=== PATIENT | male | born 1945 | race Caucasian/White ===

== ENCOUNTER → 2018-08-29 14:09 | Outpatient (CLI) | payer MEDICARE, OTHER, SELFPAY ==
[2018-08-29 16:32] LABS: PSA,Total - Annual Screen 3.88 ng/mL (0.00-4.00)
--- OUTSIDE RECORDS SUMMARY | 2018-10-11 11:49 | XMS RPT_ITS | Clinical Summary ---
:1945 Author Organization [place] [employer] [email or web address] Address [address] [place] [address] Phone Care Team Providers Name Role Phone Martina eMdina Unavailable Conditions or Problems Problem Problem Onset Status Entry Provider Comment Standard Annotate Name Code Date Date Description Extensor [id number] Active Radha Miranda Extensor tenosynovit (SNOMED 04/22 04/22 [place] tenosynovitis is of wrist CT) of wrist DeQuervains 36615717 Active Radha Miranda Radial styloid tenosynovit (SNOMED 04/22 04/[address] [place] [address] CT) Wrist pain, 02317468 Active Toya Pain in wrist right (SNOMED 04/22 04/[address]) ANAL 37648433 Active Desiree M Pruritus ani PRURITUS (SNOMED 10/[address]) ABDOMINAL 571689902 Resolved Desiree M Right upper PAIN, RIGHT (SNOMED 01/17 [place] quadrant pain UPPER CT) QUADRANT ABDOMINAL 360326427 Removed Desiree M Right upper PAIN, RIGHT (SNOMED 01/17 [place] quadrant pain UPPER CT) QUADRANT NONSPECIFIC R93.2 Correction Desiree M Abnormal ABN FINDNG (ICD-10-CM 01/13 01/17 [place] findings on RAD&OTH ) diagnostic EXAM BILARY imaging of TRCT liver and biliary tract OSTEOARTHRI 261775980 Active Radha Miranda Osteoarthritis TIS, KNEE, (SNOMED 10/17 [place] of knee LEFT CT) KNEE 71272948 Active Radha Miranda Sprain of SPRAIN, (SNOMED 10/17 10/17 [place] medial LEFT, CT) collateral MEDIAL ligament of COLLATERAL knee LIGAMENT KNEE PAIN 01121454 Active Toya Knee pain (SNOMED 10/17 10/[address]) MEDIAL 371316980 Active Toya Tear of medial MENISCUS (SNOMED 10/17 10/17 [place] meniscus of TEAR CT) knee Medications Medication Instructions Start Stop Generic Name NDC Provider Date Date LOVASTATIN 10 MG One tablet by / LOVASTATIN [id number] Toya TABS mouth daily 14 [place] BROMOCRIPTINE One tablet by / BROMOCRIPTINE [id number] Toya MESYLATE 2.5 MG mouth daily 14 MESYLATE [place] TABS ALEVE 220 MG One tablet by / NAPROXEN SODIUM 53303624776 Toya TABS mouth daily 14 [place] LEVOTHYROXINE / LEVOTHYROXINE 59455834726 Toya SODIUM 50 MCG 20 SODIUM [place] TABS NIACIN 500 MG / NIACIN 84636331271 Toya TABS 20 [place] FISH OIL 1000 MG / OMEGA-3 FATTY 94923072291 Toya CAPS 20 ACIDS [place] Medications Administered No information available. Allergies, Adverse Reactions, Alerts Allergy Name Reaction Description Start Date Severity Status Provider JOHN Critical Active Pia Coelho PRAVACHOL Critical Active Pia Coelho Results Date Name Value Unit Range Flag Description Office Visit SMOK STATUS former smoker Tobacco use [facility] MEDS REVIEW Done Documentation of current medications (procedure) Plan of Care Type Date Detail Referral Physical Therapy [facility], [address] [place] [address], [phone] Referral Physical Therapy [facility], [address] [place] [address], [phone] Pending order X-Ray, Wrist Procedures Code Procedure Name Date Entry Date CPT-63860 LAPAROSCOPY SURG CHOLECYSTECTOMY Vital Signs Date Name Value Unit Description BMI (Body Mass Index) 29.30 kg/m2 Body Mass Index [Ratio] Body Temperature 98.7 [degF] temperature E&M BP Diastolic 72 mm[Hg] blood pressure, diastolic - 8462-4 BP Systolic 127 mm[Hg] blood pressure, systolic - 8480-6 BSA (Body Surface Area) 1.96 body surface area Heart Rate 83 /min pulse rate E&M - 8867-4 Respiratory Rate 14 /min respiratory rate E&M - 9279-1 Weight Measured 186.4 [lb_av] weight E&M - 3141-9 Height 67 [in_us] height E&M - 8302-2
--- OUTSIDE RECORDS SUMMARY | 2018-10-11 11:49 | XMS RPT_ITS | Clinical Summary ---
:1945 Author Organization [place] [facility] Address [address] [place] [address] Phone Care Team Providers Name Role Phone Martina Medina Unavailable Conditions or Problems Problem Problem Onset Status Entry Provider Comment Standard Annotate Name Code Date Date Description Extensor [id number] Active Radha Miranda Extensor tenosynovit (SNOMED 04/22 04/22 [place] tenosynovitis is of wrist CT) of wrist DeQuervains 40885418 Active Radha Miranda Radial styloid tenosynovit (SNOMED 04/22 04/22 [place] [address] CT) Wrist pain, 63388899 Active Toya Pain in wrist right (SNOMED 04/22 04/[address]) ANAL 09547379 Active Desiree M Pruritus ani PRURITUS (SNOMED 10/[address]) ABDOMINAL 404860495 Resolved Desiree M Right upper PAIN, RIGHT (SNOMED 01/17 [place] quadrant pain UPPER CT) QUADRANT ABDOMINAL 087553677 Removed Desiree M Right upper PAIN, RIGHT (SNOMED 01/17 [place] quadrant pain UPPER CT) QUADRANT NONSPECIFIC R93.2 Correction Desiree M Abnormal ABN FINDNG (ICD-10-CM 01/13 01/17 [place] findings on RAD&OTH ) diagnostic EXAM BILARY imaging of TRCT liver and biliary tract OSTEOARTHRI 627300681 Active Radha Miranda Osteoarthritis TIS, KNEE, (SNOMED 10/17 [place] of knee LEFT CT) KNEE 17610148 Active Radha Miranda Sprain of SPRAIN, (SNOMED 10/17 10/17 [place] medial LEFT, CT) collateral MEDIAL ligament of COLLATERAL knee LIGAMENT KNEE PAIN 21533329 Active Radha Miranda Knee pain (SNOMED 10/17 10/[address]) MEDIAL 990903888 Active Toya Tear of medial MENISCUS (SNOMED 10/17 10/17 [place] meniscus of TEAR CT) knee Medications Medication Instructions Start Stop Generic Name NDC Provider Date Date LOVASTATIN 10 MG One tablet by / LOVASTATIN 92298828660 Toya TABS mouth daily 14 [place] BROMOCRIPTINE One tablet by / BROMOCRIPTINE 91007390528 Toya MESYLATE 2.5 MG mouth daily 14 MESYLATE [place] TABS ALEVE 220 MG One tablet by / NAPROXEN SODIUM 32014273696 Toya TABS mouth daily 14 [place] LEVOTHYROXINE / LEVOTHYROXINE 63268075154 Toya SODIUM 50 MCG 20 SODIUM [place] TABS NIACIN 500 MG / NIACIN 68904857666 Toya TABS 20 [place] FISH OIL 1000 MG / OMEGA-3 FATTY 14872969645 Tyoa CAPS 20 ACIDS [place] Medications Administered No information available. Allergies, Adverse Reactions, Alerts Allergy Name Reaction Description Start Date Severity Status Provider JOHN Critical Active Pia Coelho PRAVACHOL Critical Active Pia Coelho Results Date Name Value Unit Range Flag Description Office Visit MEDS REVIEW Done Documentation of current medications (procedure) SMOK STATUS Former smoker Tobacco use [facility] Plan of Care Type Date Detail Referral Physical Therapy [facility], [address] [place] [address], [phone] Referral Physical Therapy [facility], [address] [place] [address], [phone] Pending order X-Ray, Wrist Procedures Code Procedure Name Date Entry Date CPT-56405 LAPAROSCOPY SURG CHOLECYSTECTOMY Vital Signs Date Name [...]
--- OUTSIDE RECORDS SUMMARY | 2018-10-11 11:49 | XMS RPT_ITS | Clinical Summary ---
:1945 Author Organization [facility] Address [address] [place] [address] Phone Care Team Providers Name Role Phone Martina Medina Unavailable Conditions or Problems Problem Problem Onset Status Entry Provider Comment Standard Annotate Name Code Date Date Description ANAL 07672155 Active Desiree Chowdhury Pruritus ani PRURITUS (SNOMED 10/[address]) ABDOMINAL 471987754 Resolved Desiree M Right upper PAIN, RIGHT (SNOMED 01/17 [place] quadrant pain UPPER CT) QUADRANT ABDOMINAL 459441787 Removed Desiree M Right upper PAIN, RIGHT (SNOMED 01/17 [place] quadrant pain UPPER CT) QUADRANT NONSPECIFIC R93.2 Correction Desiree Chowdhury Abnormal ABN FINDNG (ICD-10-CM 01/13 01/17 [place] findings on RAD&OTH ) diagnostic EXAM BILARY imaging of TRCT liver and biliary tract OSTEOARTHRI 208571254 Active Radha Miranda Osteoarthritis TIS, KNEE, (SNOMED 10/17 [place] of knee LEFT CT) KNEE 13100628 Active Radha Miranda Sprain of SPRAIN, (SNOMED 10/17 10/17 [place] medial LEFT, CT) collateral MEDIAL ligament of COLLATERAL knee LIGAMENT KNEE PAIN 24378931 Active Radha Miranda Knee pain (SNOMED 10/17 10/[address]) MEDIAL 309827834 Active Radha Miranda Tear of medial MENISCUS (SNOMED 10/17 10/17 [place] meniscus of TEAR CT) knee Medications Medication Instructions Start Stop Generic Name NDC Provider Date Date LOVASTATIN 10 MG One tablet by / LOVASTATIN [id number] Radha Miranda TABS mouth daily 14 [place] BROMOCRIPTINE One tablet by / BROMOCRIPTINE 82077214470 Radha Miranda MESYLATE 2.5 MG mouth daily 14 MESYLATE [place] TABS ALEVE 220 MG One tablet by / NAPROXEN SODIUM 30158748899 Radha Miranda TABS mouth daily 14 [place] Medications Administered No information available. Allergies, Adverse Reactions, Alerts Allergy Name Reaction Description Start Date Severity Status Provider LORELCO Critical Active Pia Coelho PRAVACHOL Critical Active Pia Coelho Results Date Name Value Unit Range Flag Description Office Visit SMOK STATUS former smoker Tobacco use [facility] MEDS REVIEW Done Documentation of current medications (procedure) Plan of Care Type Date Detail Appointment 12:30 PM Radha Wilde, [address] [place] [address], [facility], [place], [address], Procedures Code Procedure Name Date Entry Date CPT-95105 LAPAROSCOPY SURG CHOLECYSTECTOMY Vital Signs Date Name [...]
--- OUTSIDE RECORDS SUMMARY | 2018-10-11 11:49 | XMS RPT_ITS | Clinical Summary ---
:1945 Author Organization [place] [employer] [facility] Address [address] [place] [address] Phone Care Team Providers Name Role Phone Martina Medina Unavailable Conditions or Problems Problem Problem Onset Status Entry Provider Comment Standard Annotate Name Code Date Date Description Extensor 639773600 Active Radha Miranda Extensor tenosynovit (SNOMED 04/22 04/22 [place] tenosynovitis is of wrist CT) of wrist DeQuervains 21736263 Active Radha Miranda Radial styloid tenosynovit (SNOMED 04/22 04/22 [place] tenosynovitis is CT) Wrist pain, 58488675 Active Toya Pain in wrist right (SNOMED 04/22 04/[address]) ANAL 10980047 Active Desiree M Pruritus ani PRURITUS (SNOMED 10/[address]) ABDOMINAL 142717325 Resolved Desiree M Right upper PAIN, RIGHT (SNOMED 01/17 [place] quadrant pain UPPER CT) QUADRANT ABDOMINAL 216254319 Removed Desiree M Right upper PAIN, RIGHT (SNOMED 01/17 [place] quadrant pain UPPER CT) QUADRANT NONSPECIFIC R93.2 Correction Desiree M Abnormal ABN FINDNG (ICD-10-CM 01/13 01/17 [place] findings on RAD&OTH ) diagnostic EXAM BILARY imaging of TRCT liver and biliary tract OSTEOARTHRI 662543787 Active Radha Miranda Osteoarthritis TIS, KNEE, (SNOMED 10/17 [place] of knee LEFT CT) KNEE 77471245 Active Radha Miranda Sprain of SPRAIN, (SNOMED 10/17 10/17 [place] medial LEFT, CT) collateral MEDIAL ligament of COLLATERAL knee LIGAMENT KNEE PAIN 41122814 Active Radha Miranda Knee pain (SNOMED 10/17 10/[address]) MEDIAL 933708335 Active Toya Tear of medial MENISCUS (SNOMED 10/17 10/17 [place] meniscus of TEAR CT) knee Medications Medication Instructions Start Stop Generic Name NDC Provider Date Date LOVASTATIN 10 MG One tablet by / LOVASTATIN [id number] Toya TABS mouth daily 14 [place] BROMOCRIPTINE One tablet by / BROMOCRIPTINE 30812072311 Toya MESYLATE 2.5 MG mouth daily 14 MESYLATE [place] TABS ALEVE 220 MG One tablet by / NAPROXEN SODIUM 45158250366 Toya TABS mouth daily 14 [place] LEVOTHYROXINE / LEVOTHYROXINE 79722311598 Toya SODIUM 50 MCG 20 SODIUM [place] TABS NIACIN 500 MG / NIACIN 68596876309 Toya TABS 20 [place] FISH OIL 1000 MG / OMEGA-3 FATTY 34627751058 Toya CAPS 20 ACIDS [place] Medications Administered No information available. Allergies, Adverse Reactions, Alerts Allergy Name Reaction Description Start Date Severity Status Provider JOHN Critical Active Pia Coelho PRAVACHOL Critical Active Pia Coelho Results Date Name Value Unit Range Flag Description Office Visit MEDS REVIEW Done Documentation of current medications (procedure) SMOK STATUS Former smoker Tobacco use [facility] Plan of Care Type Date Detail Referral Physical Therapy [facility], [address] [place] [address], [phone] Referral Physical Therapy [facility], [address] [place] [address], [phone] Pending order X-Ray, Wrist Procedures Code Procedure Name Date Entry Date CPT-80309 LAPAROSCOPY SURG CHOLECYSTECTOMY Vital Signs Date Name [...]
--- OUTSIDE RECORDS SUMMARY | 2018-10-11 11:50 | XMS RPT_ITS ---
:1945 Author Organization OHIP Care Team Providers Name Role Phone AMNA CAPELLAN ([facility]) Attending Unavailable AMNA CAPELLAN ([facility]) Referring Unavailable JODI OCAMPO Attending Unavailable IVANA MORATAYA Referring Unavailable JODI OCAMPO Referring Unavailable RYANN SCOTT ([facility]) Attending Unavailable RYANN SCOTT ([facility]) Referring Unavailable LOU RAMOS Attending Unavailable LOU RAMOS Referring Unavailable LOU RAMOS Referring Unavailable Jonathan Lobo Attending Unavailable Jonathan Lobo Referring Unavailable Lou Ramos Primary Care Unavailable Radha Wilde Attending Unavailable Opal Cooper Primary Care Unavailable PROBLEMS PROBLEMS DATE TYPE CONDITION / CODE ATTENDING STATUS SOURCE 09/15/2018 Active Dizziness and giddiness NA Active [place] / R42(ICD-10) Clinic Main [place] Repository 08/29/2018 Unknown Z12.5 - Encounter for Jonathan Lobo Active [facility] screening for malignant [facility] neoplasm of prostate / Hospital Z12.5(ICD-10) Repository 01/12/2017 Active Benign neoplasm of NA Active [facility] pituitary gland / Clinic Main D35.2(ICD-10) [place] Repository 10/27/2014 Active Mixed hyperlipidemia / NA Active [place] E78.2(ICD-10) Clinic Main [place] Repository 01/25/2018 Active Hyperprolactinemia / NA Active [place] E22.1(ICD-10) Clinic Main [place] Repository 01/26/2018 Active Hypothyroidism, NA Active [facility] unspecified / Clinic Main E03.9(ICD-10) [place] Repository 01/26/2018 Active Testicular hypofunction NA Active [place] / E29.1(ICD-10) [facility] Main [place] Repository 09/29/2017 Unknown S66.911D - Strain of Chicorelli, Active [facility] unspecified muscle, [facility] fascia and tendon at Hospital wrist and hand level, Repository right hand, subsequent encounter / S66.911D(ICD-10) PROCEDURES PROCEDURES No Procedure Records FoundRESULTS RESULTS CBC AND DIFFERENTIAL Collected: 09/15/2018 Status: F Source: [place] 12:55 PM [facility] REPOSITORY TYPE CODE TESTS RESULT OUT OF REFERENCE UNITS RANGE LAB WBC 3.70-11.00 k/uL WBC 6.96 LAB RBC 4.20-6.00 m/uL RBC 5.15 LAB HGB 13.0-17.0 g/dL Hemoglobin 15.6 LAB HCT 39.0-51.0 % Hematocrit 49.0 LAB MCV 80.0-100.0 fL MCV 95.1 LAB MCH 26.0-34.0 pG MCH 30.3 LAB MCHC 30.5-36.0 g/dL MCHC 31.8 LAB RDWCV 11.5-15.0 % RDW-CV 13.4 LAB PLTCT 150-400 k/uL Platelet Count 171 LAB MPV 9.0-12.7 fL MPV 11.3 LAB ANEUT % Neut% 60.4 LAB AANEUT 1.45-7.50 k/uL Abs Neut 4.20 LAB ALYMP % Lymph% 28.7 LAB AALYMP 1.00-4.00 k/uL Abs Lymph 2.00 LAB AMONO % Hamlin% 8.6 LAB AAMONO <0.87 k/uL Abs Hamlin 0.60 LAB AEOS % Eosin% 1.4 LAB AAEOS <0.46 k/uL Abs Eosin 0.10 LAB ABASO % Baso% 0.9 LAB AABASO <0.11 k/uL Abs Baso 0.06 LAB AUNRBC 0 /100 WBC NRBCs 0.0 LAB ABNRBC <0.01 k/uL Absolute nRBC <0.01 LAB DTYP DTYPE Auto Diff Performed By: #### CBCDIF, BMP, TSH #### [facility] [address] [place], [place] [address] BASIC METABOLIC PANL Collected: 09/15/2018 Status: F Source: [place] 12:55 PM [facility] REPOSITORY TYPE CODE TESTS RESULT OUT OF REFERENCE UNITS RANGE LAB GLU 74-99 mg/dL Glucose 78 Result Comment: The [place] Diabetes Association (ADA) provides guidance for cutoff values for fasting glucose and random glucose. The ADA defines fasting as no caloric intake for at least 8 hours. Fas ting plasma glucose results between 100 to 125 mg/dL indicate increased risk for diabetes (prediabetes). Fasting plasma glucose results greater than or equal to 126 mg/dL meet the criteria for diagnosis of diabetes. In the absence of unequivocal hyperglycemia, results should be confirmed by repeat testing. In a patient with classic symptoms of hyperglycemia or hyperglycemic crisis, random plasma glucose results greater than or equal to 200 mg/dL meet the criteria for diagnosis of diabetes. Reference: Standards of Medical Care in Diabetes 2016, [place] Diabetes Association. Diabetes Care. 2016.39(Suppl 1). LAB BUN 9-24 mg/dL BUN 18 LAB CRET 0.73-1.22 mg/dL Creatinine 1.11 LAB NA 136-144 mmol/L Sodium 140 LAB K 3.7-5.1 mmol/L Potassium 4.6 LAB CL 97-105 mmol/L Chloride 101 LAB CO2 22-30 mmol/L CO2 26 LAB AGAP 9-18 mmol/L Anion Gap 13 LAB CA 8.5-10.2 mg/dL Calcium, Total 9.6 LAB GFRAA eGFR- Amer. >60 LAB GFRNAA . eGFR-All Other Races >60 Result Comment: eGFR (Estimated GFR) Units of measure: mL/min/1.73 meters squared eGFR is derived from the reexpressed MDRD Study equation using the following parameters: serum creatinine, age, gender and race. The creatinine assay has been calibrated to be traceable to IDMS. An eGFR <60 mL/min/1.73m2 for >3 months is consistent with chronic kidney disease. Refer to KDOQI guidelines for clinical interpretation. In patients with unstable renal function, e.g. those with acute kidney injury, the eGFR may not accurately reflect actual GFR. Performed By: #### CBCDIF, BMP, TSH #### [facility] [address] [place], [place] [address] TSH Collected: 09/15/2018 Status: F Source: [place] 12:55 PM [facility] REPOSITORY TYPE CODE TESTS RESULT OUT OF RANGE REFERENCE UNITS LAB TSH 0.400-5.500 uU/mL TSH 4.260 Performed By: #### CBCDIF, BMP, TSH #### [facility] [address] [place], [place] [address] PROGRESS Observed: 09/15/2018 Status: COMPLETED Source: [place] 11:29 AM [facility] [place] REPOSITORY HNO ID: [id number] Author: Lou Ramos Service: (none) Author Type: Physician Type: Progress Notes Filed: 09/15/2018 1:12 PM Note Text: Patient presents with: Establish Care Imm/Inj: Flu Vaccine HPI: Patient presents today for office visit for follow up. HYPOTHYROID: overall doing well. Energy level is stable. HLD:no myalgias. ENDO:still following with endo. No issues with meds. Gets occasionally lightheaded if he does heavy exertion. No chest pain, shortness of breath. No syncope. Usually if he sits for a minute he feels better. Has happened over the last year. No edema. No headache No true vertigo. No speech or vision changes. No numbness or weakness. 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 Component Latest Ref Rng AND Units 04/07/2018 04/27/2018 Protein, Total 6.3 - 8.0 g/dL 6.4 Albumin 3.9 - 4.9 g/dL 4.5 Calcium 8.5 - 10.2 mg/dL 9.3 Bilirubin, Total 0.2 - 1.3 mg/dL 0.7 Alkaline Phosphatase 36 - 108 U/L 82 AST 14 - 40 U/L 27 Glucose 74 - 99 mg/dL 87 BUN 9 - 24 mg/dL 23 Creatinine 0.73 - 1.22 mg/dL 1.23 (H) Sodium 136 - 144 mmol/L 142 Potassium 3.7 - 5.1 mmol/L 4.1 Chloride 97 - 105 mmol/L 104 CO2 22 - 30 mmol/L 26 Anion Gap 9 - 18 mmol/L 12 ALT 10 - 54 U/L 16 eGFR- >60 eGFR-All Other Races . 58 Cholesterol, Total <200 mg/dL 161 Triglyceride <150 mg/dL 209 (H) HDL Cholesterol >39 mg/dL 39 (L) LDL Cholesterol <100 mg/dL 80 Non HDL Cholesterol <130 mg/dL 122 Fasting Time hrs 9 VLDL Cholesterol <30 mg/dL 42 (H) TC:HDL Ratio <5.10 4.13 LDL:HDL Ratio <2.54 2.05 Prolactin 4.0 - 15.2 ng/mL 4.0 MEDICATIONS: Current Outpatient Prescriptions: bromocriptine (PARLODEL) 2.5 mg tablet Take 0.5 tablets by mouth every other day. Cholecalciferol, Vitamin D3, (VITAMIN D) 1,000 unit cap Take 1,000 Units by mouth once daily. levothyroxine (SYNTHROID) 50 mcg tablet Take 1 tablet by mouth once daily. lovastatin (MEVACOR) 10 mg tablet Take 1 tablet by mouth daily at bedtime. naproxen sodium (ALEVE) 220 mg tablet Take 1 tablet by mouth as needed. niacin (NIACIN) 500 mg tablet Take 500 mg by mouth daily with breakfast. Breeding [id number] 500 mg-500 mcg -1 mg-12.5 mg cap Take 500 mg by mouth. No current facility-administered medications for this visit. ALLERGIES: ALLERGIES Allergen Reactions - Lorelco Other] [Oth* Unknown - Pravachol [Pravasta* PAST MEDICAL HISTORY Diagnosis Date - Diverticulosis of colon (without mention of hemorrhage) - Erectile dysfunction 10/12/2013 - Family history of colon cancer 12/26/2015 - Hyperplasia of prostate - Hyperprolactinemia (HCC) - HYPERTROPHY PROSTATE WITH OBST 09/03/2005 - Hypothyroid - INGUINAL HERNIA, BILAT, RECURRENT W/O GANGRENE/OBSTRUCTION 09/01/2005 - Personal history of colonic polyps Colon polyps - Pituitary adenoma (HCC) - Pure hypercholesterolemia PAST SURGICAL HISTORY Procedure Laterality Date - CHOLECYSTECTOMY - COLONOSCOP W/ OR W/O BRS SPEC 2004 Colonoscopy - COLONOSCOP W/ OR W/O BRSH SPEC 12/26/09 Repeat in 5 years (-2014) - KNEE ARTHROSCOPY/SURGERY - REPAIR ING HERNIA,5+Y/O,REDUCIBL Hernia repair, inguinal, recent laparoscopic, had 2 prior hernia repairs on LT - REPAIR OF NASAL SEPTUM Septoplasty - TRANSURETHRAL ELEC-SURG PROSTATECTOM 2010 TURP FAMILY HISTORY Problem Relation Age of Onset - Coronary Artery Disease Father - Colon Cancer Mother Social History Marital status: Spouse name: opal Years of education: Number of children: 5 Occupational History Occupation Employer Comment [employer] retired Social History Main Topics Smoking status: Former Smoker Packs/day: 0.00 Years: 0.00 Quit date: 09/03/1975 Smokeless tobacco: Never Used Comment: vary rare usage Alcohol use: Yes Comment: TWICE YEARLY Drug use: No Sexual activity: Yes Partners with: Female control/protection: Surgical Other Topics Concern Service No Blood Transfusions No Caffeine Concern No Occupational Exposure No Hobby Hazards No Sleep Concern No Stress Concern No Weight Concern No Special Diet No Back Care No Exercise Yes Comment:moderate Bike Helmet No Seat Belt Yes Self-Exams No Reviewed current medications, allergies, past medical history, surgical history, family history and social history today. REVIEW OF SYSTEMS GI: Negative for abdominal discomfort, blood in stools or black stools, change in bowel habit : seeing Dr. Lobo. All other reviewed and negative other than HPI. HEALTH MAINTENANCE: Reviewed health maintenance issues today and recommended the following in detail. ANNUAL PCP TEAM CHRONIC DISEASE VISIT due on 1962 ADULT PREVNAR-13 -recommended. INFLUENZA(1) due on 06/04/2018 VITALS: BP 134/62 Pulse 60 Resp 16 Wt 84.8 kg (187 lb) BMI 28.57 kg/m? BP w/Orthostatic Vitals Date and Time Orthostatic BP Orthostatic Pulse BP Pulse BP Position BP Site BP Cuff Size 09/15/18 1214 129/81 60 -- -- Standing Right Arm -- 09/15/18 1209 135/81 58 -- -- Sitting Right Arm -- 09/15/18 1208 142/84 58 -- -- Supine Right Arm -- 09/15/18 1119 -- -- 134/62 60 -- -- -- Last 4 Encounter Wt Readings: Date: Wt: 09/15/2018 84.8 kg (187 lb) 03/28/2018 84.8 kg (187 lb) 01/25/2018 84.7 kg (186 lb 12.8 oz) 10/18/2017 84.4 kg (186 lb) PHYSICAL EXAMINATION: General appearance: Well appearing, alert, in no acute distress, well-hydrated, well nourished. Skin: Skin color, texture, turgor normal, no suspicious rashes or lesions Head: Normocephalic, no masses, lesions, tenderness or abnormalities Eyes: Anicteric sclera. Pupils are equally round and reactive to light. Extraocular movements are intact. Ears: External ears normal, canals clear Nose/Sinuses: Nares normal, septum midline, mucosa normal, no drainage or sinus tenderness Oropharynx: Lips, mucosa, and tongue normal, teeth and gums normal, oropharynx normal Neck: Supple, no adenopathy; thyroid symmetric, normal size, no bruits Lungs: lungs clear to auscultation. No wheezing, rhonchi, rales Heart: RRR without murmur, gallop, or rubs. No ectopy Abdomen: Normal abdominal exam, Abdomen soft, non-tender. Bowel sounds normal. No masses, organomegaly Extremities: No deformities, edema, skin discoloration, clubbing or cyanosis. Good capillary refill. Musculoskeletal: No joint swelling, deformity, or tenderness Peripheral pulses: Normal Neuro: Gait normal. Reflexes normal and symmetric. Sensation grossly intact., Negative findings: cranial nerves 2-12 intact, muscle strength normal, reflexes normal and symmetric ASSESSMENT/PLAN: 1. Lightheaded - ICD9: 780.4, ICD10: R42 (primary diagnosis) - encourage fluids. Call if worsens. Work up as below. rto in four weeks. - ECG COMPLETE W INTERPRETATION - CBC + DIFF - BASIC METABOLIC PNL - ECHO - PERFLUTREN LIPID MICROSPHERES 1.1 MG/ML INTRAVENOUS SUSPENSION - HOLTER MONITOR 24 HOUR 2. Need for vaccination - ICD9: V05.9, ICD10: Z23 - INFLUENZA SEASONAL HIGH DOSE AGE 65+ 3. Mixed hyperlipidemia - ICD9: 272.2, ICD10: E78.2 - good control - Continue current medication. 4. Acquired hypothyroidism - ICD9: 244.9, ICD10: E03.9 - Instructed patient on importance of taking on an empty stomach either first thing in the morning or at bedtime. - TSH BLD 5. Hyperprolactinemia (HCC) - ICD9: 253.1, ICD10: E22.1 - per endo 6. Benign prostatic hyperplasia without lower urinary tract symptoms - ICD9: 600.00, ICD10: N40.0 - per urology 7. Bradycardia - ICD9: 427.89, ICD10: R00.1 - as above. - ECHO - PERFLUTREN LIPID MICROSPHERES 1.1 MG/ML INTRAVENOUS SUSPENSION - HOLTER MONITOR 24 HOUR 8. Near syncope - ICD9: 780.2, ICD10: R55 As above. - ECHO - PERFLUTREN LIPID MICROSPHERES 1.1 MG/ML INTRAVENOUS SUSPENSION Lou Ramos MD RTO in four weeks and prn. PROGRESS Observed: 09/15/2018 Status: COMPLETED Source: [place] 11:23 AM [facility] [place] REPOSITORY HNO ID: [id number] Author: Wanda Palm Ma Service: (none) Author Type: (none) Type: Progress Notes Filed: 09/15/2018 1:12 PM Note Text: 72 year old male here for INACTIVATED INFLUENZA VACCINE. Season Patient is identified by name and date of : Yes [] CONTRAINDICATIONS color enhanced section Age less than 6 months? No Allergy to eggs, chicken, chicken feathers, or chicken dander? No Allergy to thimerosal (a preservative) or formaldehyde, gelatin? No History of severe reaction to any vaccine component or a previous dose of influenza vaccination? No History of Guillain-Edgemont Syndrome within 6 weeks after a previous influenza vaccine? No Patient is not moderately or severely ill? No Current temperature greater or equal to 100.4F? No History of Bone Marrow Transplant prior 6 months or solid organ transplant in the past 3 months ? No History of fainting after a prior injection or medical procedure? No- ? If patient has fainted in the past, the CDC recommends sitting or lying down for 15 minutes after the vaccination. [] VERIFICATION color enhanced section Was the answer Yes for any of the above contraindications? No contraindications present. Acceptable to proceed with vaccine. Patient/guardian agrees the above answers are true to the best of their knowledge? Yes Flu vaccine information sheet given? Yes See immunization activity in [facility] for details of immunizations adminstered today. Patient age: [age] year old For The 1813-9208 Flu Season 6-35 months old: Fluzone 0.25 ml - IM (Preservative Free) 3 years of age: Fluzone 0.5 ml - IM (Preservative Free) 3 years and older: Fluzone 0.5 ml- IM-(with Preservatives) 65+ years old: 2-49 years old Fluzone High-Dose 0.5 ml - IM (Preservative Free) FLUMIST- intranasal REMEMBER: If patient is less than 9 years of age and this is the first vaccine of Influenza to be received in any flu season, they should receive a second dose in one months time. CNOV Observed: 09/15/2018 Status: COMPLETED Source: [place] 11:20 AM [facility] REPOSITORY Office Visit ([facility]) GALEN BYERS ([id number]) 1945 M Date Time Provider Department 09/15/18 11:20 AM [facility] During your visit today, we recorded the following information about you: Pulse Respiration Blood pressure Weight 60/minute 16/minute 134/62 84.8 kg Wanda Néstor Alcala 09/15/2018 1:12 PM Signed 72 year old male here for INACTIVATED INFLUENZA VACCINE. Season Patient is identified by name and date of : Yes [] CONTRAINDICATIONS color enhanced section Age less than 6 months? No Allergy to eggs, chicken, chicken feathers, or chicken dander? No Allergy to thimerosal (a preservative) or formaldehyde, gelatin? No History of severe reaction to any vaccine component or a previous dose of influenza vaccination? No History of Guillain-Edgemont Syndrome within 6 weeks after a previous influenza vaccine? No Patient is not moderately or severely ill? No Current temperature greater or equal to 100.4F? No History of Bone Marrow Transplant prior 6 months or solid organ transplant in the past 3 months ? No History of fainting after a prior injection or medical procedure? No- ? If patient has fainted in the past, the CDC recommends sitting or lying down for 15 minutes after the vaccination. [] VERIFICATION color enhanced section Was the answer Yes for any of the above contraindications? No contraindications present. Acceptable to proceed with vaccine. Patient/guardian agrees the above answers are true to the best of their knowledge? Yes Flu vaccine information sheet given? Yes See immunization activity in [facility] for details of immunizations adminstered today. Patient age: [age] year old For The 3386-4067 Flu Season 6-35 months old: Fluzone 0.25 ml - IM (Preservative Free) 3 years of age: Fluzone 0.5 ml - IM (Preservative Free) 3 years and older: Fluzone 0.5 ml- IM-(with Preservatives) 65+ years old: 2-49 years old Fluzone High-Dose 0.5 ml - IM (Preservative Free) FLUMIST- intranasal REMEMBER: If patient is less than 9 years of age and this is the first vaccine of Influenza to be received in any flu season, they should receive a second dose in one months time. Lou Ramos MD 09/15/2018 1:12 PM Signed Patient presents with: Establish Care Imm/Inj: Flu Vaccine HPI: Patient presents today for office visit for follow up. HYPOTHYROID: overall doing well. Energy level is stable. HLD:no myalgias. ENDO:still following with endo. No issues with meds. Gets occasionally lightheaded if he does heavy exertion. No chest pain, shortness of breath. No syncope. Usually if he sits for a minute he feels better. Has happened over the last year. No edema. No headache No true vertigo. No speech or vision changes. No numbness or weakness. 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 Component Latest Ref Rng AND Units 04/07/2018 04/27/2018 Protein, Total 6.3 - 8.0 g/dL 6.4 Albumin 3.9 - 4.9 g/dL 4.5 Calcium 8.5 - 10.2 mg/dL 9.3 Bilirubin, Total 0.2 - 1.3 mg/dL 0.7 Alkaline Phosphatase 36 - 108 U/L 82 AST 14 - 40 U/L 27 Glucose 74 - 99 mg/dL 87 BUN 9 - 24 mg/dL 23 Creatinine 0.73 - 1.22 mg/dL 1.23 (H) Sodium 136 - 144 mmol/L 142 Potassium 3.7 - 5.1 mmol/L 4.1 Chloride 97 - 105 mmol/L 104 CO2 22 - 30 mmol/L 26 Anion Gap 9 - 18 mmol/L 12 ALT 10 - 54 U/L 16 eGFR- >60 eGFR-All Other Races . 58 Cholesterol, Total <200 mg/dL 161 Triglyceride <150 mg/dL 209 (H) HDL Cholesterol >39 mg/dL 39 (L) LDL Cholesterol <100 mg/dL 80 Non HDL Cholesterol <130 mg/dL 122 Fasting Time hrs 9 VLDL Cholesterol <30 mg/dL 42 (H) TC:HDL Ratio <5.10 4.13 LDL:HDL Ratio <2.54 2.05 Prolactin 4.0 - 15.2 ng/mL 4.0 MEDICATIONS: Current Outpatient Prescriptions: bromocriptine (PARLODEL) 2.5 mg tablet Take 0.5 tablets by mouth every other day. Cholecalciferol, Vitamin D3, (VITAMIN D) 1,000 unit cap Take 1,000 Units by mouth once daily. levothyroxine (SYNTHROID) 50 mcg tablet Take 1 tablet by mouth once daily. lovastatin (MEVACOR) 10 mg tablet Take 1 tablet by mouth daily at bedtime. naproxen sodium (ALEVE) 220 mg tablet Take 1 tablet by mouth as needed. niacin (NIACIN) 500 mg tablet Take 500 mg by mouth daily with breakfast. Breeding 1-[id number] 500 mg-500 mcg -1 mg-12.5 mg cap Take 500 mg by mouth. No current facility-administered medications for this visit. ALLERGIES: ALLERGIES Allergen Reactions - Lorelco Other] [Oth* Unknown - Pravachol [Pravasta* PAST MEDICAL HISTORY Diagnosis Date - Diverticulosis of colon (without mention of hemorrhage) - Erectile dysfunction 10/12/2013 - Family history of colon cancer 12/26/2015 - Hyperplasia of prostate - Hyperprolactinemia (HCC) - HYPERTROPHY PROSTATE WITH OBST 09/03/2005 - Hypothyroid - INGUINAL HERNIA, BILAT, RECURRENT W/O GANGRENE/OBSTRUCTION 09/01/2005 - Personal history of colonic polyps Colon polyps - Pituitary adenoma (HCC) - Pure hypercholesterolemia PAST SURGICAL HISTORY Procedure Laterality Date - CHOLECYSTECTOMY - COLONOSCOP W/ OR W/O BRSH SPEC 2004 Colonoscopy - COLONOSCOP W/ OR W/O BRSH SPEC 12/26/09 Repeat in 5 years (-2014) - KNEE ARTHROSCOPY/SURGERY - REPAIR ING HERNIA,5+Y/O,REDUCIBL Hernia repair, inguinal, recent laparoscopic, had 2 prior hernia repairs on LT - REPAIR OF NASAL SEPTUM Septoplasty - TRANSURETHRAL ELEC-SURG PROSTATECTOM 2009 TURP FAMILY HISTORY Problem Relation Age of Onset - Coronary Artery Disease Father - Colon Cancer Mother Social History Marital status: Spouse name: opal Years of education: Number of children: 5 Occupational History Occupation Employer Comment [employer] retired Social History Main Topics Smoking status: Former Smoker Packs/day: 0.00 Years: 0.00 Quit date: 09/03/1975 Smokeless tobacco: Never Used Comment: vary rare usage Alcohol use: Yes Comment: TWICE YEARLY Drug use: No Sexual activity: Yes Partners with: Female control/protection: Surgical Other Topics Concern Service No Blood Transfusions No Caffeine Concern No Occupational Exposure No Hobby Hazards No Sleep Concern No Stress Concern No Weight Concern No Special Diet No Back Care No Exercise Yes Comment:moderate Bike Helmet No Seat Belt Yes Self-Exams No Reviewed current medications, allergies, past medical history, surgical history, family history and social history today. REVIEW OF SYSTEMS GI: Negative for abdominal discomfort, blood in stools or black stools, change in bowel habit : seeing Dr. Lobo. All other reviewed and negative other than HPI. HEALTH MAINTENANCE: Reviewed health maintenance issues today and recommended the following in detail. ANNUAL PCP TEAM CHRONIC DISEASE VISIT due on 1962 ADULT PREVNAR-13 -recommended. INFLUENZA(1) due on 06/04/2018 VITALS: BP 134/62 Pulse 60 Resp 16 Wt 84.8 kg (187 lb) BMI 28.57 kg/m? BP w/Orthostatic Vitals Date and Time Orthostatic BP Orthostatic Pulse BP Pulse BP Position BP Site BP Cuff Size 09/15/18 1214 129/81 60 -- -- Standing Right Arm -- 09/15/18 1209 135/81 58 -- -- Sitting Right Arm -- 09/15/18 1208 142/84 58 -- -- Supine Right Arm -- 09/15/18 1119 -- -- 134/62 60 -- -- -- Last 4 Encounter Wt Readings: Date: Wt: 09/15/2018 84.8 kg (187 lb) 03/28/2018 84.8 kg (187 lb) 01/25/2018 84.7 kg (186 lb 12.8 oz) 10/18/2017 84.4 kg (186 lb) PHYSICAL EXAMINATION: General appearance: Well appearing, alert, in no acute distress, well-hydrated, well nourished. Skin: Skin color, texture, turgor normal, no suspicious rashes or lesions Head: Normocephalic, no masses, lesions, tenderness or abnormalities Eyes: Anicteric sclera. Pupils are equally round and reactive to light. Extraocular movements are intact. Ears: External ears normal, canals clear Nose/Sinuses: Nares normal, septum midline, mucosa normal, no drainage or sinus tenderness Oropharynx: Lips, mucosa, and tongue normal, teeth and gums normal, oropharynx normal Neck: Supple, no adenopathy; thyroid symmetric, normal size, no bruits Lungs: lungs clear to auscultation. No wheezing, rhonchi, rales Heart: RRR without murmur, gallop, or rubs. No ectopy Abdomen: Normal abdominal exam, Abdomen soft, non-tender. Bowel sounds normal. No masses, organomegaly Extremities: No deformities, edema, skin discoloration, clubbing or cyanosis. Good capillary refill. Musculoskeletal: No joint swelling, deformity, or tenderness Peripheral pulses: Normal Neuro: Gait normal. Reflexes normal and symmetric. Sensation grossly intact., Negative findings: cranial nerves 2-12 intact, muscle strength normal, reflexes normal and symmetric ASSESSMENT/PLAN: 1. Lightheaded - ICD9: 780.4, ICD10: R42 (primary diagnosis) - encourage fluids. Call if worsens. Work up as below. rto in four weeks. - ECG COMPLETE W INTERPRETATION - CBC + DIFF - BASIC METABOLIC PNL - ECHO - PERFLUTREN LIPID MICROSPHERES 1.1 MG/ML INTRAVENOUS SUSPENSION - HOLTER MONITOR 24 HOUR 2. Need for vaccination - ICD9: V05.9, ICD10: Z23 - INFLUENZA SEASONAL HIGH DOSE AGE 65+ 3. Mixed hyperlipidemia - ICD9: 272.2, ICD10: E78.2 - good control - Continue current medication. 4. Acquired hypothyroidism - ICD9: 244.9, ICD10: E03.9 - Instructed patient on importance of taking on an empty stomach either first thing in the morning or at bedtime. - TSH BLD 5. Hyperprolactinemia (HCC) - ICD9: 253.1, ICD10: E22.1 - per endo 6. Benign prostatic hyperplasia without lower urinary tract symptoms - ICD9: 600.00, ICD10: N40.0 - per urology 7. Bradycardia - ICD9: 427.89, ICD10: R00.1 - as above. - ECHO - PERFLUTREN LIPID MICROSPHERES 1.1 MG/ML INTRAVENOUS SUSPENSION - HOLTER MONITOR 24 HOUR 8. Near syncope - ICD9: 780.2, ICD10: R55 As above. - ECHO - PERFLUTREN LIPID MICROSPHERES 1.1 MG/ML INTRAVENOUS SUSPENSION Lou Ramos MD RTO in four weeks and prn. Referring Provider: SELF [200] Allergies As of Date: 09/15/2018 Noted Allergy Reaction [place]orelco Other] [Other] 04/13/2005 16 - Unknown PRAVACHOL (PRAVASTATIN SODIUM) 04/13/2005 Date Reviewed: 09/15/2018 Reviewed by: Wanda Palm Ma - Fully Assessed Reason for Visit: Establish Care [42] Imm/Inj [58] Cmt: Flu Vaccine Reason For Visit History Recorded Primary Visit Diagnosis:Lightheaded [R42] Other Visit Diagnoses:Need for vaccination [Z23] Mixed hyperlipidemia [E78.2] Acquired hypothyroidism [E03.9] Hyperprolactinemia (HCC) [E22.1] Benign prostatic hyperplasia without lower urinary tract symptoms [N40.0] Bradycardia [R00.1] Near syncope [R55] Order(s):INFLUENZA SEASONAL HIGH DOSE AGE 65+ [[id number]] Order #: [id number] ECG COMPLETE W INTERPRETATION [ECG01] Order #: [id number] FUTURE CBC + DIFF [SQCBCDIF] Order #: [id number] FUTURE BASIC METABOLIC PNL [SQBMP] Order #: [id number] FUTURE ECHO [[id number]] Order #: [id number]: 1 FUTURE perflutren lipid microspheres (DEFINITY) 1.1 mg/mL injection (to be provided with echo procedure)Inject 1.3 mL intravenously as directed.Disp: 1.3 mLRfl: 0 HOLTER MONITOR 24 HOUR [[id number]] Order #: [id number] TSH BLD [SQTSH] Order #: [id number] FUTURE Prescriptions as of 09/15/2018 Sig: BROMOCRIPTINE 2.5 MG TABLET Take 0.5 tablets by mouth andrez* CHOLECALCIFEROL (VITAMIN D3) * Take 1,000 Units by mouth onc* LEVOTHYROXINE 50 MCG TABLET Take 1 tablet by mouth once d* LOVASTATIN 10 MG TABLET Take 1 tablet by mouth daily * NAPROXEN SODIUM 220 MG TABLET Take 1 tablet by mouth as nee* NIACIN 500 MG TABLET Take 500 mg by mouth daily wi* OMEGA 3 500 [id number] 50* Take 500 mg by mouth. PERFLUTREN LIPID MICROSPHERES* Inject 1.3 mL intravenously a* More... Problem List As Of Date 09/15/2018 Noted Resolved Mixed hyperlipidemia [E78.2] INVALID FOR* More... 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 Erectile dysfunction [N52.9] INVALID FOR*12/21/2016 Hypothyroidism [E03.9] INVALID FOR* Family history of colon cancer [Z80.0] INVALID FOR*12/21/2016 Rectal bleeding [K62.5] INVALID FOR*12/21/2016 Hyperprolactinemia (HCC) [E22.1] INVALID FOR* Benign prostatic hyperplasia without lower urin*INVALID FOR* Prescriptions ordered this encounter Disp Refills Start End PERFLUTREN LIPID MICROSPHERES 1.1 MG* 1.3 * 0 09/15/2018 09/15/2019 Class: In Office Route: INTRAVENOUS Sig: Inject 1.3 mL intravenously as directed. Medications Discontinued During This Encounter ketorolac (ACULAR) 0.5 % ophthalmic * 09/15/2018 Class: Historical Med Si Drop four times daily. Disc: Course of therapy completed moxifloxacin (MOXEZA) 0.5 % viscous * 09/15/2018 Class: Historical Med Route: OPHTHALMIC Sig: Use in eyes. Disc: Course of therapy completed Disposition: Return in about 4 weeks (around 10/13/2018). Follow-up and Disposition History Recorded Encounter Status:Closed by LOU RAMOS MD on 09/15/18 PSA,TOTAL - ANNUAL Collected: 08/29/2018 Status: F Source: [place] SCREEN 2:15 PM [facility] [place] TYPE CODE TESTS RESULT OUT OF RANGE REFERENCE UNITS LAB [id number] 0.00-4.00 ng/mL Normal PSA,TOT 3.88 SCREEN Result Comment: This test was performed using the TPSA assay method for the [employer] chemistry system. Values obtained with different assay methods cannot be used interchangably. When changing PSA assays in the course of monitoring a patient, additional sequential testing should be carried out to confirm baseline values. Performed By: #### [id number] #### [facility] [address] [place], [address] PROLACTIN Collected: 04/27/2018 Status: F Source: [place] 8:53 AM [facility] REPOSITORY TYPE CODE TESTS RESULT OUT OF REFERENCE UNITS RANGE LAB PROL 4.0-15.2 ng/mL Prolactin 4.0 Performed By: #### PROL #### [facility] [address] [place], [place] [address] COMP METABOLIC PANEL Collected: 04/07/2018 Status: F Source: [place] 9:05 AM [facility] REPOSITORY TYPE CODE TESTS RESULT OUT OF REFERENCE UNITS RANGE LAB TP 6.3-8.0 g/dL Protein, Total 6.4 LAB ALB 3.9-4.9 g/dL Albumin 4.5 LAB CA 8.5-10.2 mg/dL Calcium, Total 9.3 LAB TBIL 0.2-1.3 mg/dL Bilirubin, Total 0.7 LAB ALKP 36-108 U/L Alkaline Phosphatase 82 LAB AST 14-40 U/L AST 27 LAB GLU 74-99 mg/dL Glucose 87 Result Comment: The [place] Diabetes Association (ADA) provides guidance for cutoff values for fasting glucose and random glucose. The ADA defines fasting as no caloric intake for at least 8 hours. Fas ting plasma glucose results between 100 to 125 mg/dL indicate increased risk for diabetes (prediabetes). Fasting plasma glucose results greater than or equal to 126 mg/dL meet the criteria for diagnosis of diabetes. In the absence of unequivocal hyperglycemia, results should be confirmed by repeat testing. In a patient with classic symptoms of hyperglycemia or hyperglycemic crisis, random plasma glucose results greater than or equal to 200 mg/dL meet the criteria for diagnosis of diabetes. Reference: Standards of Medical Care in Diabetes 2016, [place] Diabetes Association. Diabetes Care. 2016.39(Suppl 1). LAB BUN 9-24 mg/dL BUN 23 LAB CRET 0.73-1.22 mg/dL Creatinine High 1.23 LAB NA 136-144 mmol/L Sodium 142 LAB K 3.7-5.1 mmol/L Potassium 4.1 LAB CL 97-105 mmol/L Chloride 104 LAB CO2 22-30 mmol/L CO2 26 LAB AGAP 9-18 mmol/L Anion Gap 12 LAB ALT 10-54 U/L ALT 16 LAB GFRAA eGFR- Amer. >60 LAB GFRNAA . eGFR-All Other Races 58 Result Comment: eGFR (Estimated GFR) Units of measure: mL/min/1.73 meters squared eGFR is derived from the reexpressed MDRD Study equation using the following parameters: serum creatinine, age, gender and race. The creatinine assay has been calibrated to be traceable to IDMS. An eGFR <60 mL/min/1.73m2 for >3 months is consistent with chronic kidney disease. Refer to KDOQI guidelines for clinical interpretation. In patients with unstable renal function, e.g. those with acute kidney injury, the eGFR may not accurately reflect actual GFR. Performed By: #### CMP, LIPB #### [facility] [address] [place], [place] [address] LIPID PANEL, BASIC Collected: 04/07/2018 Status: F Source: [place] 9:05 AM [facility] REPOSITORY TYPE CODE TESTS RESULT OUT OF REFERENCE UNITS RANGE LAB CHOL <200 mg/dL Cholesterol 161 Result Comment: <200 mg/dL, Desirable 200-239 mg/dL, Borderline high >239 mg/dL, High LAB TRIGLY <150 mg/dL Triglyceride High 209 Result Comment: <150 mg/dL, Normal 150-199 mg/dL, Borderline high 200-499 mg/dL, High >499 mg/dL, Very high LAB HDL >39 mg/dL HDL-Cholesterol Low 39 Result Comment: 40-59 mg/dL, Acceptable >59 mg/dL, High: Negative risk factor for coronary heart disease <40 mg/dL, Low: Positive risk factor for coronary heart disease LAB LDL <100 mg/dL LDL-Cholesterol 80 Result Comment: <100 mg/dL, Optimal 100-129 mg/dL, Near optimal/above optimal 130-159 mg/dL, Borderline high 160-189 mg/dL, High >189 mg/dL, Very high Secondary prevention optimal LDL Cholesterol levels are recommended to be < 70 mg/dL LAB NONHDL <130 mg/dL Non HDL Cholesterol 122 Result Comment: <130 mg/dL, Optimal 130-159 mg/dL, Near optimal/above optimal 160-189 mg/dL, Borderline high 190-219 mg/dL, High >219 mg/dL, Very high Secondary prevention optimal non HDL Cholesterol levels are recommended to be < 100 mg/dL LAB FT hrs Fasting Time 9 LAB VLDL <30 mg/dL High VLDL Cholesterol 42 LAB TCHDL <5.10 TC:HDL Ratio 4.13 LAB LDLHDL <2.54 LDL:HDL Ratio 2.05 Result Comment: Reference: 1. National Cholesterol Education Program ATP III Guideline At-A-Glance Quick Desk Reference: National Heart, Lung, and Blood [employer]. National Institutes of Health. 2001: NIH Publication No. 01-3305. 2. An International Atherosclerosis Society position paper: global recommendations for the management of dyslipidemia: executive summary, Atherosclerosis. 2014: 232(2):410-413. Performed By: #### CMP, LIPB #### [facility] [address] [place], [place] [address] PROGRESS Observed: 03/28/2018 Status: COMPLETED Source: [place] 10:04 AM [facility] REPOSITORY HNO ID: [id number] Author: Ryann Scott Service: (none) Author Type: Nurse Practitioner Type: Progress Notes Filed: 03/28/2018 12:43 PM Note Text: This is a 72 year old male who presents today with: Patient presents with: Medication Follow-up HISTORY OF PRESENT ILLNESS: Galen Byers is a 72 year old male. Patient presents with: Medication Follow-up Pt presents today as a new patient needing medication refills until establishment appt. Denies problems/concerns. He ran out of cholesterol medication recently. Reports he usually has hypertriglyceridemia. Refers that he had cataract surgery on the right eye last week. Having the left eye done tomorrow. Follows with endocrinology for hyperprolactinemia and hypothyroidism. He has an annual skin check by dermatology. He has a hx of a TURP and follows with urology. REVIEW OF SYSTEMS GENERAL: No weight loss, malaise or fevers/chills HEENT: Negative for frequent or significant headaches. Had right eye surgery last week, having left cataract removed tomorrow. NECK: Negative for lumps, goiter, pain and significant neck swelling RESPIRATORY: Negative for cough, hemoptysis, wheezing, dyspnea or shortness of breath CARDIOVASCULAR: Negative for chest pain, leg swelling, orthopnea, or palpitations GI: No nausea, vomiting, or diarrhea/constipation. No hematochezia/melena. No heartburn or reflux symptoms. Colonoscopy 2015 -- repeat 10- years. : No history of dysuria, frequency or incontinence MUSCULOSKELETAL: Negative for joint pain or swelling. SKIN: Negative for lesions, rash, and itching ENDOCRINE: Negative for cold or heat intolerance, polyuria, polydipsia and goiter NEURO: No history of headaches, syncope, paralysis, seizures or tremors PAST MEDICAL HISTORY: PAST MEDICAL HISTORY Diagnosis Date - Diverticulosis of colon (without mention of hemorrhage) - Erectile dysfunction 10/12/2013 - Family history of colon cancer 12/26/2015 - Hyperplasia of prostate - Hyperprolactinemia (HCC) - HYPERTROPHY PROSTATE WITH OBST 09/03/2005 - Hypothyroid - INGUINAL HERNIA, BILAT, RECURRENT W/O GANGRENE/OBSTRUCTION 09/01/2005 - Personal history of colonic polyps Colon polyps - Pituitary adenoma (HCC) - Pure hypercholesterolemia PAST SURGICAL HISTORY Procedure Laterality Date - CHOLECYSTECTOMY - COLONOSCOP W/ OR W/O BRSH SPEC 2004 Colonoscopy - COLONOSCOP W/ OR W/O BRSH SPEC 12/26/09 Repeat in 5 years (-2014) - KNEE ARTHROSCOPY/SURGERY - REPAIR ING HERNIA,5+Y/O,REDUCIBL Hernia repair, inguinal, recent laparoscopic, had 2 prior hernia repairs on LT - REPAIR OF NASAL SEPTUM Septoplasty - TRANSURETHRAL ELEC-SURG PROSTATECTOM 2010 TURP ALLERGIES [place] Other] [Other]; Pravachol [Pravastatin Sodium] MEDICATIONS Current Outpatient Prescriptions: Breeding [id number] 500 mg-500 mcg -1 mg-12.5 mg cap Take 500 mg by mouth. Cholecalciferol, Vitamin D3, (VITAMIN D) 1,000 unit cap Take 1,000 Units by mouth once daily. moxifloxacin (MOXEZA) 0.5 % viscous eye drops Use in eyes. ketorolac (ACULAR) 0.5 % ophthalmic solution 1 Drop four times daily. niacin (NIACIN) 500 mg tablet Take 500 mg by mouth daily with breakfast. lovastatin (MEVACOR) 10 mg tablet Take 1 tablet by mouth daily at bedtime. bromocriptine (PARLODEL) 2.5 mg tablet Take 0.5 tablets by mouth once daily. levothyroxine (SYNTHROID) 50 mcg tablet Take 1 tablet by mouth once daily. naproxen sodium (ALEVE) 220 mg tablet Take 1 tablet by mouth as needed. No current facility-administered medications for this visit. FAMILY HISTORY Problem Relation Age of Onset - Coronary Artery Disease Father - Colon Cancer Mother Social History Marital status: Spouse name: opal Years of education: Number of children: 5 Occupational History Occupation Employer Comment [employer] retired Social History Main Topics Smoking status: Former Smoker Packs/day: 0.00 Years: 0.00 Quit date: 09/03/1975 Smokeless tobacco: Never Used Comment: vary rare usage Alcohol use: Yes Comment: TWICE YEARLY Drug use: No Sexual activity: Yes Partners with: Female control/protection: Surgical Other Topics Concern Service No Blood Transfusions No Caffeine Concern No Occupational Exposure No Hobby Hazards No Sleep Concern No Stress Concern No Weight Concern No Special Diet No Back Care No Exercise Yes Comment:moderate Bike Helmet No Seat Belt Yes Self-Exams No EXAM: BP 126/68 (BP Site: Right Arm, BP Position: Sitting, BP Cuff Size: Regular Adult) Pulse (!) 58 Resp 12 Wt 84.8 kg (187 lb) BMI 28.57 kg/m? PHYSICAL EXAM: General Appearance: Well appearing, alert, in no acute distress, well-hydrated, well nourished.. Skin: Skin color, texture, turgor normal, no suspicious rashes or lesions. Head: Normocephalic, no masses, lesions, tenderness or abnormalities. Eyes: Anicteric sclera. Left eye currently dilated -- d/t eye drops. Extraocular movements are intact. . Ears: External ears normal, canals clear, Normal TMs bilaterally. Oropharynx: Lips, mucosa, and tongue normal, teeth and gums normal, oropharynx normal. Neck: Supple, no adenopathy; thyroid symmetric, normal size, no bruits. Lungs: Lungs clear to auscultation. No wheezing, rhonchi, rales. Heart: RRR without murmur, gallop, or rubs. No ectopy. Abdomen: Abdomen soft, non-tender. Bowel sounds normal. No masses, organomegaly. Extremities: No deformities, edema, skin discoloration, clubbing or cyanosis. Good capillary refill. . Neurologic: Gait normal. ASSESSMENT/PLAN: 1. Mixed hyperlipidemia - ICD9: 272.2, ICD10: E78.2 (primary diagnosis) - to be determined upon return of lab results - Check fasting lipid panel - COMP METABOLIC PANEL - LIPID PANEL BASIC Medication refilled. 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 3. Acquired hypothyroidism - ICD9: 244.9, ICD10: E03.9 - Follow per Endocrinology 4. Benign prostatic hyperplasia without lower urinary tract symptoms - ICD9: 600.00, ICD10: N40.0 Continue per urology. Discussed treatment plan and patient voices understanding. Patient's questions answered appropriately. Medications and potential side effects were discussed and patient voices understanding. Return to the office as scheduled or as needed for worsening/no improvement. Ryann Scott APRN.NETO CNOV Observed: 03/28/2018 Status: COMPLETED Source: [place] 9:40 AM [facility] REPOSITORY Office Visit (FAMPWS) GALEN BYERS ([id number]) 1945 M Date Time Provider Department 03/28/18 9:40 AM RYANN SCOTT (NETO) FAMPWS During your visit today, we recorded the following information about you: Pulse Respiration Blood pressure Weight 58/minute 12/minute 126/68 84.8 kg Ryann Scott APRN.CNP 03/28/2018 12:43 PM Signed This is a 72 year old male who presents today with: Patient presents with: Medication Follow-up HISTORY OF PRESENT ILLNESS: Galen Byers is a 72 year old male. Patient presents with: Medication Follow-up Pt presents today as a new patient needing medication refills until establishment appt. Denies problems/concerns. He ran out of cholesterol medication recently. Reports he usually has hypertriglyceridemia. Refers that he had cataract surgery on the right eye last week. Having the left eye done tomorrow. Follows with endocrinology for hyperprolactinemia and hypothyroidism. He has an annual skin check by dermatology. He has a hx of a TURP and follows with urology. REVIEW OF SYSTEMS GENERAL: No weight loss, malaise or fevers/chills HEENT: Negative for frequent or significant headaches. Had right eye surgery last week, having left cataract removed tomorrow. NECK: Negative for lumps, goiter, pain and significant neck swelling RESPIRATORY: Negative for cough, hemoptysis, wheezing, dyspnea or shortness of breath CARDIOVASCULAR: Negative for chest pain, leg swelling, orthopnea, or palpitations GI: No nausea, vomiting, or diarrhea/constipation. No hematochezia/melena. No heartburn or reflux symptoms. Colonoscopy 2015 -- repeat 10- years. : No history of dysuria, frequency or incontinence MUSCULOSKELETAL: Negative for joint pain or swelling. SKIN: Negative for lesions, rash, and itching ENDOCRINE: Negative for cold or heat intolerance, polyuria, polydipsia and goiter NEURO: No history of headaches, syncope, paralysis, seizures or tremors PAST MEDICAL HISTORY: PAST MEDICAL HISTORY Diagnosis Date - Diverticulosis of colon (without mention of hemorrhage) - Erectile dysfunction 10/12/2013 - Family history of colon cancer 12/26/2015 - Hyperplasia of prostate - Hyperprolactinemia (HCC) - HYPERTROPHY PROSTATE WITH OBST 09/03/2005 - Hypothyroid - INGUINAL HERNIA, BILAT, RECURRENT W/O GANGRENE/OBSTRUCTION 09/01/2005 - Personal history of colonic polyps Colon polyps - Pituitary adenoma (HCC) - Pure hypercholesterolemia PAST SURGICAL HISTORY Procedure Laterality Date - CHOLECYSTECTOMY - COLONOSCOP W/ OR W/O BRSH SPEC 2004 Colonoscopy - COLONOSCOP W/ OR W/O [facility] SPEC 12/26/09 Repeat in 5 years (-2014) - KNEE ARTHROSCOPY/SURGERY - REPAIR ING HERNIA,5+Y/O,REDUCIBL Hernia repair, inguinal, recent laparoscopic, had 2 prior hernia repairs on LT - REPAIR OF NASAL SEPTUM Septoplasty - TRANSURETHRAL ELEC-SURG PROSTATECTOM 2010 TURP ALLERGIES [place] Other] [Other]; Pravachol [Pravastatin Sodium] MEDICATIONS Current Outpatient Prescriptions: Breeding [id number] 500 mg-500 mcg -1 mg-12.5 mg cap Take 500 mg by mouth. Cholecalciferol, Vitamin D3, (VITAMIN D) 1,000 unit cap Take 1,000 Units by mouth once daily. moxifloxacin (MOXEZA) 0.5 % viscous eye drops Use in eyes. ketorolac (ACULAR) 0.5 % ophthalmic solution 1 Drop four times daily. niacin (NIACIN) 500 mg tablet Take 500 mg by mouth daily with breakfast. lovastatin (MEVACOR) 10 mg tablet Take 1 tablet by mouth daily at bedtime. bromocriptine (PARLODEL) 2.5 mg tablet Take 0.5 tablets by mouth once daily. levothyroxine (SYNTHROID) 50 mcg tablet Take 1 tablet by mouth once daily. naproxen sodium (ALEVE) 220 mg tablet Take 1 tablet by mouth as needed. No current facility-administered medications for this visit. FAMILY HISTORY Problem Relation Age of Onset - Coronary Artery Disease Father - Colon Cancer Mother Social History Marital status: Spouse name: opal Years of education: Number of children: 5 Occupational History Occupation Employer Comment [employer] retired Social History Main Topics Smoking status: Former Smoker Packs/day: 0.00 Years: 0.00 Quit date: 09/03/1975 Smokeless tobacco: Never Used Comment: vary rare usage Alcohol use: Yes Comment: TWICE YEARLY Drug use: No Sexual activity: Yes Partners with: Female control/protection: Surgical Other Topics Concern Service No Blood Transfusions No Caffeine Concern No Occupational Exposure No Hobby Hazards No Sleep Concern No Stress Concern No Weight Concern No Special Diet No Back Care No Exercise Yes Comment:moderate Bike Helmet No Seat Belt Yes Self-Exams No EXAM: BP 126/68 (BP Site: Right Arm, BP Position: Sitting, BP Cuff Size: Regular Adult) Pulse (!) 58 Resp 12 Wt 84.8 kg (187 lb) BMI 28.57 kg/m? PHYSICAL EXAM: General Appearance: Well appearing, alert, in no acute distress, well-hydrated, well nourished.. Skin: Skin color, texture, turgor normal, no suspicious rashes or lesions. Head: Normocephalic, no masses, lesions, tenderness or abnormalities. Eyes: Anicteric sclera. Left eye currently dilated -- d/t eye drops. Extraocular movements are intact. . Ears: External ears normal, canals clear, Normal TMs bilaterally. Oropharynx: Lips, mucosa, and tongue normal, teeth and gums normal, oropharynx normal. Neck: Supple, no adenopathy; thyroid symmetric, normal size, no bruits. Lungs: Lungs clear to auscultation. No wheezing, rhonchi, rales. Heart: RRR without murmur, gallop, or rubs. No ectopy. Abdomen: Abdomen soft, non-tender. Bowel sounds normal. No masses, organomegaly. Extremities: No deformities, edema, skin discoloration, clubbing or cyanosis. Good capillary refill. . Neurologic: Gait normal. ASSESSMENT/PLAN: 1. Mixed hyperlipidemia - ICD9: 272.2, ICD10: E78.2 (primary diagnosis) - to be determined upon return of lab results - Check fasting lipid panel - COMP METABOLIC PANEL - LIPID PANEL BASIC Medication refilled. 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 3. Acquired hypothyroidism - ICD9: 244.9, ICD10: E03.9 - Follow per Endocrinology 4. Benign prostatic hyperplasia without lower urinary tract symptoms - ICD9: 600.00, ICD10: N40.0 Continue per urology. Discussed treatment plan and patient voices understanding. Patient's questions answered appropriately. Medications and potential side effects were discussed and patient voices understanding. Return to the office as scheduled or as needed for worsening/no improvement. Ryann Scott APRN.NETO Scott APRN.CNP 03/28/2018 10:32 AM Signed 1. Come back for fasting labs. 2. Establish with Dr. Ramos as planned. 3. If you have problems between now and then, please give us a call. Referring Provider: SELF [200] Allergies As of Date: 03/28/2018 Noted Allergy Reaction [place]orelco Other] [Other] 04/13/2005 16 - Unknown PRAVACHOL (PRAVASTATIN SODIUM) 04/13/2005 Date Reviewed: 01/25/2018 Reviewed by: Suzi Eid Ma - Fully Assessed Reason for Visit: Medication Follow-up [270] Primary Visit Diagnosis:Mixed hyperlipidemia [E78.2] Other Visit Diagnoses:Prolactinoma [D35.2] Acquired hypothyroidism [E03.9] Benign prostatic hyperplasia without lower urinary tract symptoms [N40.0] Order(s):COMP METABOLIC PANEL [SQCMP] Order #: [id number] FUTURE LIPID PANEL BASIC [SQLIPB] Order #: [id number] FUTURE lovastatin (MEVACOR) 10 mg tabletTake 1 tablet by mouth daily at bedtime.Disp: 90 tabletRfl: 4 Prescriptions as of 03/28/2018 Sig: OMEGA 3 500 [id number]-[id number]-B12 50* Take 500 mg by mouth. CHOLECALCIFEROL (VITAMIN D3) * Take 1,000 Units by mouth onc* MOXIFLOXACIN 0.5 % VISCOUS EY* Use in eyes. KETOROLAC 0.5 % EYE DROPS 1 Drop four times daily. NIACIN 500 MG TABLET Take 500 mg by mouth daily wi* LOVASTATIN 10 MG TABLET Take 1 tablet by mouth daily * BROMOCRIPTINE 2.5 MG TABLET Take 0.5 tablets by mouth onc* LEVOTHYROXINE 50 MCG TABLET Take 1 tablet by mouth once d* NAPROXEN SODIUM 220 MG TABLET Take 1 tablet by mouth as nee* More... Problem List As Of Date 03/28/2018 Noted Resolved Mixed hyperlipidemia [E78.2] INVALID FOR* More... 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 Erectile dysfunction [N52.9] INVALID FOR*12/21/2016 Hypothyroidism [E03.9] INVALID FOR* Family history of colon cancer [Z80.0] INVALID FOR*12/21/2016 Rectal bleeding [K62.5] INVALID FOR*12/21/2016 Hyperprolactinemia (HCC) [E22.1] INVALID FOR* Benign prostatic hyperplasia without lower urin*INVALID FOR* Other instructions from your clinician: 1. Come back for fasting labs. 2. Establish with Dr. Horace as planned. 3. If you have problems between now and then, please give us a call. Prescriptions ordered this encounter Disp Refills Start End LOVASTATIN 10 MG TABLET 90 t* 4 03/28/2018 Route: ORAL Sig: Take 1 tablet by mouth daily at bedtime. Medications Discontinued During This Encounter benzonatate (TESSALON PERLE) 100 mg * 30 c* 0 10/18/2017 03/28/2018 Route: ORAL Sig: Take 1 capsule by mouth three times daily as needed. Patient not taking: Reported on 01/25/2018 Disc: Course of therapy completed lovastatin 10 mg tablet 90 t* 4 03/29/2014 03/28/2018 Route: ORAL Sig: Take 1 tablet by mouth daily at bedtime. Disc: Reason for discontinue is not on file. Encounter Status:Closed by RYANN SCOTT CNP on 03/28/18 FREE T4 Collected: 01/26/2018 Status: F Source: [place] 9:11 AM [facility] REPOSITORY TYPE CODE TESTS RESULT OUT OF RANGE REFERENCE UNITS LAB FT4 0.9-1.7 ng/dL Free T4 1.1 Performed By: #### FT4, PROL, FSH, LH, TSH, FTESTO #### [facility] [address] [address] PROLACTIN Collected: 01/26/2018 Status: F Source: [place] 9:11 AM [facility] REPOSITORY TYPE CODE TESTS RESULT OUT OF REFERENCE UNITS RANGE LAB PROL 4.0-15.2 ng/mL Low Prolactin 2.3 Performed By: #### FT4, PROL, FSH, LH, TSH, FTESTO #### [facility] [address] [address] FSH Collected: 01/26/2018 Status: F Source: [place] 9:11 AM [facility] REPOSITORY TYPE CODE TESTS RESULT OUT OF RANGE REFERENCE UNITS LAB FSH 1.5-12.4 mU/mL FSH 4.0 Performed By: #### FT4, PROL, FSH, LH, TSH, FTESTO #### [facility] [address] [place], [place] [address] LH Collected: 01/26/2018 Status: F Source: [facility] 9:11 AM [facility] REPOSITORY TYPE CODE TESTS RESULT OUT OF RANGE REFERENCE UNITS LAB LH 1.8-10.8 mU/mL LH 5.1 Performed By: #### FT4, PROL, FSH, LH, TSH, FTESTO #### [facility] [address] [id number] TSH Collected: 01/26/2018 Status: F Source: [place] 9:11 AM [facility] REPOSITORY TYPE CODE TESTS RESULT OUT OF RANGE REFERENCE UNITS LAB TSH 0.400-5.500 uU/mL TSH 2.910 Performed By: #### FT4, PROL, FSH, LH, TSH, FTESTO #### [facility] [address] [address] FREE TESTOSTERONE Collected: 01/26/2018 Status: F Source: [place] 9:11 AM [facility] REPOSITORY TYPE CODE TESTS RESULT OUT OF REFERENCE UNITS RANGE LAB TESTO 193-824 ng/dL Testosterone 398 Result Comment: A testosterone level in the 193-320 ng/dL range with associated clinical symptoms is considered low and may indicate hypogonadism (from NEJM 2010 363:123-135). Results >320 ng/dL are considered normal. LAB FREE 1.4-3.2 % Free Testosterone % 2.1 LAB FRTSTO 41.7-180.2 pg/mL Free Testosterone 83.3 Result Comment: This test was developed and its performance characteristics determined by [facility]'s Mitch Leanne [facility] [place] [facility] It has not been cleared or approved by the FDA. -[facility] is regulated under CLIA as qualified to perform high-complexity testing. This test is used for clinical purposes. It should not be regarded as investigational or for research. Performed By: #### FT4, PROL, FSH, LH, TSH, FTESTO #### [facility] [address], [place] [address] PROGRESS Observed: 01/25/2018 Status: COMPLETED Source: [place] 3:06 PM [facility] REPOSITORY HNO ID: [id number] Author: Jodi Ocampo Service: (none) Author Type: Physician Type: Progress Notes Filed: 02/24/2018 9:11 PM Note Text: Last visit: 12/21/2016 Initial Pituitary Patient Assessment Form Galen Byers is a 72 year old male here today for follow up pituitary assessment Current Outpatient Prescriptions: levothyroxine (SYNTHROID) 50 mcg tablet Take 1 tablet by mouth once daily. bromocriptine (PARLODEL) 2.5 mg tablet Take 0.5 tablets by mouth once daily. lovastatin 10 mg tablet Take 1 tablet by mouth daily at bedtime. naproxen sodium (ALEVE) 220 mg tablet Take 1 tablet by mouth as needed. benzonatate (TESSALON PERLE) 100 mg capsule Take 1 capsule by mouth three times daily as needed. (Patient not taking: Reported on 01/25/2018 ) No current facility-administered medications for this visit. PAST MEDICAL HISTORY Diagnosis Date - Diverticulosis of colon (without mention of hemorrhage) - Erectile dysfunction 10/12/2013 - Family history of colon cancer 12/26/2015 - Hyperplasia of prostate - HYPERTROPHY PROSTATE WITH OBST 09/03/2005 - INGUINAL HERNIA, BILAT, RECURRENT W/O GANGRENE/OBSTRUCTION 09/01/2005 - Personal history of colonic polyps Colon polyps - Pure hypercholesterolemia PAST SURGICAL HISTORY Procedure Laterality Date - CHOLECYSTECTOMY - COLONOSCOP W/ OR W/O BRS SPEC 2004 Colonoscopy - COLONOSCOP W/ OR W/O BRSH SPEC 12/26/09 Repeat in 5 years (-2014) - KNEE ARTHROSCOPY/SURGERY - REPAIR ING HERNIA,5+Y/O,REDUCIBL Hernia repair, inguinal, recent laparoscopic, had 2 prior hernia repairs on LT - REPAIR OF NASAL SEPTUM Septoplasty - TRANSURETHRAL ELEC-SURG PROSTATECTOM 2009 TURP FAMILY HISTORY Problem Relation Age of Onset - Coronary Artery Disease Father - Colon Cancer Mother History of Present Illness: Follow-up 72 year-old male, patient of Dr. Mehdi Avila, with history of pituitary adenoma and hypothyroidism. He initially had two adenomata; one has resolved, one persists. He tried to stop bromocriptine in 2011, but prolactin level violette to > 100. Notes no side effects from the bromocriptine. No new headaches. Notes no visual changes. Had visual mccrary test done last week, says was unremarkable. January 25, 2018: He had an MRI in [place] 2017 after his last visit, and didn't show any pituitary adenoma, so he was told to stop taking Parlodel, and after 10 days his prolactin level went up to 73.9 from 4, and suggested to restart the parlodel. He also taking LT4 for low thyroid. Review of Systems: GENERAL: Fatigue yes, may be related to age Malaise no Weight stable / unchanged HEAD AND NECK: Headaches No, Visual Complaints Yes, some blurriness from cataract and Dizziness No CVS: Negative PULMONARY: Negative, had flue this winter but now OK GI: Negative system: Polydispsia Yes, Nocturia NO, Polyuria NO and Ice cravings NO Sex / Menstruation / OB Hx: Libido normal, Impotence: yes, had trup, Hot Flashes: no, Puberty:normal and Hx of infertility no (have 5 kids) MUSCULOSKEL: Normal OTHER: Galactorrhea: no Mood changes: no Diaphoresis: No Easy Bruising No PAST MEDICAL HISTORY Diagnosis Date - Diverticulosis of colon (without mention of hemorrhage) - Erectile dysfunction 10/12/2013 - Family history of colon cancer 12/26/2015 - Hyperplasia of prostate - HYPERTROPHY PROSTATE WITH OBST 09/03/2005 - INGUINAL HERNIA, BILAT, RECURRENT W/O GANGRENE/OBSTRUCTION 09/01/2005 - Personal history of colonic polyps Colon polyps - Pure hypercholesterolemia PAST SURGICAL HISTORY Procedure Laterality Date - CHOLECYSTECTOMY - COLONOSCOP W/ OR W/O [facility] SPEC 2004 Colonoscopy - COLONOSCOP W/ OR W/O [facility] SPEC 12/26/09 Repeat in 5 years (-2014) - KNEE ARTHROSCOPY/SURGERY - REPAIR ING HERNIA,5+Y/O,REDUCIBL Hernia repair, inguinal, recent laparoscopic, had 2 prior hernia repairs on LT - REPAIR OF NASAL SEPTUM Septoplasty - TRANSURETHRAL ELEC-SURG PROSTATECTOM 2010 TURP FAMILY HISTORY Problem Relation Age of Onset - Coronary Artery Disease Father - Colon Cancer Mother Social History: Social History Marital status: Spouse name: opal Years of education: Number of children: 5 Occupational History Occupation Employer Comment [employer] retired Social History Main Topics Smoking status: Former Smoker Packs/day: 0.00 Years: 0.00 Quit date: 09/03/1975 Smokeless status: Never Used Comment: vary rare usage Alcohol use: Yes Comment: TWICE YEARLY Drug use: No Sexual activity: Yes Partners with: Female control/protection: Surgical Other Topics Concern Service No Blood Transfusions No Caffeine Concern No Occupational Exposure No Hobby Hazards No Sleep Concern No Stress Concern No Weight Concern No Special Diet No Back Care No Exercise Yes Comment:moderate Bike Helmet No Seat Belt Yes Self-Exams No Previous Pituitary Surgery: No Previous Radiotherapy: No Lab Value Units Date High Low TSH 2.970 uU/mL 12/23/2016 5.500 0.400 T4 No results within date range. FTI No results within date range. T3 No results within date range. FREET3 No results within date range. FREET4 1.1 ng/dL 12/23/2016 1.7 0.9 FSH No results within date range. LH No results within date range. TESTFREE No results within date range. TESTOST No results within date range. PROL 73.9 ng/mL 02/01/2017 15.2 4.0 PROL 4.0 ng/mL 12/23/2016 15.2 4.0 ALPSUB No results within date range. ILGF1 No results within date range. GH No results within date range. DHEAS No results within date range. ACTH No results within date range. COR0 No results within date range. COR30 No results within date range. COR60 No results within date range. Lab Value Units Date High Low ALT No results within date range. PHYSICAL EXAM BP 131/80 Pulse 58 Wt 186 lb 12.8 oz (84.7kg) SpO2 98% Body mass index is 28.54 kg/m?. HEADANDNECK Visual Field Defect no, Diplopia no, Cranial Nerve Palsy no, Pupils Symmetric Yes, Light Reflex Normal, Coarse Facial Features No, Acne No, Leon Face No and Thryoid Normal size, SKIN Normal, NEURO Normal, no focal neurological deficit, MUSCULOSKELETAL Normal, CVS Normal, PULMONARY Normal, ABDOMEN Normal, GYNECOMASTIA no, BREAST DISCHARGE no and OBESITY Yes, Central Previous MRI/CT Scan: Yes, Date and Description: 01/11/2017 ?5:52 PM - Interface, Results In Impression IMPRESSION: Previously identified questionable focus of hypoenhancement involving the left aspect of the pituitary gland is not clearly identified on the current exam. Yeast Distiller: JESSY ? Transcribe Date/Time: Jan 11 2017 ?5:41P Dictated by : LYNN PAL MD RELEVENT LABS: Component Latest Ref Rng AND Units 12/23/2016 02/01/2017 Prolactin 4.0 - 15.2 ng/mL 4.0 73.9 (H) TSH 0.400 - 5.500 uU/mL 2.970 Free T4 0.9 - 1.7 ng/dL 1.1 ASSESSMENT/PLAN: (E22.1) Hyperprolactinemia (HCC) (primary encounter diagnosis) Comment: pathophysiology AND treatment options discussed. Monitor prolactin level. Treat as needed. Currently stable on perlodel. Plan: PROLACTIN BLD (D35.2) Pituitary microadenoma (HCC) Comment: pathophysiology AND treatment options discussed. Check anti-pituitary hormone levels. Plan: TSH BLD, T4 FREE/FREE THYROX, PROLACTIN BLD, TESTOSTERONE, FREE AND TOTAL, LUTEINIZING HORMONE, FSH BLD (E03.9) Acquired hypothyroidism Comment: pathophysiology AND treatment options discussed. On LT4. Stable. continue current Rx. check level AND Rx as needed. TSH may not be reliable. Plan: TSH BLD, T4 FREE/FREE THYROX (E78.2) Mixed hyperlipidemia Comment: on statin. clinically stable on current Rx. Plan: continue current Rx. (E66.3) Over weight Comment: pathophysiology AND treatment options discussed Plan: Diet, exercise and food supplement discussed. (E29.1) Hypogonadism in male Comment: pathophysiology AND treatment options discussed. Check pituitary-gonadal axis. Plan: PROLACTIN BLD, TESTOSTERONE, FREE AND TOTAL, LUTEINIZING HORMONE, FSH BLD Jodi Ocampo MD January 25, 2018 CNOV Observed: 01/25/2018 Status: COMPLETED Source: [place] 2:25 PM [facility] REPOSITORY Office Visit (FIORELLA) GALEN BYERS ([id number]) 1945 M Date Time Provider Department 01/25/18 2:25 PM JODI OCAMPO During your visit today, we recorded the following information about you: Pulse Blood pressure Weight 58/minute 131/80 84.7 kg Jodi Ocampo MD 02/24/2018 9:11 PM Signed Last visit: 12/21/2016 Initial Pituitary Patient Assessment Form Galen Byers is a 72 year old male here today for follow up pituitary assessment Current Outpatient Prescriptions: levothyroxine (SYNTHROID) 50 mcg tablet Take 1 tablet by mouth once daily. bromocriptine (PARLODEL) 2.5 mg tablet Take 0.5 tablets by mouth once daily. lovastatin 10 mg tablet Take 1 tablet by mouth daily at bedtime. naproxen sodium (ALEVE) 220 mg tablet Take 1 tablet by mouth as needed. benzonatate (TESSALON PERLE) 100 mg capsule Take 1 capsule by mouth three times daily as needed. (Patient not taking: Reported on 01/25/2018 ) No current facility-administered medications for this visit. PAST MEDICAL HISTORY Diagnosis Date - Diverticulosis of colon (without mention of hemorrhage) - Erectile dysfunction 10/12/2013 - Family history of colon cancer 12/26/2015 - Hyperplasia of prostate - HYPERTROPHY PROSTATE WITH OBST 09/03/2005 - INGUINAL HERNIA, BILAT, RECURRENT W/O GANGRENE/OBSTRUCTION 09/01/2005 - Personal history of colonic polyps Colon polyps - Pure hypercholesterolemia PAST SURGICAL HISTORY Procedure Laterality Date - CHOLECYSTECTOMY - COLONOSCOP W/ OR W/O [facility] SPEC 2004 Colonoscopy - COLONOSCOP W/ OR W/O [facility] SPEC 12/26/09 Repeat in 5 years (-2014) - KNEE ARTHROSCOPY/SURGERY - REPAIR ING HERNIA,5+Y/O,REDUCIBL Hernia repair, inguinal, recent laparoscopic, had 2 prior hernia repairs on LT - REPAIR OF NASAL SEPTUM Septoplasty - TRANSURETHRAL ELEC-SURG PROSTATECTOM 2009 TURP FAMILY HISTORY Problem Relation Age of Onset - Coronary Artery Disease Father - Colon Cancer Mother History of Present Illness: Follow-up 72 year-old male, patient of Dr. Mehdi Avila, with history of pituitary adenoma and hypothyroidism. He initially had two adenomata; one has resolved, one persists. He tried to stop bromocriptine in 2011, but prolactin level violette to > 100. Notes no side effects from the bromocriptine. No new headaches. Notes no visual changes. Had visual mccrary test done last week, says was unremarkable. January 25, 2018: He had an MRI in [place] 2017 after his last visit, and didn't show any pituitary adenoma, so he was told to stop taking Parlodel, and after 10 days his prolactin level went up to 73.9 from 4, and suggested to restart the parlodel. He also taking LT4 for low thyroid. Review of Systems: GENERAL: Fatigue yes, may be related to age Malaise no Weight stable / unchanged HEAD AND NECK: Headaches No, Visual Complaints Yes, some blurriness from cataract and Dizziness No CVS: Negative PULMONARY: Negative, had flue this winter but now OK GI: Negative system: Polydispsia Yes, Nocturia NO, Polyuria NO and Ice cravings NO Sex / Menstruation / OB Hx: Libido normal, Impotence: yes, had trup, Hot Flashes: no, Puberty:normal and Hx of infertility no (have 5 kids) MUSCULOSKEL: Normal OTHER: Galactorrhea: no Mood changes: no Diaphoresis: No Easy Bruising No PAST MEDICAL HISTORY Diagnosis Date - Diverticulosis of colon (without mention of hemorrhage) - Erectile dysfunction 10/12/2013 - Family history of colon cancer 12/26/2015 - Hyperplasia of prostate - HYPERTROPHY PROSTATE WITH OBST 09/03/2005 - INGUINAL HERNIA, BILAT, RECURRENT W/O GANGRENE/OBSTRUCTION 09/01/2005 - Personal history of colonic polyps Colon polyps - Pure hypercholesterolemia PAST SURGICAL HISTORY Procedure Laterality Date - CHOLECYSTECTOMY - COLONOSCOP W/ OR W/O BRSH SPEC 2004 Colonoscopy - COLONOSCOP W/ OR W/O BRSH SPEC 12/26/09 Repeat in 5 years (-2014) - KNEE ARTHROSCOPY/SURGERY - REPAIR ING HERNIA,5+Y/O,REDUCIBL Hernia repair, inguinal, recent laparoscopic, had 2 prior hernia repairs on LT - REPAIR OF NASAL SEPTUM Septoplasty - TRANSURETHRAL ELEC-SURG PROSTATECTOM 2010 TURP FAMILY HISTORY Problem Relation Age of Onset - Coronary Artery Disease Father - Colon Cancer Mother Social History: Social History Marital status: Spouse name: opal Years of education: Number of children: 5 Occupational History Occupation Employer Comment [employer] retired Social History Main Topics Smoking status: Former Smoker Packs/day: 0.00 Years: 0.00 Quit date: 09/03/1975 Smokeless status: Never Used Comment: vary rare usage Alcohol use: Yes Comment: TWICE YEARLY Drug use: No Sexual activity: Yes Partners with: Female control/protection: Surgical Other Topics Concern Service No Blood Transfusions No Caffeine Concern No Occupational Exposure No Hobby Hazards No Sleep Concern No Stress Concern No Weight Concern No Special Diet No Back Care No Exercise Yes Comment:moderate Bike Helmet No Seat Belt Yes Self-Exams No Previous Pituitary Surgery: No Previous Radiotherapy: No Lab Value Units Date High Low TSH 2.970 uU/mL 12/23/2016 5.500 0.400 T4 No results within date range. FTI No results within date range. T3 No results within date range. FREET3 No results within date range. FREET4 1.1 ng/dL 12/23/2016 1.7 0.9 FSH No results within date range. LH No results within date range. TESTFREE No results within date range. TESTOST No results within date range. PROL 73.9 ng/mL 02/01/2017 15.2 4.0 PROL 4.0 ng/mL 12/23/2016 15.2 4.0 ALPSUB No results within date range. ILGF1 No results within date range. GH No results within date range. DHEAS No results within date range. ACTH No results within date range. COR0 No results within date range. COR30 No results within date range. COR60 No results within date range. Lab Value Units Date High Low ALT No results within date range. PHYSICAL EXAM BP 131/80 Pulse 58 Wt 186 lb 12.8 oz (84.7kg) SpO2 98% Body mass index is 28.54 kg/m?. HEADANDNECK Visual Field Defect no, Diplopia no, Cranial Nerve Palsy no, Pupils Symmetric Yes, Light Reflex Normal, Coarse Facial Features No, Acne No, Leon Face No and Thryoid Normal size, SKIN Normal, NEURO Normal, no focal neurological deficit, MUSCULOSKELETAL Normal, CVS Normal, PULMONARY Normal, ABDOMEN Normal, GYNECOMASTIA no, BREAST DISCHARGE no and OBESITY Yes, Central Previous MRI/CT Scan: Yes, Date and Description: 01/11/2017 ?5:52 PM - Interface, Results In Impression IMPRESSION: Previously identified questionable focus of hypoenhancement involving the left aspect of the pituitary gland is not clearly identified on the current exam. Yeast Distiller: JESSY ? Transcribe Date/Time: Jan 11 2017 ?5:41P Dictated by : LYNN PAL MD RELEVENT LABS: Component Latest Ref Rng AND Units 12/23/2016 02/01/2017 Prolactin 4.0 - 15.2 ng/mL 4.0 73.9 (H) TSH 0.400 - 5.500 uU/mL 2.970 Free T4 0.9 - 1.7 ng/dL 1.1 ASSESSMENT/PLAN: (E22.1) Hyperprolactinemia (HCC) (primary encounter diagnosis) Comment: pathophysiology AND treatment options discussed. Monitor prolactin level. Treat as needed. Currently stable on perlodel. Plan: PROLACTIN BLD (D35.2) Pituitary microadenoma (HCC) Comment: pathophysiology AND treatment options discussed. Check anti-pituitary hormone levels. Plan: TSH BLD, T4 FREE/FREE THYROX, PROLACTIN BLD, TESTOSTERONE, FREE AND TOTAL, LUTEINIZING HORMONE, FSH BLD (E03.9) Acquired hypothyroidism Comment: pathophysiology AND treatment options discussed. On LT4. Stable. continue current Rx. check level AND Rx as needed. TSH may not be reliable. Plan: TSH BLD, T4 FREE/FREE THYROX (E78.2) Mixed hyperlipidemia Comment: on statin. clinically stable on current Rx. Plan: continue current Rx. (E66.3) Over weight Comment: pathophysiology AND treatment options discussed Plan: Diet, exercise and food supplement discussed. (E29.1) Hypogonadism in male Comment: pathophysiology AND treatment options discussed. Check pituitary-gonadal axis. Plan: PROLACTIN BLD, TESTOSTERONE, FREE AND TOTAL, LUTEINIZING HORMONE, FSH BLD Jodi Ocampo MD January 25, 2018 Referring Provider: IVANA MORATAYA [[id number]] Allergies As of Date: 01/25/2018 Noted Allergy Reaction Lorelco Other] [Other] 04/13/2005 16 - Unknown PRAVACHOL (PRAVASTATIN SODIUM) 04/13/2005 Date Reviewed: 01/25/2018 Reviewed by: Suzi Eid Ma - Fully Assessed Reason for Visit: prolactinoma [Other] Thyroid Problem [110] Reason For Visit History Recorded Primary Visit Diagnosis:Hyperprolactinemia (HCC) [E22.1] Other Visit Diagnoses:Pituitary microadenoma (HCC) [D35.2] Acquired hypothyroidism [E03.9] Mixed hyperlipidemia [E78.2] Over weight [E66.3] Hypogonadism in male [E29.1] Order(s):TSH BLD [SQTSH] Order #: [id number] FUTURE T4 FREE/FREE THYROX [SQFT4] Order #: [id number] FUTURE PROLACTIN BLD [SQPROL] Order #: [id number] FUTURE TESTOSTERONE, FREE AND TOTAL [SQFTESTO] Order #: [id number] FUTURE LUTEINIZING HORMONE [SQLH] Order #: [id number] FUTURE FSH BLD [SQFS] Order #: [id number] FUTURE Prescriptions as of 01/25/2018 Sig: LEVOTHYROXINE 50 MCG TABLET Take 1 tablet by mouth once d* BROMOCRIPTINE 2.5 MG TABLET Take 0.5 tablets by mouth onc* LOVASTATIN 10 MG TABLET Take 1 tablet by mouth daily * NAPROXEN SODIUM 220 MG TABLET Take 1 tablet by mouth as nee* BENZONATATE 100 MG CAPSULE Take 1 capsule by mouth three* Patient not taking: Reported on 01/25/2018 More... Problem List As Of Date 01/25/2018 Noted Resolved Mixed hyperlipidemia [E78.2] INVALID FOR* More... 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 Erectile dysfunction [N52.9] INVALID FOR*12/21/2016 Hypothyroidism [E03.9] INVALID FOR* Family history of colon cancer [Z80.0] INVALID FOR*12/21/2016 Rectal bleeding [K62.5] INVALID FOR*12/21/2016 Hyperprolactinemia (HCC) [E22.1] INVALID FOR* Disposition: Return in about 1 year (around 01/25/2019). Follow-up and Disposition History Recorded Encounter Status:Closed by JODI OCAMPO MD on 02/24/18 XR CHEST 2V FRONTAL/LAT Observed: 10/18/2017 Status: F Source: [place] 3:12 PM [facility] REPOSITORY * * *Final Report* * * DATE OF EXAM: Oct 18 2017 3:12PM WOX [id number] - XR CHEST 2V FRONTAL/LAT / PROCEDURE REASON: Cough * * * * Physician Interpretation * * * * EXAMINATION: CHEST RADIOGRAPH (2 VIEW FRONTAL and LATERAL) Clinical History: Cough M: XC2_3 Comparison: None RESULT: Lines, tubes, and devices: None. Lungs and pleura: No consolidation. No lung mass. No pleural effusion. Cardiomediastinal silhouette: Normal cardiomediastinal silhouette. Other: The spine shows degenerative changes. Compression deformity/wedge shaped deformity in one of the thoracolumbar spine vertebral bodies. IMPRESSION: No acute radiographic abnormality. Yeast Distiller: PSCB Transcribe Date/Time: Oct 18 2017 3:32P Dictated by : BRAULIO VITALE MD This examination was interpreted and the report reviewed and electronically signed by: BRAULIO VITALE MD on Oct 18 2017 3:33PM EST [id number] PROGRESS Observed: 10/18/2017 Status: COMPLETED Source: [place] 3:08 PM [facility] REPOSITORY HNO ID: [id number] Author: Lucila Garcia (Tech) Service: (none) Author Type: Upstairs Maid Type: Progress Notes Filed: 10/18/2017 3:12 PM Note Text: Radiology Service Progress Note PATIENT NAME: Galen Byers DATE OF SERVICE: October 18, 2017 TIME: 3:08 PM PATIENT IDENTITY VERIFICATION COMPLETED USING TWO (2) METHODS: Patient confirmed name verbally and Date of . PATIENT GENDER DATA: Male PATIENT RELEVANT IMPLANT DATA REVIEWED: Not Applicable RADIOLOGY DEPARTMENT: General X-ray: Exam(s) Completed: Chest X-Ray PERIPHERAL IV DATA: Not applicable SIGNED BY: Lucila Wheatley October 18, 2017 3:08 PM PROGRESS Observed: 10/18/2017 Status: COMPLETED Source: [place] 2:51 PM [facility] REPOSITORY HNO ID: [id number] Author: Amna Capellan Service: (none) Author Type: Nurse Practitioner Type: Progress Notes Filed: 10/18/2017 3:54 PM Note Text: Patient is a 71 year old male presenting with cough. The history is provided by the patient. No supervisor modern languages was used. Cough Pertinent negatives include no chest pain, no chills, no ear pain, no headaches, no sore throat, no myalgias, no shortness of breath and no wheezing. HPI Galen Byers is a 71 year old male who presents today for CC of cough and congestion after he had the flu This started 4-5 weeks ago. He is also having a productive cough, white to yellow Symptoms are worse first thing in the morning. He has tried no treatment or medications Risk factors flu in Decemeber PMH not significant BP 136/72 Pulse 70 Temp 36.1 ?C (96.9 ?F) (Tympanic) Resp 16 Wt 84.4 kg (186 lb) SpO2 97% BMI 28.42 kg/m2 ALLERGIES Allergen Reactions - Lorelco Other] [Oth* Unknown - Pravachol [Pravasta* ACTIVE PROBLEM LIST Mixed Hyperlipidemia Prolactinoma Hypothyroidism Family History Problem Relation Age of Onset - Coronary Artery Disease Father - Colon Cancer Mother Social History Marital status: Spouse name: opal Years of education: Number of children: 5 Occupational History Occupation Employer Comment [employer] retired Social History Main Topics Smoking status: Former Smoker Packs/day: 0.00 Years: 0.00 Quit date: 09/03/1975 Smokeless status: Never Used Comment: vary rare usage Alcohol use: Yes Comment: TWICE YEARLY Drug use: No Sexual activity: Yes Partners with: Female control/protection: Surgical Other Topics Concern Service No Blood Transfusions No Caffeine Concern No Occupational Exposure No Hobby Hazards No Sleep Concern No Stress Concern No Weight Concern No Special Diet No Back Care No Exercise Yes Comment:moderate Bike Helmet No Seat Belt Yes Self-Exams No Review of Systems Constitutional: Negative. Negative for chills, fever and malaise/fatigue. HENT: Negative for congestion, ear pain, sinus pain and sore throat. Respiratory: Positive for cough and sputum production. Negative for shortness of breath and wheezing. Cardiovascular: Negative for chest pain. Musculoskeletal: Negative for myalgias. Skin: Negative for rash. Neurological: Negative for headaches. Physical Exam Constitutional: He is well-developed, well-nourished, and in no distress. HENT: Head: Normocephalic and atraumatic. Right Ear: Tympanic membrane, external ear and ear canal normal. Tympanic membrane is not injected, not erythematous, not retracted and not bulging. No middle ear effusion. Left Ear: Tympanic membrane, external ear and ear canal normal. Tympanic membrane is not injected, not erythematous, not retracted and not bulging. No middle ear effusion. Nose: Mucosal edema and rhinorrhea present. Right sinus exhibits no maxillary sinus tenderness and no frontal sinus tenderness. Left sinus exhibits no maxillary sinus tenderness and no frontal sinus tenderness. Mouth/Throat: Uvula is midline and mucous membranes are normal. No oropharyngeal exudate, posterior oropharyngeal edema, posterior oropharyngeal erythema or tonsillar abscesses. Clear PND Eyes: Conjunctivae and EOM are normal. Pupils are equal, round, and reactive to light. Neck: Normal range of motion. Cardiovascular: Normal rate, regular rhythm and normal heart sounds. Pulmonary/Chest: Effort normal and breath sounds normal. No respiratory distress. He has no decreased breath sounds. He has no wheezes. He has no rhonchi. He has no rales. A dry hacking cough was noted during this encounter. Talking in full sentences. Handling secretions without drooling. Lips and nailbeds are pink without cyanosis. Lymphadenopathy: Head (right side): No submental, no submandibular, no tonsillar, no preauricular and no posterior auricular adenopathy present. Head (left side): No submental, no submandibular, no tonsillar, no preauricular and no posterior auricular adenopathy present. He has no cervical adenopathy. Right cervical: No posterior cervical adenopathy present. Left cervical: No posterior cervical adenopathy present. Right: No supraclavicular adenopathy present. Left: No supraclavicular adenopathy present. Skin: Skin is warm and dry. Psychiatric: Affect normal. Nursing note and vitals reviewed. ASSESSMENT/PLAN: 1. Cough - ICD9: 786.2, ICD10: R05 XR is negative Tessalon Perles as prescribed for coughing, do not combine this with other cough and cold medications - XR CHEST 2V FRONTAL/LAT - interpreted by BRAULIO VITALE MD IMPRESSION: No acute radiographic abnormality Diagnosis and treatment plan were discussed and questions were answered to the patient's satisfaction. Pt acknowledged understanding of concepts and follow up plan. Specific signs and symptoms that would indicate the need for higher level of care were discussed in detail warranting prompt ER evaluation. Amna Capellan CNP CNOV Observed: 10/18/2017 Status: COMPLETED Source: [place] 2:45 PM [facility] REPOSITORY Office Visit ([facility]) GALEN BYERS ([id number]) 1945 M Date Time Provider Department 10/18/17 2:45 PM AMNA CAPELLAN) [facility] During your visit today, we recorded the following information about you: Temperature Pulse Respiration Blood pressure 96.9 degrees 70/minute 16/minute 136/72 Weight 84.4 kg Amna Capellan CNP 10/18/2017 3:54 PM Signed Patient is a 71 year old male presenting with cough. The history is provided by the patient. No supervisor modern languages was used. Cough Pertinent negatives include no chest pain, no chills, no ear pain, no headaches, no sore throat, no myalgias, no shortness of breath and no wheezing. HPI Galen Byers is a 71 year old male who presents today for CC of cough and congestion after he had the flu This started 4-5 weeks ago. He is also having a productive cough, white to yellow Symptoms are worse first thing in the morning. He has tried no treatment or medications Risk factors flu in Decemeber PMH not significant BP 136/72 Pulse 70 Temp 36.1 ?C (96.9 ?F) (Tympanic) Resp 16 Wt 84.4 kg (186 lb) SpO2 97% BMI 28.42 kg/m2 ALLERGIES Allergen Reactions - Lorelco Other] [Oth* Unknown - Pravachol [Pravasta* ACTIVE PROBLEM LIST Mixed Hyperlipidemia Prolactinoma Hypothyroidism Family History Problem Relation Age of Onset - Coronary Artery Disease Father - Colon Cancer Mother Social History Marital status: Spouse name: opal Years of education: Number of children: 5 Occupational History Occupation Employer Comment [employer] retired Social History Main Topics Smoking status: Former Smoker Packs/day: 0.00 Years: 0.00 Quit date: 09/03/1975 Smokeless status: Never Used Comment: vary rare usage Alcohol use: Yes Comment: TWICE YEARLY Drug use: No Sexual activity: Yes Partners with: Female control/protection: Surgical Other Topics Concern Service No Blood Transfusions No Caffeine Concern No Occupational Exposure No Hobby Hazards No Sleep Concern No Stress Concern No Weight Concern No Special Diet No Back Care No Exercise Yes Comment:moderate Bike Helmet No Seat Belt Yes Self-Exams No Review of Systems Constitutional: Negative. Negative for chills, fever and malaise/fatigue. HENT: Negative for congestion, ear pain, sinus pain and sore throat. Respiratory: Positive for cough and sputum production. Negative for shortness of breath and wheezing. Cardiovascular: Negative for chest pain. Musculoskeletal: Negative for myalgias. Skin: Negative for rash. Neurological: Negative for headaches. Physical Exam Constitutional: He is well-developed, well-nourished, and in no distress. HENT: Head: Normocephalic and atraumatic. Right Ear: Tympanic membrane, external ear and ear canal normal. Tympanic membrane is not injected, not erythematous, not retracted and not bulging. No middle ear effusion. Left Ear: Tympanic membrane, external ear and ear canal normal. Tympanic membrane is not injected, not erythematous, not retracted and not bulging. No middle ear effusion. Nose: Mucosal edema and rhinorrhea present. Right sinus exhibits no maxillary sinus tenderness and no frontal sinus tenderness. Left sinus exhibits no maxillary sinus tenderness and no frontal sinus tenderness. Mouth/Throat: Uvula is midline and mucous membranes are normal. No oropharyngeal exudate, posterior oropharyngeal edema, posterior oropharyngeal erythema or tonsillar abscesses. Clear PND Eyes: Conjunctivae and EOM are normal. Pupils are equal, round, and reactive to light. Neck: Normal range of motion. Cardiovascular: Normal rate, regular rhythm and normal heart sounds. Pulmonary/Chest: Effort normal and breath sounds normal. No respiratory distress. He has no decreased breath sounds. He has no wheezes. He has no rhonchi. He has no rales. A dry hacking cough was noted during this encounter. Talking in full sentences. Handling secretions without drooling. Lips and nailbeds are pink without cyanosis. Lymphadenopathy: Head (right side): No submental, no submandibular, no tonsillar, no preauricular and no posterior auricular adenopathy present. Head (left side): No submental, no submandibular, no tonsillar, no preauricular and no posterior auricular adenopathy present. He has no cervical adenopathy. Right cervical: No posterior cervical adenopathy present. Left cervical: No posterior cervical adenopathy present. Right: No supraclavicular adenopathy present. Left: No supraclavicular adenopathy present. Skin: Skin is warm and dry. Psychiatric: Affect normal. Nursing note and vitals reviewed. ASSESSMENT/PLAN: 1. Cough - ICD9: 786.2, ICD10: R05 XR is negative Tessalon Perles as prescribed for coughing, do not combine this with other cough and cold medications - XR CHEST 2V FRONTAL/LAT - interpreted by BRAULIO VITALE MD IMPRESSION: No acute radiographic abnormality Diagnosis and treatment plan were discussed and questions were answered to the patient's satisfaction. Pt acknowledged understanding of concepts and follow up plan. Specific signs and symptoms that would indicate the need for higher level of care were discussed in detail warranting prompt ER evaluation. NETO Recinos CNP 10/18/2017 3:48 PM Signed ASSESSMENT/PLAN: 1. Cough - ICD9: 786.2, ICD10: R05 XR is negative Tessalon Perles as prescribed for coughing, do not combine this with other cough and cold medications - XR CHEST 2V FRONTAL/LAT Referring Provider: SELF [[id number]] Allergies As of Date: 10/18/2017 Noted Allergy Reaction Lorelco Other] [Other] 04/13/2005 16 - Unknown PRAVACHOL (PRAVASTATIN SODIUM) 04/13/2005 Date Reviewed: 10/18/2017 Reviewed by: Amna (Neto) Timi - Fully Assessed Reason for Visit: Cough [28] Cmt: had flu this month still has cough x 1 month Primary Visit Diagnosis:Cough [R05] Order(s):XR CHEST 2V FRONTAL/LAT [[id number]] Order #: [id number]. #:[id number] benzonatate (TESSALON PERLE) 100 mg capsuleTake 1 capsule by mouth three times daily as needed.Disp: 30 capsuleRfl: 0 Prescriptions as of 10/18/2017 Sig: BROMOCRIPTINE 2.5 MG TABLET Take 0.5 tablets by mouth onc* LEVOTHYROXINE 50 MCG TABLET Take 1 tablet by mouth once d* LOVASTATIN 10 MG TABLET Take 1 tablet by mouth daily * NAPROXEN SODIUM 220 MG TABLET Take 1 tablet by mouth as nee* BENZONATATE 100 MG CAPSULE Take 1 capsule by mouth three* More... Problem List As Of Date 10/18/2017 Noted Resolved Mixed hyperlipidemia [E78.2] INVALID FOR* More... 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 Erectile dysfunction [N52.9] INVALID FOR*12/21/2016 Hypothyroidism [E03.9] INVALID FOR* Family history of colon cancer [Z80.0] INVALID FOR*12/21/2016 Rectal bleeding [K62.5] INVALID FOR*12/21/2016 Other instructions from your clinician: ASSESSMENT/PLAN: 1. Cough - ICD9: 786.2, ICD10: R05 XR is negative Tessalon Perles as prescribed for coughing, do not combine this with other cough and cold medications - XR CHEST 2V FRONTAL/LAT Prescriptions ordered this encounter Disp Refills Start End BENZONATATE 100 MG CAPSULE 30 c* 0 10/18/2017 Route: ORAL Sig: Take 1 capsule by mouth three times daily as needed. Encounter Status:Closed by AMNA CAPELLAN CNP on 10/18/17 OT D/C OF NON Observed: 09/29/2017 Status: F Source: [facility] PT 10:08 AM [facility] [address] [place] [address]. [address] [place] [address] Fax REHABILITATION SERVICES DISCHARGE SUMMARY MR#: [id number] Acct: [id number] Name: GALEN BYERS Rep #: [id number] : 1945 71 From: Gregoria Araujo Referring Dr.: Radha Wilde DO Status: REG RCR Eval Date: Discharge Date: HP - Discharge Summary - Patient Information GALEN BYERS was seen in my office for initial evaluation on 04/28/17. The following Plan of Care was established for this patient: Initial Frequency: 1x/Week Initial Duration: every other week for 4 w - Anticipated Interventions Anticipated Interventions: A/AAROM/PROM, Strengthening, Modalities, Orthoses, Joint Protection/Energy Conservation, Fine Motor Coord/Roberto, Caregiver Training, Home Program This patient was last seen in our office 04/28/17. Pertinent comments regarding their Occupational therapy will appear below: Pt. seen one time for initial evaluation. He was to return for further follow up. He will be d/c'd at this time. At this point I will be discontinuing this patient from occupational therapy. I would be happy to see this patient again in the future if found appropriate by the physician. Thank you! Gregoria Araujo <Electronically signed by Gregoria Araujo > 09/29/17 1008 CC: Radha Wilde DO; Opal Cooper DO KMB Signed ALLERGIES ALLERGIES DATE TYPE / CODE NAME / CODE REACTION SEVERITY SOURCE 04/13/2005 Miscellaneous OTHER UNKNOWN [place] Allergy/299965052( Clinic Main SNOMED CT) [place] Repository 04/13/2005 DRUG PRAVASTATIN [place] INGREDI/[id number]( SODIUM Clinic Main SNOMED CT) [place] Repository ENCOUNTERS ENCOUNTERS ADMIT/DISCHARGE ACCOUNT ADMITTING ENCOUNTER LOCATION SOURCE NUMBER CLASS 09/15/2018/09/15/20 [id number] Ambulatory [address] Main [place] Repository 09/15/2018/09/15/20 [id number] Ambulatory [address] Repository 09/15/2018/09/17/20 [id number] Ambulatory [address] Repository 08/29/2018 [id number] General acute hospital ing:LAB Repository 04/07/2018/04/07/20 [id number] Ambulatory [address] [place] Repository 03/28/2018/03/29/20 [id number] Ambulatory [address] [place] Repository 01/26/2018/01/27/20 [id number] Ambulatory [address] Main [place] Repository 01/25/2018/01/26/20 [id number] Ambulatory [address] [place] Repository 10/18/2017/10/20/19 [id number] Ambulatory [address] [place] Repository 10/18/2017/10/18/19 [id number] Ambulatory [address] [place] Repository 04/28/2017/04/28/[id number] ing:OT Repository PAYERS PAYERS ENCOUNTER GUARANTOR PAYER SUBSCRIBER SOURCE 08/29/2018 GALEN Lei Primary GALEN B [place] [id number] S Insurance:MEDICARE ALCORNDOB: [facility] [id number] Repository [id number]: [phone] [id number] [phone] () Date:2018-08-29 08/29/2018 Secondary GALEN Tran Insurance:MEDICAL ALCORNDOB: [facility] [id number] Hospital Number: Repository [id number] Date:1447-26-43LH [address] [place] [phone]: 08/29/2018 Tertiary NOT GIVENUNK [place] Insurance:SELF PAY [facility] Number: Effective Repository Date:2018-08-29 04/28/2017 GALEN Lei Primary GALEN B Marc [id number] S Insurance:MEDICARE ALCORNDOB: [facility] [id number] Number: Repository [id number]: [phone] [id number] [phone] () Date:2009-11-04 04/28/2017 Secondary GALEN Tran Insurance:MEDICAL ALCORNDOB: [facility] [id number] Hospital Number: Repository [id number] Date:7047-85-27SO [address] [place] [phone]:
== END ==
PROVIDERS: Family Provider Family Medicine; PCP Family Medicine; Referring Provider Urology; Visit Provider Urology
DX: Z12.5 Encounter for screening for malignant neoplasm of prostate (principal)
CPT/HCPCS: 36415; 84153; G0103

== ENCOUNTER → 2019-10-16 15:31 | Outpatient (CLI) | payer MEDICARE, OTHER, SELFPAY ==
[2019-10-16 17:58] LABS: PSA,Total - Annual Screen 2.93 ng/mL (0.00-4.00)
== END ==
PROVIDERS: Family Provider Family Medicine; PCP Family Medicine; Referring Provider Urology; Visit Provider Urology
DX: Z12.5 Encounter for screening for malignant neoplasm of prostate (principal)
CPT/HCPCS: 36415; 84153; G0103

== ENCOUNTER → 2020-04-03 12:41 | Outpatient (CLI) | payer MEDICARE, OTHER, SELFPAY ==
--- NOTE | 2020-04-03 12:50 | CT_ITS ---
STUDY: CT ABDOMEN AND PELVIS WITHOUT CONTRAST REASON FOR EXAM: Male, 74 years old. HEMATURIA X 1 MONTH RADIATION DOSAGE (If Supplied By Facility): CTDIvol = ( 13.57 ) mGy, DLP = ( 871.30 ) mGycm TECHNIQUE: Transaxial images were obtained from the dome of the diaphragm to the symphysis pubis without oral contrast, and without intravenous contrast. Sagittal and coronal images were reconstructed. Individualized dose optimization techniques were used for this CT. COMPARISON: CT of abdomen and pelvis dated January 13, 2013 FINDINGS: The visualized lung bases are unremarkable. Normal liver. A tiny calcification is present in the anterior medial aspect of the right lobe of the liver. No intrahepatic biliary duct dilatation or liver mass. The gallbladder has been surgically resected. Normal spleen. Normal pancreas. Normal bilateral adrenal glands. Normal right kidney. A 4 mm calyceal stone is present in the upper pole of the left kidney. A 3 mm calyceal stone is present in the upper to mid pole region of the left kidney. Mild cortical lobularity of the left kidney noted. Normal visualized stomach. Normal small intestine. There are multiple sigmoid colonic diverticula consistent with diverticulosis. The remaining colonic loops are unremarkable. Lower intra-abdominal hernia mesh is present across the abdominal wall. No bowel dilatation or obstruction. No free air or free fluid. The appendix is visualized and appears normal. There is diffuse atherosclerotic calcification of the abdominal aorta, without a demonstrated aneurysm. Normal inferior vena cava. Normal retroperitoneum. Normal urinary bladder. There is enlargement of the prostate gland. Normal abdominal wall. There are diffuse degenerative changes of the visualized lumbar spine. CT/Abdomen/Pelvis W IV Cont ONLY IMPRESSION: 1. Sigmoid diverticulosis 2. 3 mm and 4 mm calyceal stones of the upper pole of the left kidney. No hydronephrosis. Electronically Signed: Viktor Smion MD at 14:11 EDT , Service support ,
[2020-04-03 13:01] LABS: CREATININE FINGERSTICK 1.2 mg/dL (0.70-1.30)
== END ==
PROVIDERS: PCP Family Medicine; Referring Provider Nurse Practitioner Adult Health; Visit Provider Nurse Practitioner Adult Health
DX: R31.0 Gross hematuria (principal)
CPT/HCPCS: 74177; Q9967

== ENCOUNTER → 2021-03-27 10:53 | Outpatient (CLI) | payer MEDICARE, OTHER, SELFPAY | PROVIDERS: PCP Family Medicine; Referring Provider Urology; Visit Provider Urology | DX: R97.20 Elevated prostate specific antigen [PSA] (principal) | CPT/HCPCS: 36415; 84153 ==

== ENCOUNTER → 2022-04-23 | Outpatient (CLI) | payer MEDICARE, OTHER, SELFPAY ==
[2022-04-23 18:24] LABS: PSA,Total - Annual Screen 3.34 ng/mL (0.00-4.00)
== END | disposition home or self-care (01) ==
LOC: LAB 15:15
PROVIDERS: PCP Family Medicine; Visit Provider Registered Nurse
DX: Z12.5 Encounter for screening for malignant neoplasm of prostate (principal)
CPT/HCPCS: 36415; 84153; G0103

== ENCOUNTER → 2023-10-28 | Outpatient (CLI) | payer MEDICARE, OTHER, SELFPAY ==
--- OUTSIDE RECORDS SUMMARY | 2023-10-28 14:43 | XMS RPT_ITS | CCD ---
Author Name Unknown Address [address] [place] [address] Organization [facility] Care Team Providers Care Fructose Loader Name Role Phone Martina Medina Unavailable Martina Medina N Unavailable Martina Medina N Unavailable Martina Medina N Unavailable Lou Ramos MD Primary Care Provider Lou Ramos MD Primary Care Provider [phone] Lou Ramos MD Primary Care Provider [phone] JEY GRIFFITH Attending Unavailable JEY GRIFFITH Referring Unavailable LOU RAMOS Primary Care Unavailable JEY MORATAYA Attending Unavailabl e LOU RAMOS Referring Unavailable ALYSSA, LOU Akers Primary Care Unavailable LOU RAMOS Referring Unavailable LOU RAMOS Primary Care Unavailable LOU RAMOS Referring Unavailable LOU RAMOS Primary Care Unavailable LOU RAMOS Attending Unavailable LOU RAMOS Primary Care Unavailable LOU RAMOS Referring Unavailable LOU RAMOS Primary Care Unavailable JEY GRIFFITH Attending Unavailable LOU RAMOS Referring Unavailable LOU RAMOS Primary Care Unavailable JEY GRIFFITH Attending Unavailable JEY GRIFFITH Referring Unavailable LOU RAMOS Primary Care Unavailable JEY MORATAYA Referring Unavailabl e LOU RAMOS Primary Care Unavailable Allergies Allergy Classification Reported Allergen(s) Allergy Type Date of Onset Reaction(s) Facility (4 sources) pravastatin drug allergy 3 [facility] Work Phone: (4 sources) probucol drug allergy 3 [facility] Work Phone: (13 sources) Pravastatin; Translations: [PRAVASTATIN SODIUM] Drug Allergy 5 [facility] Work Phone: (12 sources) [place] Other] [Other] Propensity to adverse reactions 5 Unknown [facility] Work Phone: (1 source) OTHER; Translations: [OTHER] Propensity to adverse reactions (disorder) 5 [facility] Repository Medications Current Medications Medication Drug Class(es) Dates Sig (Normalized) Sig (Original) omeprazole 40 mg delayed release oral capsule (3 sources) Proton Pump Inhibitor Start: 08-03-2023 End: 09-02-2023 take 1 capsule by mouth once daily omeprazole (PRILOSEC) 40 mg capsule Take 1 capsule by mouth once daily. 30 capsule 0 08/03/2023 09/02/2023 Active Completed/Discontinued Medications Medication Drug Class(es) Dates Sig (Normalized) Sig (Original) bromocriptine 2.5 mg oral tablet (18 sources) Ergot Derivative Start: 12-19-2021 End: 08-11-2023 take 1 tablet by mouth two times weekly bromocriptine (PARLODEL) 2.5 mg tablet Indications: Prolactinoma (HCC) Take 1 tablet by mouth two times a week. 24 tablet 3 08/11/2023 Active Problems Active Problems Problem Classification Problem Date Documented Da te Episodic/Chronic Abdominal pain (11 sources) Right upper quadrant pain; Translations: [Left inguinal pain] Onset: 05-20-2023 Resolved: 01-20-2013 01-26-2013 Episodic Disorders of lipid metabolism (16 sources) Mixed hyperlipidemia; Translations: [Mixed hyperlipidemia] Onset: 08-06-2008 09-29-2021 Chronic Gastrointestinal hemorrhage (3 sources) Rectal hemorrhage; Translations: [Hemorrhage of anus and rectum] Onset: 05-20-2023 05-20-2023 Episodic Hyperplasia of prostate (13 sources) Benign prostatic hyperplasia; Translations: [Benign prostatic hyperplasia without lower urinary tract symptoms] Onset: 03-28-2018 03-28-2018 Chronic Open wounds of extremities (1 source) Injury of lower extremity; Translations: [Unspecified open wound, right lower leg, subsequent encounter] Episodic Osteoarthritis (4 sources) Osteoarthritis of knee; Translations: [Osteoarthritis of knee, unspecified] 10-17-2012 Chronic Other circulatory disease (3 sources) Elevated blood-pressure reading without diagnosis of hypertension; Translations: [Elevated blood-pressure reading, without diagnosis of hypertension] Onset: 08-11-2023 08-11-2023 Episodic Other diseases of kidney and ureters (1 source) Renal impairment; Translations: [Disorder of kidney and ureter, unspecified] 05-11-2023 Episodic Other diseases of kidney and ureters (1 source) Disorder of kidney and ureter, unspecified; Translations: [Renal insufficiency] Onset: 05-19-2023 Episodic Other ear and sense organ disorders (1 source) Wax in ear canal; Translations: [Impacted cerumen, unspecified ear] Episodic Other endocrine disorders (15 sources) Hyperprolactinemia; Translations: [Hyperprolactinemia] Onset: 01-16-2021 01-16-2021 Chronic Other endocrine disorders (1 source) Hyperprolactinemia; Translations: [Hyperprolactinemia (HCC)] Onset: 01-16-2021 Chronic Other gastrointestinal disorders (1 source) Chronic constipation; Translations: [Other constipation] Episodic Other gastrointestinal disorders (4 sources) Altered bowel function; Translations: [Other specified symptoms and signs involving the digestive system and abdomen] 05-10-2023 Episodic Other gastrointestinal disorders (1 source) Other specified symptoms and signs involving the digestive system and abdomen; Translations: [Change in bowel function] Onset: 05-20-2023 Episodic Other gastrointestinal disorders (1 source) Personal history of other diseases of the digestive system; Translations: [History of hernia repair] Onset: 05-20-2023 Episodic Other male genital disorders (12 sources) Male erectile dysfunction, unspecified; Translations: [Impotence of organic origin] Onset: 10-12-2013 12-15-2021 Chronic Other non-traumatic joint disorders (1 source) Pain in right knee; Translations: [Pain in joint, lower leg] Episodic Other screening for suspected conditions (not mental disorders or infectious disease) (2 sources) Patient encounter status; Translations: [Encounter for screening for malignant neoplasm of colon] Onset: 08-03-2023 08-03-2023 Episodic Other upper respiratory disease (1 source) Hoarse; Translations: [Dysphonia] 05-10-2023 Episodic Residual codes; unclassified (1 source) Past history of procedure; Translations: [Personal history of other medical treatment] 05-10-2023 Episodic Residual codes; unclassified (2 sources) History of hernia repair; Translations: [Other specified postprocedural states] 05-10-2023 Episodic Residual codes; unclassified (1 source) Other specified postprocedural states; Translations: [History of hernia repair] Onset: 05-20-2023 Episodic Thyroid disorders (20 sources) Acquired hypothyroidism; Translations: [Hypothyroidism, unspecified] Onset: 10-20-2013 Chronic Past or Other Problems Problem Classification Problem Date Documented Date Episodic/Chronic Biliary tract disease (4 sources) Abnormal findings on diagnostic imaging of liver and biliary tract; Translations: [Abnormal findings on diagnostic imaging of liver and biliary tract] Onset: 01-13-2013 01-17-2013 Episodic Genitourinary symptoms and ill-defined conditions (2 sources) Jonathan hematuria; Translations: [Gross hematuria] Onset: 05-10-2023 05-10-2023 Episodic Immunizations and screening for infectious disease (2 sources) Viral screening status; Translations: [Encounter for screening for other viral diseases] Onset: 05-10-2023 05-10-2023 Episodic Joint disorders and dislocations; trauma-related (4 sources) Tear of medial meniscus of knee; Translations: [Other tear of medial meniscus, current injury, unspecified knee] Onset: 10-17-2012 10-17-2012 Episodic Malaise and fatigue (10 sources) Asthenia; Translations: [Weakness] Onset: 05-26-2022 Episodic Other and unspecified benign neoplasm (14 sources) Prolactinoma; 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] Onset: 07-28-2010 01-12-2017 Episodic Other connective tissue disease (5 sources) Extensor tenosynovitis of wrist; Translations: [Radial styloid tenosynovitis] Onset: 04-22-2017 04-22-2017 Episodic Other connective tissue disease (1 source) Radial styloid tenosynovitis; Translations: [Radial styloid tenosynovitis [de Quervain]] Onset: 04-22-2017 04-22-2017 Episodic Other inflammatory condition of skin (4 sources) Pruritus ani; Translations: [Pruritus ani] 08-10-2013 Episodic Other non-traumatic joint disorders (6 sources) Pain in wrist; Translations: [Knee pain] Onset: 10-17-2012 04-22-2017 Episodic Other non-traumatic joint disorders (1 source) Knee pain; Translations: [Pain in unspecified knee] Onset: 10-17-2012 10-17-2012 Episodic Residual codes; unclassified (1 source) Personal history of other medical treatment; Translations: [History of lumbar spine x-ray] Onset: 05-10-2023 Episodic Sprains and strains (4 sources) Sprain of medial collateral ligament of knee; Translations: [Sprain of medial collateral ligament of left knee] Onset: 10-17-2012 10-17-2012 Episodic Results Test Name Value Interpretation Reference Range Facil ity Vital Signs Date Time Vital Sign Value Performing Clinician Facility 08-12-2023 08:39-0500 Body height 170.2 cm Jey Griffith MD Work Phone: [facility] 08-12-2023 08:39-0500 Body temperature 97.39 [degF] Jey Griffith MD Work Phone: [facility] 08-12-2023 08:39-0500 Body weight 80.74 kg Jey Griffith MD Work Phone: [facility] 08-12-2023 08:39-0500 Diastolic blood pressure 82 mm[Hg] Jey Griffith MD Work Phone: [facility] 08-12-2023 08:39-0500 Heart rate 67 /min Jey Griffith MD Work Phone: [facility] 08-12-2023 08:39-0500 SaO2% (BldA) [Mass fraction] 98 % Jey Griffith MD Work Phone: [facility] 08-12-2023 08:39-0500 Systolic blood pressure 150 mm[Hg] Jey Griffith MD Work Phone: [facility] 08-11-2023 08:42-0500 Diastolic blood pressure 82 mm[Hg] Jey Morataya MD Work Phone: [facility] 08-11-2023 08:42-0500 Systolic blood pressure 151 mm[Hg] Jey Morataya MD Work Phone: [facility] 08-11-2023 08:23-0500 Body height 169.5 cm Jey Morataya MD Work Phone: [facility] 08-11-2023 08:23-0500 Body weight 81.1 kg Jey Morataya MD Work Phone: [facility] 08-11-2023 08:23-0500 Heart rate 50 /min Jey Morataya MD Work Phone: [facility] 08-11-2023 08:23-0500 SaO2% (BldA) [Mass fraction] 98 % Jey Morataya MD Work Phone: [facility] 08-03-2023 14:06-0400 Diastolic blood pressure 73 mm[Hg] Jey Griffith MD Work Phone: [facility] 08-03-2023 14:06-0400 Heart rate 59 /min Jey Griffith MD Work Phone: [facility] 08-03-2023 14:06-0400 Respiratory rate 16 /min Jey Griffith MD Work Phone: [facility] 08-03-2023 14:06-0400 SaO2% (BldA) [Mass fraction] 92 % Jey Griffith MD Work Phone: [facility] 08-03-2023 14:06-0400 Systolic blood pressure 120 mm[Hg] eJy Griffith MD Work Phone: [facility] 08-03-2023 11:59-0400 Body temperature 97 [degF] Jey Griffith MD Work Phone: [facility] 08-03-2023 11:59-0400 Body weight 82.4 kg Jey Griffith MD Work Phone: [facility] 05-20-2023 15:08-0400 Body height 172.7 cm Jey Griffith MD Work Phone: [facility] 05-20-2023 15:08-0400 Body temperature 97.5 [degF] Jey Griffith MD Work Phone: [facility] 05-20-2023 15:08-0400 Body weight 82.37 kg Jey Griffith MD Work Phone: [facility] 05-20-2023 15:08-0400 Diastolic blood pressure 68 mm[Hg] Jey Griffith MD Work Phone: [facility] 05-20-2023 15:08-0400 Heart rate 58 /min Jey Griffith MD Work Phone: [facility] 05-20-2023 15:08-0400 SaO2% (BldA) [Mass fraction] 95 % Jey Griffith MD Work Phone: [facility] 05-20-2023 15:08-0400 Systolic blood pressure 130 mm[Hg] Jey Griffith MD Work Phone: [facility] 05-10-2023 08:10-0400 Body height 172.7 cm Lou Ramos MD Work Phone: [facility] 05-10-2023 08:10-0400 Body weight 79.74 kg Lou Ramos MD Work Phone: [facility] 05-10-2023 08:10-0400 Diastolic blood pressure 76 mm[Hg] Lou Ramos MD Work Phone: [facility] 05-10-2023 08:10-0400 Heart rate 54 /min Lou Ramos MD Work Phone: [facility] 05-10-2023 08:10-0400 SaO2% (BldA) [Mass fraction] 96 % Lou Ramos MD Work Phone: [facility] 05-10-2023 08:10-0400 Systolic blood pressure 120 mm[Hg] Lou Ramos MD Work Phone: [facility] 05-05-2022 18:18-0400 Diastolic blood pressure 74 mm[Hg] Ryann Scott APRN.CNP Work Phone: [facility] 05-05-2022 18:18-0400 Systolic blood pressure 138 mm[Hg] Ryann Scott [employer] Work Phone: [facility] 05-05-2022 14:44-0400 Body height 173 cm Ryann Scott [employer] Work Phone: [facility] 05-05-2022 14:44-0400 Body weight 81.19 kg Ryann Scott [employer] Work Phone: [facility] 05-05-2022 14:44-0400 Heart rate 68 /min Ryann Scott [employer] Work Phone: [facility] 05-05-2022 14:44-0400 Respiratory rate 18 /min Ryann Scott [employer] Work Phone: [facility] 05-05-2022 14:44-0400 SaO2% (BldA) [Mass fraction] 98 % Ryann Scott [employer] Work Phone: [facility] 09-07-2013 09:44-0500 BMI (Body Mass Index) 29.3 kg/m2 [facility] Work Phone: 09-07-2013 09:44-0500 Body Temperature 98.7 [degF] [facility] Work Phone: 09-07-2013 09:44-0500 BP Diastolic 72 mm[Hg] [facility] Work Phone: 09-07-2013 09:44-0500 BP Systolic 127 mm[Hg] [facility] Work Phone: 09-07-2013 09:44-0500 BSA (Body Surface Area) 1.96 m2 [facility] Work Phone: 09-07-2013 09:44-0500 Pulse (Heart Rate) 83 /min [facility] Work Phone: 09-07-2013 09:44-0500 Respiratory Rate 14 /min Martina Medina [facility] Work Phone: 09-07-2013 09:44-0500 Weight 84.55 kg Martina BARCENAS [facility] Work Phone: 10-17-2012 10:22-0500 Height 170.18 cm Martina Medina [facility] Work Phone: Encounters Encounter Date Encounter Type Care Provider Facility Start: 08-16-2023 End: 08-16-2023 ambulatory JEY MORATAYA Facility:[facility] Start: 08-12-2023 End: 08-12-2023 ambulatory JEY GRIFFITH Facility:[facility] Start: 08-12-2023 End: 08-12-2023 Patient encounter procedure Jey Griffith MD Work Phone: General Surgery Procedures Date Procedure Procedure Detail Performing Clinician Start: 08-03-2023 Level iv surg pathology gross&microscopic exam Jey Griffith MD Work Phone: Start: 08-03-2023 Esophagogastroduodenoscopy transoral diagnostic Jey Griffith MD Work Phone: Start: 08-03-2023 Colonoscopy flx dx w/collj spec when pfrmd Jey Griffith MD Work Phone: Start: 08-03-2023 Colonoscopy Jey Griffith MD Work Phone: Start: 05-05-2022 Adult depression screening assessment Ryann Scott APRN.CNP Work Phone: Start: 10-25-2019 Adult depression screening assessment Jey Morataya MD Work Phone: Start: 01-20-2013 Laparoscopic cholecystectomy Desiree mendez Work Phone: Plan of Treatment Date Care Activity Detail Author Start: 05-05-2032 Urine microalbumin profile [facility] Start: 08-03-2028 Colonoscopy Colonoscopy [facility] Start: 08-03-2028 Colorectal Cancer Screening Colorectal Cancer Screening [facility] Start: 05-19-2026 DIABETES SCREEN DIABETES SCREEN [facility] Start: 05-19-2026 Diabetes Screening Diabetes Screenin g [facility] Start: 05-10-2026 DIABETES SCREEN DIABETES SCREEN [facility] Start: 12-18-2024 DIABETES SCREEN DIABETES SCREEN [facility] Start: 05-10-2024 ANNUAL PCP TEAM STRATEGY EXECUTION CONSULTANT SERGEY DISEASE VISIT ANNUAL PCP TEAM CHRONIC DISEASE VISIT [facility] Start: 05-10-2024 COVID-19 VACCINE (7 - Pfizer series) COVID-19 VACCINE (7 - Pfizer series) [facility] Immunizations Immunization Date Immunization Notes Care Provider Fa cility 05-05-2022 tetanus toxoid, redu cyrus diphtheria toxoid, and acellular pertussis vaccine, adsorbed Ryann Scott APRN.CNP Work Phone: [facility] 02-03-2021 COVID-19 vaccine, ag e 12+ yr (PFIZER-BIONTECH - PURPLE TOP) Jey Morataya MD Work Phone: [facility] 01-13-2021 COVID-19 vaccine, ag e 12+ yr (PFIZER-BIONTECH - PURPLE TOP) Jey Morataya MD Work Phone: [facility] 10-25-2018 pneumococcal conjuga te vaccine, 13 valent Jey Morataya MD Work Phone: [facility] 09-15-2018 influenza, high dose seasonal, preservative-free Jey Morataya MD Work Phone: [facility] 09-15-2018 influenza virus vacc ine, unspecified formulation Jey Griffith MD Work Phone: [facility] 09-12-2015 pneumococcal polysaccharide vaccine, 23 valent Jey Morataya MD Work Phone: [facility] 02-02-2006 tetanus and diphther ia toxoids, adsorbed, preservative free, for adult use (2 Lf of tetanus toxoid and 2 Lf of diphtheria toxoid) Jey Morataya MD Work Phone: [facility] Work Phone: Payers Date Payer Category Payer Medicare [id number] 2020 Unknown MMO MMO MEDICARE SUPPLEMENT [id number] 2020-Present [phone] [address] [place] [address] Indemnity [id number] 2020 Unknown [id number] 2009 Medicare MEDICARE MEDICAR E A AND B [id number] 2009-Present [phone] [place] [address] Medicare [id number] 2009 Medicare MEDICARE MEDICAR E A AND B [id number] 2009-Present [phone] [place] [address] Medicare [id number] 2009 Medicare [id number] Social History Date Type Detail Facility Start: [facility]10-[facility]23 [facility] End: 09-03-1975 History of tobacco use Current smoker [facility] Start: 12-15-2021 End: 08-12-2023 Alcohol intake Current drinker of alcohol (finding) [facility] Start: 10-26-2019 End: 04-17-2020 History SDOH Alcohol Frequency 2 [facility] Start: 10-26-2019 History SDOH Alcohol Std Drinks 1 [facility] Start: 10-26-2019 End: 04-17-2020 History SDOH Social Connections Phone 3 [facility] Start: 04-17-2020 History SDOH Social Connections [facility] 98 [facility] Start: 04-17-2020 History SDOH Physica l Activity DPW 6 [facility] Start: 10-26-2019 History SDOH Financial 5 [facility] Start: 10-25-2019 Education 15 [facility] Start: 1945 Sex Assigned At Male C [facility] Start: 04-25-2022 End: 05-05-2022 Exposure to SARS-CoV-2 (event) Not sure [facility] End: 09-03-1975 History of tobacco use Cigarette Smoker [facility] Start: 05-10-2023 Tobacco use and exposure Smoke less tobacco non-user [facility] Start: 04-16-2020 End: 05-20-2023 History of Social function [facility] Start: 04-16-2020 End: 05-20-2023 Social connection and isolation panel [facility] Frequency of Communi cation with Friends and Family Not on file [facility] How often to you hav e a drink containing alcohol? Monthly or less [facility] How many standard dr inks containing alcohol do you have on a typical day? 1 or 2 [facility] How often do you hav e 6 or more drinks on 1 occasion? Never [facility] Do you feel stress - tense, restless, nervous, or anxious, or unable to sleep at night because your mind is troubled all the time - these days [OSQ] Only a little [facility] (I/We) worried [facility] (my/our) food would run out before (I/we) got money to buy more. Never true [facility] In the past 12 month s, was there a time when you were not able to pay the mortgage or rent on time? No [facility] Start: 05-10-2023 Tobacco Comment [facility] Start: 04-16-2020 Gender identity Identifies as male gender (finding) [facility] Start: 04-16-2020 Sexual orientation Heterosexual (charisma sarabia) [facility] Clinical Notes 12-26-2015 to 08-16-2023 Jey Griffith MD - 08/12/2023 2:08 PM ESTPatient InstructionsJey Morataya MD - 08/11/2023 8:30 AM Lisa Agustin RN - 08/03/2023 1:36 PM EDTPatient Instructions Note Date & Type Note Facility 08-16-2023 Note HNO ID: [id number] Author: Amy Villalpando RDMS Service: ? Author Type: Academic Affairs Director Type: Progress Notes Filed: 08/16/2023 9:44 AM Note Text: Radiology Service Progress Note PATIENT NAME: Galen Byers DATE OF SERVICE: August 16, 2023 TIME: 9:44 AM PATIENT IDENTITY VERIFICATION COMPLETED USING TWO (2) IDENTIFIERS: Name and Date of confirmed by patient verbally. FALL SCREENING: Has the patient had 2 falls in the last year or 1 fall with injury or currently using an Ambulatory Assistive Device (Walker, Cane, Wheelchair, Crutches, etc.)? No PATIENT GENDER DATA: Male PATIENT RELEVANT IMPLANT DATA REVIEWED: Not Applicable RADIOLOGY DEPARTMENT: Ultrasound PERIPHERAL IV DATA: Not applicable SIGNED BY: Amy Villalpando RDMS August 16, 2023 9:44 AM [facility] 08-12-2023 Note HNO ID: [id number] Author: Jey Griffith MD Service: ? Author Type: Physician Type: Progress Notes Filed: 08/12/2023 2:13 PM Note Text: FOLLOW UP VISIT - ENDOSCOPY NAME: Galen Byers CLINIC NO.: [id number] DATE OF SERVICE: 08/12/2023 : 1945 REFERRING PHYSICIAN: Lou Ramos MD Galen is a patient I am following for rectal bleeding. The patient is a 77 year old male referred for endoscopy. Galen notes that he has had constipation. He notes harder stools this is somewhat improved with Metamucil. He is now having a bowel movement approximately daily. The patient also notes blood per rectum. This seemed to start prior to his constipation issues. He has had this episodically for 1 year. He is uncertain whether the blood is mixed within the stool. The patient notes no history of upper GI complaints. Galen has undergone prior endoscopy. I performed colonoscopy in 2016 for rectal bleeding this demonstrated no abnormalities. The patient does relate that he has a maternal history of history of colon cancer and is therefore due for follow-up colonoscopy in any event. I performed upper and lower endoscopy on August 03, 2023. The patient was found to have: Upper endoscopy - Impression: - Normal examined jejunum. - Duodenitis. - Gastritis. Biopsied. - Mildly severe reflux esophagitis with no bleeding. Biopsied. - Normal middle third of esophagus. Biopsied. Lower Endoscopy Impression: - One 8 mm polyp in the proximal transverse colon, removed with a cold snare. Resected and retrieved. - Diverticulosis in the left colon. - The examination was otherwise normal on direct and retroflexion views. Pathology demonstrated: FINAL DIAGNOSIS A. Stomach, antrum, biopsy: - Gastric antral and oxyntic mucosa with no diagnostic abnormality. B. Esophagus, distal, biopsy: - Squamous mucosa with no diagnostic abnormality. C. Esophagus, mid, biopsy: - Squamous mucosa with no diagnostic abnormality. D. Colon, proximal transverse, polyp, biopsy: - Sessile serrated polyp. The patient notes improved complaints since the procedure and starting Prilosec. VITALS: Blood pressure 150/82, pulse 67, temperature 36.3 ?C (97.4 ?F), height 170.2 cm (5' 7 ), weight 80.7 kg (178 lb), SpO2 98 %. On examination, the abdomen is benign. Assessment IMPRESSION: Gastritis, distal esophagitis, serrated polyp PLAN: If the patient notes any problems or changes in bowel function, the patient should contact me immediately. Otherwise I recommend follow up endoscopy as needed. You were found to have a serrated polyp. I recommend you undergo repeat endoscopy in 5 years. If you note bleeding, change in bowel habits, or other suspicious colon related symptoms before that time, those symptoms should be evaluated as necessary. If you have any difficulties or concerns, you should contact our office immediately. Diagnoses: (R19.8) Change in bowel function (primary encounter diagnosis) Return to Clinic: The patient is instructed to follow-up with me as needed. Jey Griffith MD [facility] 08-12-2023 History of Present illness Narrative FOLLOW UP VISIT - ENDOSCOPY NAME: Galen Byers [facility] NO.: [id number] DATE OF SERVICE: 08/12/2023 : 1945 REFERRING PHYSICIAN: Lou Ramos MD Galen is a patient I am following for rectal bleeding. The patient is a 77 year old male referred for endoscopy. Galen notes that he has had constipation. He notes harder stools this is somewhat improved with Metamucil. He is now having a bowel movement approximately daily. The patient also notes blood per rectum. This seemed to start prior to his constipation issues. He has had this episodically for 1 year. He is uncertain whether the blood is mixed within the stool. The patient notes no history of upper GI complaints. Galen has undergone prior endoscopy. I performed colonoscopy in 2016 for rectal bleeding this demonstrated no abnormalities. The patient does relate that he has a maternal history of history of colon cancer and is therefore due for follow-up colonoscopy in any event. I performed upper and lower endoscopy on August 03, 2023. The patient was found to have: Upper endoscopy - Impression: - Normal examined jejunum. - Duodenitis. - Gastritis. Biopsied. - Mildly severe reflux esophagitis with no bleeding. Biopsied. - Normal middle third of esophagus. Biopsied. Lower Endoscopy Impression: - One 8 mm polyp in the proximal transverse colon, removed with a cold snare. Resected and retrieved. - Diverticulosis in the left colon. - The examination was otherwise normal on direct and retroflexion views. Pathology demonstrated: FINAL DIAGNOSIS A. Stomach, antrum, biopsy: - Gastric antral and oxyntic mucosa with no diagnostic abnormality. B. Esophagus, distal, biopsy: - Squamous mucosa with no diagnostic abnormality. C. Esophagus, mid, biopsy: - Squamous mucosa with no diagnostic abnormality. D. Colon, proximal transverse, polyp, biopsy: - Sessile serrated polyp. The patient notes improved complaints since the procedure and starting Prilosec. VITALS: Blood pressure 150/82, pulse 67, temperature 36.3 C (97.4 F), height 170.2 cm (5' 7 ), weight 80.7 kg (178 lb), SpO2 98 %. On examination, the abdomen is benign. Assessment IMPRESSION: Gastritis, distal esophagitis, serrated polyp PLAN: If the patient notes any problems or changes in bowel function, the patient should contact me immediately. Otherwise I recommend follow up endoscopy as needed. You were found to have a serrated polyp. I recommend you undergo repeat endoscopy in 5 years. If you note bleeding, change in bowel habits, or other suspicious colon related symptoms before that time, those symptoms should be evaluated as necessary. If you have any difficulties or concerns, you should contact our office immediately. Diagnoses: (R19.8) Change in bowel function (primary encounter diagnosis) Return to Clinic: The patient is instructed to follow-up with me as needed. eJy Griffith MD documented in this encounter [facility] 08-11-2023 Note HNO ID: [id number] Author: Jey Morataya MD Service: ? Author Type: Physician Type: Progress Notes Filed: 08/11/2023 8:47 AM Note Text: Follow-up 77 year-old male, patient of Dr. Lou Ramos, with history of pituitary prolactinoma and hypothyroidism. Last seen here in 2020. He initially had two adenomata; however, neither seen on imaging in 2016. He tried to stop bromocriptine in 2011 and 2016, but prolactin level violette to > 50 each time. Notes no side effects from the bromocriptine. No new headaches. Notes no visual changes. Had COVID vaccination. Says maximal height was 5'9 . (+) history of rib fractures. (+) fall, but no fractures in the past year. Refuses flu shots. Rare mild headaches. (+) dysphagia. Current Outpatient Medications on File Prior to Visit Medication Sig lovastatin (MEVACOR) 10 mg tablet Take 1 tablet by mouth daily at bedtime. omeprazole (PRILOSEC) 40 mg capsule Take 1 capsule by mouth once daily. dutasteride (AVODART) 0.5 mg capsule Take 1 capsule by mouth every afternoon. levothyroxine (SYNTHROID) 50 mcg tablet Take 1 tablet by mouth once daily. Take two pills on Sundays bromocriptine (PARLODEL) 2.5 mg tablet Take 1 tablet by mouth two times a week. Wqghi-3-GYB-EPA-Fish Oil (FISH OIL) 1,000 mg (120 mg-180 mg) cap Take 2 capsules by mouth twice daily. niacin (NIACIN) 500 mg tablet Take 500 mg by mouth daily with breakfast. naproxen sodium (ALEVE) 220 mg tablet Take 1 tablet by mouth as needed. ALLERGIES Allergen Reactions Lorelco Other] [Oth* Unknown Pravachol [Pravasta* PAST MEDICAL HISTORY Pure Hypercholesterolemia Hyperplasia of Prostate Personal History of Colonic Polyps (Colon polyps) Diverticulosis of Colon (Without Mention of Hemorrhage) PAST SURGICAL HISTORY Repair Ing Hernia,5+y/O,Reducibl (Hernia repair, inguinal, recent laparoscopic, had 2 prior hernia repairs on LT) Repair of Nasal Septum (Septoplasty) Colonoscop W/ Or W/O [facility] Spec - 2004 (Colonoscopy) Colonoscop W/ Or W/O [facility] Spec - 12/26/09 (Repeat in 5 years (-2014)) Transurethral Elec-Surg Prostatectom - 2009 (TURP) Cholecystectomy Knee Arthroscopy/Surgery REVIEW OF SYSTEMS: Patient notes no weight changes, fever, fatigue, weakness, change in balance or sensation, visual problems, hearing changes, dizziness, trouble swallowing, nasal difficulties, shortness of breath, chest pain, change in exertional tolerance, foot or leg problems, skin lesions, abdominal pain, diarrhea, constipation, urinary problems, incontinence, back pain, joint pains, anxiety, depression, insomnia. Remainder of review of systems was unremarkable. BP 154/96 Pulse (!) 50 Ht 169.5 cm (5' 6.73 ) Wt 81.1 kg (178 lb 12.7 oz) SpO2 98% BMI 28.23 kg/m? General appearance: Well-appearing, overweight (BMI greater than 25) septuagenarian male, alert, in no acute distress, well-hydrated, well nourished. Weight down 9 pounds since 12/2021, height stable. BP elevated, pulse regular. Repeat BP 151/82 Skin: Skin color, texture, turgor normal, no suspicious rashes or lesions Head: normocephalic, no masses, lesions, tenderness or abnormalities Eyes: Anicteric sclera. Pupils are equally round. Extraocular movements are intact. Ears: not examined Nose/Sinuses: Nares normal. No drainage or sinus tenderness. Oropharynx: Lips, mucosa, and tongue normal, teeth and gums not examined. Neck: Supple, no adenopathy; (+) right thyroid enlargement. Lungs: Breathing unlabored. Heart: RRR. No ectopy Abdomen: deferred Extremities: No deformities, edema, skin discoloration, clubbing or cyanosis. Good capillary refill. Musculoskeletal: Spine range of motion not tested. Muscular strength intact, No joint swelling, deformity, or tenderness Peripheral pulses: Normal Neuro: Gait normal. Sensation grossly intact. Latest Reference Range AND Units 05/19/23 08:18 Sodium 136 - 144 mmol/L 140 Potassium 3.7 - 5.1 mmol/L 5.0 Chloride 97 - 105 mmol/L 108 (H) CO2 22 - 30 mmol/L 18 (L) BUN 9 - 24 mg/dL 18 Creatinine 0.73 - 1.22 mg/dL 1.24 (H) Glucose 74 - 99 mg/dL 85 Calcium 8.5 - 10.2 mg/dL 9.3 Magnesium 1.7 - 2.3 mg/dL 2.3 Anion Gap 9 - 18 mmol/L 14 eGFR >=60 mL/min/1.73m? 60 Latest Reference Range AND Units 05/10/23 09:20 Cholesterol, Total <200 mg/dL 165 Triglyceride <150 mg/dL 166 (H) HDL Cholesterol >39 mg/dL 36 (L) LDL Cholesterol <100 mg/dL 96 Free T4 0.9 - 1.7 ng/dL 1.4 TSH 0.270 - 4.200 mIU/L 2.960 Prolactin 4.0 - 15.2 ng/mL 12.7 (H): Data is abnormally high (L): Data is abnormally low MRI in 07/2011 showed only a since 2 mm pituitary lesion. MRI in 01/2017 did not show any pituitary lesion. Visual field exam in 12/2014 was normal. Assessment: Pituitary adenoma - not seen on 2017 exam, no new symptoms Hyperprolactinemia - continue the current bromocriptine dose Hypothyroidism - continue current levothyroxine dose Mixed hyperlipidemia - continue low-dose lo (more content not included)... [facility] 08-11-2023 Instructions Jey Morataya MD - 08/11/2023 8:39 AM EST Continue current medications. Check thyroid ultrasound - will call with results. See me again in 12 months. documented in this encounter [facility] 08-11-2023 History of Present illness Narrative Follow-up 77 year-old male, patient of Dr. Lou Ramos, with history of pituitary prolactinoma and hypothyroidism. Last seen here in 2020. He initially had two adenomata; however, neither seen on imaging in 2017. He tried to stop bromocriptine in 2011 and 2016, but prolactin level violette to > 50 each time. Notes no side effects from the bromocriptine. No new headaches. Notes no visual changes. Had COVID vaccination. Says maximal height was 5'9 . (+) history of rib fractures. (+) fall, but no fractures in the past year. Refuses flu shots. Rare mild headaches. (+) dysphagia. Current Outpatient Medications on File Prior to Visit Medication Sig lovastatin (MEVACOR) 10 mg tablet Take 1 tablet by mouth daily at bedtime. omeprazole (PRILOSEC) 40 mg capsule Take 1 capsule by mouth once daily. dutasteride (AVODART) 0.5 mg capsule Take 1 capsule by mouth every afternoon. levothyroxine (SYNTHROID) 50 mcg tablet Take 1 tablet by mouth once daily. Take two pills on Sundays bromocriptine (PARLODEL) 2.5 mg tablet Take 1 tablet by mouth two times a week. Gppdl-4-YVW-EPA-Fish Oil (FISH OIL) 1,000 mg (120 mg-180 mg) cap Take 2 capsules by mouth twice daily. niacin (NIACIN) 500 mg tablet Take 500 mg by mouth daily with breakfast. naproxen sodium (ALEVE) 220 mg tablet Take 1 tablet by mouth as needed. ALLERGIES Allergen Reactions Lorelco Other] [Oth* Unknown Pravachol [Pravasta* PAST MEDICAL HISTORY Pure Hypercholesterolemia Hyperplasia of Prostate Personal History of Colonic Polyps (Colon polyps) Diverticulosis of Colon (Without Mention of Hemorrhage) PAST SURGICAL HISTORY Repair Ing Hernia,5+y/O,Reducibl (Hernia repair, inguinal, recent laparoscopic, had 2 prior hernia repairs on LT) Repair of Nasal Septum (Septoplasty) Colonoscop W/ Or W/O [facility] Spec - 2004 (Colonoscopy) Colonoscop W/ Or W/O [facility] Spec - 12/26/09 (Repeat in 5 years (-2014)) Transurethral Elec-Surg Prostatectom - 2009 (TURP) Cholecystectomy Knee Arthroscopy/Surgery REVIEW OF SYSTEMS: Patient notes no weight changes, fever, fatigue, weakness, change in balance or sensation, visual problems, hearing changes, dizziness, trouble swallowing, nasal difficulties, shortness of breath, chest pain, change in exertional tolerance, foot or leg problems, skin lesions, abdominal pain, diarrhea, constipation, urinary problems, incontinence, back pain, joint pains, anxiety, depression, insomnia. Remainder of review of systems was unremarkable. BP 154/96 Pulse (!) 50 Ht 169.5 cm (5' 6.73 ) Wt 81.1 kg (178 lb 12.7 oz) SpO2 98% BMI 28.23 kg/m General appearance: Well-appearing, overweight (BMI greater than 25) septuagenarian male, alert, in no acute distress, well-hydrated, well nourished. Weight down 9 pounds since 12/2021, height stable. BP elevated, pulse regular. Repeat BP 151/82 Skin: Skin color, texture, turgor normal, no suspicious rashes or lesions Head: normocephalic, no masses, lesions, tenderness or abnormalities Eyes: Anicteric sclera. Pupils are equally round. Extraocular movements are intact. Ears: not examined Nose/Sinuses: Nares normal. No drainage or sinus tenderness. Oropharynx: Lips, mucosa, and tongue normal, teeth and gums not examined. Neck: Supple, no adenopathy; (+) right thyroid enlargement. Lungs: Breathing unlabored. Heart: RRR. No ectopy Abdomen: deferred Extremities: No deformities, edema, skin discoloration, clubbing or cyanosis. Good capillary refill. Musculoskeletal: Spine range of motion not tested. Muscular strength intact, No joint swelling, deformity, or tenderness Peripheral pulses: Normal Neuro: Gait normal. Sensation grossly intact. Latest Reference Range & Units 05/19/23 08:18 Sodium 136 - 144 mmol/L 140 Potassium 3.7 - 5.1 mmol/L 5.0 Chloride 97 - 105 mmol/L 108 (H) CO2 22 - 30 mmol/L 18 (L) BUN 9 - 24 mg/dL 18 Creatinine 0.73 - 1.22 mg/dL 1.24 (H) Glucose 74 - 99 mg/dL 85 Calcium 8.5 - 10.2 mg/dL 9.3 Magnesium 1.7 - 2.3 mg/dL 2.3 Anion Gap 9 - 18 mmol/L 14 eGFR >=60 mL/min/1.73m 60 Latest Reference Range & Units 05/10/23 09:20 Cholesterol, Total <200 mg/dL 165 Triglyceride <150 mg/dL 166 (H) HDL Cholesterol >39 mg/dL 36 (L) LDL Cholesterol <100 mg/dL 96 Free T4 0.9 - 1.7 ng/dL 1.4 TSH 0.270 - 4.200 mIU/L 2.960 Prolactin 4.0 - 15.2 ng/mL 12.7 (H): Data is abnormally high (L): Data is abnormally low MRI in 07/2011 showed only a since 2 mm pituitary lesion. MRI in 01/2017 did not show any pituitary lesion. Visual field exam in 12/2014 was normal. Assessment: Pituitary adenoma - not seen on 2017 exam, no new symptoms Hyperprolactinemia - continue the current bromocriptine dose Hypothyroidism - continue current levothyroxine dose Mixed hyperlipidemia - continue low-dose lovastatin + niacin Possible right thyroid nodule - check thyroid US Elevated blood pressure without diagnosis of hypertension - check BP in the community, stressed goal BP less than 130/80 mm Hg. Plan: Check thyroid ultrasound at [facility] Will call with results. Continue current medication. See me again in 12 months. Jey Morataya MD I spent a total of 30 minutes on the date of service which included preparing to see the patient, [id number] patient care, completing clinical documentation, performing a medically appropriate examination, counseling and educating the patient/family/caregiver and ordering medications, tests, or procedures. documented in this encounter [facility] 08-03-2023 Nurse Note Arrived in phase II via cart. Left lateral position. Sedated, but responds to verbal stimuli. Color normal; skin warm and dry. Respirations wnl and unlabored. Abdomen soft and with + bowel sounds in quads X 4. Patient resting comfortably. Family at bedside. Dr. Griffith at bedside to review procedure and recommendations. Lisa Liu RN documented in this encounter [facility] 08-03-2023 History and physical note UPDATED PROCEDURAL SEDATION HISTORY AND PHYSICAL EXAMINATION SERVICE DATE: 08/03/2023 SERVICE TIME: 11:59 AM PHYSICAL EXAM MUST BE COMPLETED ON ADMISSION PROCEDURE: Procedure Indications: The History and Physical (completed in the past 30 days) has been reviewed and the patient has been examined. The contents accurately reflect the patient's condition with the following additions or revisions since the H&P was completed. ASA Class: ASA Class:: Patient with mild systemic disease Examination indicates no changes. AIRWAY: Airway Visualization of Uvula: Yes Mouth opening greater than 2 fingerbreadths: Yes Neck Full Range of Motion: Yes LUNGS: Lungs clear to auscultation CARDIAC: Regular rhythm,Regular rate Also noted GERD and dysphagia Provisional Diagnosis/Treatment Plan: constipation, blood per rectum, GERD, dysphagia - EGD and Colonoscopy SEDATION GOAL: Moderate This H&P can be found in the attached. SIGNATURE: Jey Griffith MD PATIENT NAME: Galen Byers DATE: August 03, 2023 TIME: 11:59 AM Source Note - Jey Griffith MD - 08/03/2023 11:15 AM EDT Images from the original note were not included. HISTORY AND PHYSICAL Galen Byers 1945 REFERRING PHYSICIAN: Lou Ramos MD CHIEF COMPLAINT: Consult (LEFT INGUINAL HERNIA) HPI: The patient is a 77 year old male referred for endoscopy. Galen notes that he has had constipation. He notes harder stools this is somewhat improved with Metamucil. He is now having a bowel movement approximately daily. The patient also notes blood per rectum. This seemed to start prior to his constipation issues. He has had this episodically for 1 year. He is uncertain whether the blood is mixed within the stool. The patient notes no history of upper GI complaints. Galen has undergone prior endoscopy. I performed colonoscopy in 2016 for rectal bleeding this demonstrated no abnormalities. The patient does relate that he has a maternal history of history of colon cancer and is therefore due for follow-up colonoscopy in any event. The patient also questions whether he is having a recurrence of his hernia. The patient notes left inguinal discomfort when he lifts or walks a lot. He stated he experienced left inguinal pain last week but then noted blood in his urine the following day. He had seen Dr. Lobo at [facility] in the past for these complaints who felt this was related to benign prostatic hypertrophy. She has had 2 previous open inguinal hernia repairs in the past and I performed a bilateral laparoscopic inguinal hernia repair on August 23, 2005 The patient is being seen by me today at the request of Lou Singh J, MD for my opinion and advice regarding inguinal pain and rectal bleeding with family history of colon cancer. PAST MEDICAL HISTORY PAST MEDICAL HISTORY Diagnosis Date Diverticulosis of colon (without mention of hemorrhage) Erectile dysfunction 10/12/2013 Family history of colon cancer 12/26/2015 Hyperplasia of prostate Hyperprolactinemia (HCC) \ HYPERTROPHY PROSTATE WITH OBST 09/03/2005 Hypothyroid INGUINAL HERNIA, BILAT, RECURRENT W/O GANGRENE/OBSTRUCTION 09/01/2005 Personal history of colonic polyps Colon polyps Pituitary adenoma (HCC) Pure hypercholesterolemia PAST SURGICAL HISTORY PAST SURGICAL HISTORY Procedure Laterality Date CHOLECYSTECTOMY COLONOSCOPY FLX DX W/COLLJ SPEC WHEN PFRMD 2004 Colonoscopy COLONOSCOPY FLX DX W/COLLJ SPEC WHEN PFRMD 12/26/09 Repeat in 5 years (-2014) KNEE ARTHROSCOPY/SURGERY RPR 1ST INGUN HRNA AGE 5 YRS/> REDUCIBLE Hernia repair, inguinal, recent laparoscopic, had 2 prior hernia repairs on LT SEPTOPLASTY/SUBMUCOUS RESECJ W/WO CARTILAGE GRF Septoplasty TRANSURETHRAL ELEC-SURG PROSTATECTOM 2009 TURP CURRENT MEDICATIONS Current Outpatient Medications Medication Sig dutasteride (AVODART) 0.5 mg capsule Take 1 capsule by mouth every afternoon. levothyroxine (SYNTHROID) 50 mcg tablet Take 1 tablet by mouth once daily. Take two pills on Sundays bromocriptine (PARLODEL) 2.5 mg tablet Take 1 tablet by mouth two times a week. lovastatin (MEVACOR) 10 mg tablet Take 1 tablet by mouth daily at bedtime. Ezjbn-8-GBA-EPA-Fish Oil (FISH OIL) 1,000 mg (120 mg-180 mg) cap Take 2 capsules by mouth twice daily. niacin (NIACIN) 500 mg tablet Take 500 mg by mouth daily with breakfast. naproxen sodium (ALEVE) 220 mg tablet Take 1 tablet by mouth as needed. No current facility-administered medications for this visit. ALLERGIES: Lorelco Other] [Other] and Pravachol [Pravastatin Sodium] PERSONAL HISTORY: SOCIAL HISTORY Social History Tobacco Use Smoking status: Former Types: Cigarettes Quit date: 09/03/1975 Years since quittin.7 Smokeless tobacco: Never Tobacco comments: vary rare usage Vaping Use Vaping Use: Never used Substance Use Topics Alcohol use: Yes Comment: TWICE YEARLY Drug use: No FAMILY HISTORY: FAMILY HISTORY FAMILY HISTORY Problem Relation Age of Onset Colon Cancer Mother Coronary Artery Disease Father Cancer Brother REVIEW OF SYMPTOMS: The review of systems data was entered by the nurse and reviewed by me Nursing Notes: Kylie Lares LPN 05/20/2023 3:14 PM Signed REVIEW OF SYSTEMS: General: The patient denies fatigue, denies weight loss, denies weight gain, denies feeling hot, and denies feelings of cold. Eyes: The patient denies glaucoma, denies eye injury/surgery, does not wear glasses or contacts. Ear/Nose/Throat: The patient denies allergies, denies hayfever, denies ear infections, and denies bloody noses. Cardiovascular: The patient denies chest pain, denies heart disease, denies high blood pressure,denies cardiac stent, denies prior heart attack, denies irregular heart beat, denies high cholesterol, denies poor circulation, denies heart failure, other cardiac issues, denies claudication, denies cold feet, denies peripheral arterial stent. Respiratory: The patient denies tuberculosis, denies pneumonia, denies frequent cough, denies pulmonary embolism, denies shortness of breath, and denies coughing up blood. Gastrointestinal: The patient denies difficulty swallowing, denies acid reflux, denies ulcers, denies vomiting, denies jaundice/hepatitis, NOTES gallbladder problems, denies black or tarry stools, denies hemorrhoids, denies bleeding from rectum, denies diverticulitis, denies constipation, denies diarrhea, denies loss of stool control, and NOTES hernias. Kidney/Bladder: The patient deniesdenies kidney stones, denies urine infections, and denies bloody urine. Skin: The patient denies a history of skin cancer, denies bleeding/changing moles, and denies a history of skin rash. Neurologic: The patient denies a history of epilepsy/convulsions, denies headaches, denies head/spinal injuries, and denies stroke/TIA. Psychiatric: The patient denies psychiatric medications, denies depression, and denies voices, denies substance abuse. Endocrine: The patient NOTES thyroid disorders, denies diabetes, and denies hormonal problems. Hematologic: The patient denies a history of bruising, denies bleeding, and denies anemia, denies blood clots. Infections: The patient denies a history of measles and mumps, denies rheumatic fever, and denies sexually transmitted diseases. Musculoskeletal: The patient denies back pain/injury, denies back problems, denies sciatica, NOTES knee/foot trouble, denies arthritis, or denies gout. When was patient's last Mammogram screening? N/A Last Colonoscopy: 2015 Kylie Lares LPN PHYSICAL EXAMINATION: General: The patient is 77 year old male, well nourished, well hydrated in no acute distress. The patient is oriented to time, place, and person. VITALS: Blood pressure 130/68, pulse (!) 58, temperature 36.4 C (97.5 F), height 172.7 cm (5' 8 ), weight 82.4 kg (181 lb 9.6 oz), SpO2 95 %. Body mass index is 27.61 kg/m . HEENT: Normal cephalic, ataumatic, pupils are equally round, sclera are anicteric, mucous membranes are moist, oropharynx is clear. Neck has no masses, asymmetry or lymphadenopathy. Thyroid is unremarkable. Respiratory: Clear to auscultation and percussion. Normal respiratory excursion and pattern. Cardiac: Examination is regular rate and rhythm. Abdominal exam: Soft, nontender, with no palpable masses. No hepatosplenomegaly. No palpable hernias. Rectal exam: exam deferred Extremities: no clubbing, cyanosis or edema. No adenopathy. Other: LABORATORY VALUES: As Noted RADIOLOGIC STUDIES: As Noted Assessment IMPRESSION: No palpable inguinal hernias, rectal bleeding with family history of colon cancer PLAN: I plan to perform lower endoscopy. We discussed the risks and benefits of the planned endoscopy. I have informed the patient that complications can occur including failure to complete the endoscopy and perforation. The patient had the opportunity to ask questions concerning the planned endoscopy. My staff has also explained the procedure to the patient in understandable terms and has given the patient printed material concerning the procedure. The patient freely consents to surgery. I plan to use golytely bowel preparation for endoscopy Diagnoses: (K62.5) Rectal bleeding (primary encounter diagnosis) (R19.8) Change in bowel function (R10.32) Left inguinal pain (Z98.890, Z87.19) History of hernia repair My findings have been communicated to Lou Singh MD via shared medical record. This note will be forwarded to Lou Singh MD. Return to Clinic: The patient is instructed to follow-up with me after the testing has been completed. Jey Griffith MD Images from the original note were not included. HISTORY AND PHYSICAL Galen Byers 1945 REFERRING PHYSICIAN: Lou Ramos MD CHIEF COMPLAINT: Consult (LEFT INGUINAL HERNIA) HPI: The patient is a 77 year old male referred for endoscopy. Galen notes that he has had constipation. He notes harder stools this is somewhat improved with Metamucil. He is now having a bowel movement approximately daily. The patient also notes blood per rectum. This seemed to start prior to his constipation issues. He has had this episodically for 1 year. He is uncertain whether the blood is mixed within the stool. The patient notes no history of upper GI complaints. Galen has undergone prior endoscopy. I performed colonoscopy in 2016 for rectal bleeding this demonstrated no abnormalities. The patient does relate that he has a maternal history of history of colon cancer and is therefore due for follow-up colonoscopy in any event. The patient also questions whether he is having a recurrence of his hernia. The patient notes left inguinal discomfort when he lifts or walks a lot. He stated he experienced left inguinal pain last week but then noted blood in his urine the following day. He had seen Dr. Lobo at [facility] in the past for these complaints who felt this was related to benign prostatic hypertrophy. She has had 2 previous open inguinal hernia repairs in the past and I performed a bilateral laparoscopic inguinal hernia repair on August 23, 2005 The patient is being seen by me today at the request of Lou Singh MD for my opinion and advice regarding inguinal pain and rectal bleeding with family history of colon cancer. PAST MEDICAL HISTORY PAST MEDICAL HISTORY Diagnosis Date Diverticulosis of colon (without mention of hemorrhage) Erectile dysfunction 10/12/2013 Family history of colon cancer 12/26/2015 Hyperplasia of prostate Hyperprolactinemia (HCC) \ HYPERTROPHY PROSTATE WITH OBST 09/03/2005 Hypothyroid INGUINAL HERNIA, BILAT, RECURRENT W/O GANGRENE/OBSTRUCTION 09/01/2005 Personal history of colonic polyps Colon polyps Pituitary adenoma (HCC) Pure hypercholesterolemia PAST SURGICAL HISTORY PAST SURGICAL HISTORY Procedure Laterality Date CHOLECYSTECTOMY COLONOSCOPY FLX DX W/COLLJ SPEC WHEN PFRMD 2004 Colonoscopy COLONOSCOPY FLX DX W/COLLJ SPEC WHEN PFRMD 12/26/09 Repeat in 5 years (3-2014) KNEE ARTHROSCOPY/SURGERY RPR 1ST INGUN HRNA AGE 4 YRS/> REDUCIBLE Hernia repair, inguinal, recent laparoscopic, had 2 prior hernia repairs on LT SEPTOPLASTY/SUBMUCOUS RESECJ W/WO CARTILAGE GRF Septoplasty TRANSURETHRAL ELEC-SURG PROSTATECTOM 2009 TURP CURRENT MEDICATIONS Current Outpatient Medications Medication Sig dutasteride (AVODART) 0.5 mg capsule Take 1 capsule by mouth every afternoon. levothyroxine (SYNTHROID) 50 mcg tablet Take 1 tablet by mouth once daily. Take two pills on Sundays bromocriptine (PARLODEL) 2.5 mg tablet Take 1 tablet by mouth two times a week. lovastatin (MEVACOR) 10 mg tablet Take 1 tablet by mouth daily at bedtime. Podhc-7-ZJK-EPA-Fish Oil (FISH OIL) 1,000 mg (120 mg-180 mg) cap Take 2 capsules by mouth twice daily. niacin (NIACIN) 500 mg tablet Take 500 mg by mouth daily with breakfast. naproxen sodium (ALEVE) 220 mg tablet Take 1 tablet by mouth as needed. No current facility-administered medications for this visit. ALLERGIES: Lorelco Other] [Other] and Pravachol [Pravastatin Sodium] PERSONAL HISTORY: SOCIAL HISTORY Social History Tobacco Use Smoking status: Former Types: Cigarettes Quit date: 09/03/1975 Years since quittin.7 Smokeless tobacco: Never Tobacco comments: vary rare usage Vaping Use Vaping Use: Never used Substance Use Topics Alcohol use: Yes Comment: TWICE YEARLY Drug use: No FAMILY HISTORY: FAMILY HISTORY FAMILY HISTORY Problem Relation Age of Onset Colon Cancer Mother Coronary Artery Disease Father Cancer Brother REVIEW OF SYMPTOMS: The review of systems data was entered by the nurse and reviewed by nm Nursing Notes: Kylie Lares LPN 05/20/2023 3:14 PM Signed REVIEW OF SYSTEMS: General: The patient denies fatigue, denies weight loss, denies weight gain, denies feeling hot, and denies feelings of cold. Eyes: The patient denies glaucoma, denies eye injury/surgery, does not wear glasses or contacts. Ear/Nose/Throat: The patient denies allergies, denies hayfever, denies ear infections, and denies bloody noses. Cardiovascular: The patient denies chest pain, denies heart disease, denies high blood pressure,denies cardiac stent, denies prior heart attack, denies irregular heart beat, denies high cholesterol, denies poor circulation, denies heart failure, other cardiac issues, denies claudication, denies cold feet, denies peripheral arterial stent. Respiratory: The patient denies tuberculosis, denies pneumonia, denies frequent cough, denies pulmonary embolism, denies shortness of breath, and denies coughing up blood. Gastrointestinal: The patient denies difficulty swallowing, denies acid reflux, denies ulcers, denies vomiting, denies jaundice/hepatitis, NOTES gallbladder problems, denies black or tarry stools, denies hemorrhoids, denies bleeding from rectum, denies diverticulitis, denies constipation, denies diarrhea, denies loss of stool control, and NOTES hernias. Kidney/Bladder: The patient deniesdenies kidney stones, denies urine infections, and denies bloody urine. Skin: The patient denies a history of skin cancer, denies bleeding/changing moles, and denies a history of skin rash. Neurologic: The patient denies a history of epilepsy/convulsions, denies headaches, denies head/spinal injuries, and denies stroke/TIA. Psychiatric: The patient denies psychiatric medications, denies depression, and denies voices, denies substance abuse. Endocrine: The patient NOTES thyroid disorders, denies diabetes, and denies hormonal problems. Hematologic: The patient denies a history of bruising, denies bleeding, and denies anemia, denies blood clots. Infections: The patient denies a history of measles and mumps, denies rheumatic fever, and denies sexually transmitted diseases. Musculoskeletal: The patient denies back pain/injury, denies back problems, denies sciatica, NOTES knee/foot trouble, denies arthritis, or denies gout. When was patient's last Mammogram screening? N/A Last Colonoscopy: 2015 Kylie Lares LPN PHYSICAL EXAMINATION: General: The patient is 77 year old male, well nourished, well hydrated in no acute distress. The patient is oriented to time, place, and person. VITALS: Blood pressure 130/68, pulse (!) 58, temperature 36.4 C (97.5 F), height 172.7 cm (5' 8 ), weight 82.4 kg (181 lb 9.6 oz), SpO2 95 %. Body mass index is 27.61 kg/m . HEENT: Normal cephalic, ataumatic, pupils are equally round, sclera are anicteric, mucous membranes are moist, oropharynx is clear. Neck has no masses, asymmetry or lymphadenopathy. Thyroid is unremarkable. Respiratory: Clear to auscultation and percussion. Normal respiratory excursion and pattern. Cardiac: Examination is regular rate and rhythm. Abdominal exam: Soft, nontender, with no palpable masses. No hepatosplenomegaly. No palpable hernias. Rectal exam: exam deferred Extremities: no clubbing, cyanosis or edema. No adenopathy. Other: LABORATORY VALUES: As Noted RADIOLOGIC STUDIES: As Noted Assessment IMPRESSION: No palpable inguinal hernias, rectal bleeding with family history of colon cancer PLAN: I plan to perform lower endoscopy. We discussed the risks and benefits of the planned endoscopy. I have informed the patient that complications can occur including failure to complete the endoscopy and perforation. The patient had the opportunity to ask questions concerning the planned endoscopy. My staff has also explained the procedure to the patient in understandable terms and has given the patient printed material concerning the procedure. The patient freely consents to surgery. I plan to use golytely bowel preparation for endoscopy Diagnoses: (K62.5) Rectal bleeding (primary encounter diagnosis) (R19.8) Change in bowel function (R10.32) Left inguinal pain (Z98.890, Z87.19) History of hernia repair My findings have been communicated to Lou Singh MD via shared medical record. This note will be forwarded to Lou Singh MD. Return to Clinic: The patient is instructed to follow-up with me after the testing has been completed. Jey Griffith MD documented in this encounter [facility] 05-21-2023 Miscellaneous Notes Patient informed and verbalized understanding. Sonifabian Lynch Patient never picked up my chart note I sent him. Please let him know below. Mag is ok on recheck. Kidney function is stable. Is in the same ballpark it has been for a number of years. No changes needed. Dr Hammond documented in this encounter [facility] 05-20-2023 Note HNO ID: [id number] Author: Jey Griffith MD Service: ? Author Type: Physician Type: Progress Notes Filed: 05/20/2023 8:39 PM Note Text: HISTORY AND PHYSICAL Galen Byers 1945 REFERRING PHYSICIAN: Lou Ramos MD CHIEF COMPLAINT: Consult (LEFT INGUINAL HERNIA) HPI: The patient is a 77 year old male referred for endoscopy. Galen notes that he has had constipation. He notes harder stools this is somewhat improved with Metamucil. He is now having a bowel movement approximately daily. The patient also notes blood per rectum. This seemed to start prior to his constipation issues. He has had this episodically for 1 year. He is uncertain whether the blood is mixed within the stool. The patient notes no history of upper GI complaints. Galen has undergone prior endoscopy. I performed colonoscopy in 2016 for rectal bleeding this demonstrated no abnormalities. The patient does relate that he has a maternal history of history of colon cancer and is therefore due for follow-up colonoscopy in any event. The patient also questions whether he is having a recurrence of his hernia. The patient notes left inguinal discomfort when he lifts or walks a lot. He stated he experienced left inguinal pain last week but then noted blood in his urine the following day. He had seen Dr. Lobo at [facility] in the past for these complaints who felt this was related to benign prostatic hypertrophy. She has had 2 previous open inguinal hernia repairs in the past and I performed a bilateral laparoscopic inguinal hernia repair on August 23, 2005 The patient is being seen by me today at the request of Lou Singh MD for my opinion and advice regarding inguinal pain and rectal bleeding with family history of colon cancer. PAST MEDICAL HISTORY Diagnosis Date Diverticulosis of colon (without mention of hemorrhage) Erectile dysfunction 10/12/2013 Family history of colon cancer 12/26/2015 Hyperplasia of prostate Hyperprolactinemia (HCC) HYPERTROPHY PROSTATE WITH OBST 09/03/2005 Hypothyroid INGUINAL HERNIA, BILAT, RECURRENT W/O GANGRENE/OBSTRUCTION 09/01/2005 Personal history of colonic polyps Colon polyps Pituitary adenoma (HCC) Pure hypercholesterolemia PAST SURGICAL HISTORY Procedure Laterality Date CHOLECYSTECTOMY COLONOSCOPY FLX DX W/COLLJ SPEC WHEN PFRMD 2004 Colonoscopy COLONOSCOPY FLX DX W/COLLJ SPEC WHEN PFRMD 12/26/09 Repeat in 5 years (3-2014) KNEE ARTHROSCOPY/SURGERY RPR 1ST INGUN HRNA AGE 4 YRS/> REDUCIBLE Hernia repair, inguinal, recent laparoscopic, had 2 prior hernia repairs on LT SEPTOPLASTY/SUBMUCOUS RESECJ W/WO CARTILAGE GRF Septoplasty TRANSURETHRAL ELEC-SURG PROSTATECTOM 2009 TURP Current Outpatient Medications Medication Sig dutasteride (AVODART) 0.5 mg capsule Take 1 capsule by mouth every afternoon. levothyroxine (SYNTHROID) 50 mcg tablet Take 1 tablet by mouth once daily. Take two pills on Sundays bromocriptine (PARLODEL) 2.5 mg tablet Take 1 tablet by mouth two times a week. lovastatin (MEVACOR) 10 mg tablet Take 1 tablet by mouth daily at bedtime. Fbbjt-2-RSD-EPA-Fish Oil (FISH OIL) 1,000 mg (120 mg-180 mg) cap Take 2 capsules by mouth twice daily. niacin (NIACIN) 500 mg tablet Take 500 mg by mouth daily with breakfast. naproxen sodium (ALEVE) 220 mg tablet Take 1 tablet by mouth as needed. No current facility-administered medications for this visit. ALLERGIES: Lorelco Other] [Other] and Pravachol [Pravastatin Sodium] PERSONAL HISTORY: Social History Tobacco Use Smoking status: Former Types: Cigarettes Quit date: 09/03/1975 Years since quittin.7 Smokeless tobacco: Never Tobacco comments: vary rare usage Vaping Use Vaping Use: Never used Substance Use Topics Alcohol use: Yes Comment: TWICE YEARLY Drug use: No FAMILY HISTORY: FAMILY HISTORY Problem Relation Age of Onset Colon Cancer Mother Coronary Artery Disease Father Cancer Brother REVIEW OF SYMPTOMS: The review of systems data was entered by the nurse and reviewed by me Nursing Notes: ArnaudGabeKylieMAURICIO escalona 05/20/2023 3:14 PM Signed REVIEW OF SYSTEMS: General: The patient denies fatigue, denies weight loss, denies weight gain, denies feeling hot, and denies feelings of cold. Eyes: The patient denies glaucoma, denies eye injury/surgery, does not wear glasses or contacts. Ear/Nose/Throat: The patient denies allergies, denies hayfever, denies ear infections, and denies bloody noses. Cardiovascular: The patient denies chest pain, denies heart disease, denies high blood pressure,denies cardiac stent, denies prior heart attack, denies irregular heart beat, denies high cholesterol, denies poor circulation, denies heart failure, other cardiac issues, denies claudication, denies cold feet, denies peripheral arterial stent. Respiratory: The patient denies tuberculosis, denies pneumonia, denies frequent cough, denies (more content not included)... [facility] 05-20-2023 Instructions Jey Griffith MD - 05/20/2023 8:38 PM EDT Images from the original note were not included. Bowel Preparation Instructions for: Golytely, Nulytely, Trilyte or Colyte (polyethylene glycol 3350 and electrolytes) IF YOU DO NOT FOLLOW THESE DIRECTIONS, YOUR COLONOSCOPY WILL BE CANCELLED. Jaimes Instructions: Your bowel must be empty so that your doctor can clearly view your colon. Follow all of the instructions in this handout EXACTLY as they are written. Do NOT eat any solid food the ENTIRE day before your colonoscopy. Drink only clear liquids. Buy your bowel preparation at least 5 days before your colonoscopy. TRANSPORTATION on the Day of Your Exam A responsible person MUST be present with you at Check In prior to your colonoscopy and REMAIN in the endoscopy area until you are discharged. You are NOT ALLOWED to drive, take a taxi or bus, or leave the Endoscopy Center ALONE. If you do not have a responsible motor pool driver (family member or friend) with you to take you home, your exam cannot be done with sedation and will be cancelled. Please bring a list of all of your current medications, including any Over-the Counter medications with you. Medications If you take insulin, diabetic medications or blood thinners such as Coumadin (warfarin), Plavix (clopidogrel), Ticlid (ticlopidine hydrochloride), Agrylin (anagrelide), Xarelto (Rivaroxaban), Pradaxa (Dabigatran), Eliquis (Apixaban), and Effient (Prasugrel). You MUST call the doctors who orders those medicines for instructions on altering the dosage before your colonoscopy. All other medications should be taken the day of the exam with a sip of water including ASPIRIN. Five (5) Days Before Your Colonoscopy Do NOT take medicines that stop diarrhea - such as Imodium, Kaopectate, or Pepto Bismol. Do NOT take fiber supplements - such as Metamucil, Citrucel, or Perdiem. Do NOT take products that contain iron - such as multi-vitamins (the label lists what is in the products). Do NOT take Vitamin E. Buy the prescription bowel preparation solution at your local pharmacy or drugstore pharmacy. 09/2019 Bowel Preparation Instructions for: Golytely, Nulytely, Trilyte or Colyte (polyethylene glycol 3350 and electrolytes) Three (3) Days Before Your Colonoscopy Do NOT eat high-fiber foods - such as popcorn, beans, seeds (flax, sunflower, quinoa), multigrain bread, nuts, salad/vegetables, or fresh and dried fruit. One (1) Day Before Your Colonoscopy Only drink clear liquids the ENTIRE DAY before your colonoscopy. Do NOT eat any solid foods. Drink at least 8 ounces of clear liquids every hour after waking up. The clear liquids you can drink include: Clear Liquid (NO RED LIQUIDS) DO NOT DRINK Gatorade, Pedialyte or Powerade Clear broth or bouillon Coffee or tea (no milk or non-dairy creamer) Carbonated and non-carbonated soft drinks Guzman-Aid or other fruit flavored drinks Strained fruit juices (no pulp) Jell-O, popsicles, hard candy Water Alcohol Milk or non-dairy creamers Noodles or vegetables in soup Juice with pulp Liquid you cannot see through Do not use tobacco/vaping products The bowel preparation solution will be consumed in two parts. Mix the solution the evening before your colonoscopy and refrigerate before drinking. You may add the flavor pack that came with the bowel preparation. Do NOT add ice, sugar or any other flavorings to the solution. Part 1 At 6:00 PM - Evening before your colonoscopy Drink an 8-oz glass of bowel preparation every 10 minutes for a total of 8 glasses. You may continue to drink clear liquids until midnight. Part 2 On the day of your colonoscopy you may drink clear liquids up to (three) 3 hours before your procedure. 4 1/2 hours before your colonoscopy Drink an 8-oz glass of bowel preparation every 10 minutes for a total of 8 glasses. Fifteen (15) minutes later, drink an 8-oz glass of clear liquids every 15 minutes for a total of 2 glasses. You may continue to drink clear liquids up to (three) 3 hours before your exam. 2 09/2019 documented in this encounter [facility] 05-20-2023 History of Present illness Narrative HISTORY AND PHYSICAL Galen Byers 1945 REFERRING PHYSICIAN: Lou Ramos MD CHIEF COMPLAINT: Consult (LEFT INGUINAL HERNIA) HPI: The patient is a 77 year old male referred for endoscopy. Galen notes that he has had constipation. He notes harder stools this is somewhat improved with Metamucil. He is now having a bowel movement approximately daily. The patient also notes blood per rectum. This seemed to start prior to his constipation issues. He has had this episodically for 1 year. He is uncertain whether the blood is mixed within the stool. The patient notes no history of upper GI complaints. Galen has undergone prior endoscopy. I performed colonoscopy in 2016 for rectal bleeding this demonstrated no abnormalities. The patient does relate that he has a maternal history of history of colon cancer and is therefore due for follow-up colonoscopy in any event. The patient also questions whether he is having a recurrence of his hernia. The patient notes left inguinal discomfort when he lifts or walks a lot. He stated he experienced left inguinal pain last week but then noted blood in his urine the following day. He had seen Dr. Lobo at [facility] in the past for these complaints who felt this was related to benign prostatic hypertrophy. She has had 2 previous open inguinal hernia repairs in the past and I performed a bilateral laparoscopic inguinal hernia repair on August 23, 2005 The patient is being seen by me today at the request of Lou Singh MD for my opinion and advice regarding inguinal pain and rectal bleeding with family history of colon cancer. PAST MEDICAL HISTORY Diagnosis Date Diverticulosis of colon (without mention of hemorrhage) Erectile dysfunction 10/12/2013 Family history of colon cancer 12/26/2015 Hyperplasia of prostate Hyperprolactinemia (HCC) \ HYPERTROPHY PROSTATE WITH OBST 09/03/2005 Hypothyroid INGUINAL HERNIA, BILAT, RECURRENT W/O GANGRENE/OBSTRUCTION 09/01/2005 Personal history of colonic polyps Colon polyps Pituitary adenoma (HCC) Pure hypercholesterolemia PAST SURGICAL HISTORY Procedure Laterality Date CHOLECYSTECTOMY COLONOSCOPY FLX DX W/COLLJ SPEC WHEN PFRMD 2004 Colonoscopy COLONOSCOPY FLX DX W/COLLJ SPEC WHEN PFRMD 12/26/09 Repeat in 5 years (-2014) KNEE ARTHROSCOPY/SURGERY RPR 1ST INGUN HRNA AGE 4 YRS/> REDUCIBLE Hernia repair, inguinal, recent laparoscopic, had 2 prior hernia repairs on LT SEPTOPLASTY/SUBMUCOUS RESECJ W/WO CARTILAGE GRF Septoplasty TRANSURETHRAL ELEC-SURG PROSTATECTOM 2009 TURP Current Outpatient Medications Medication Sig dutasteride (AVODART) 0.5 mg capsule Take 1 capsule by mouth every afternoon. levothyroxine (SYNTHROID) 50 mcg tablet Take 1 tablet by mouth once daily. Take two pills on Sundays bromocriptine (PARLODEL) 2.5 mg tablet Take 1 tablet by mouth two times a week. lovastatin (MEVACOR) 10 mg tablet Take 1 tablet by mouth daily at bedtime. Iqial-3-HRP-EPA-Fish Oil (FISH OIL) 1,000 mg (120 mg-180 mg) cap Take 2 capsules by mouth twice daily. niacin (NIACIN) 500 mg tablet Take 500 mg by mouth daily with breakfast. naproxen sodium (ALEVE) 220 mg tablet Take 1 tablet by mouth as needed. No current facility-administered medications for this visit. ALLERGIES: [place]orel[place] Other] [Other] and Pravachol [Pravastatin Sodium] PERSONAL HISTORY: Social History Tobacco Use Smoking status: Former Types: Cigarettes Quit date: 09/03/1975 Years since quittin.7 Smokeless tobacco: Never Tobacco comments: vary rare usage Vaping Use Vaping Use: Never used Substance Use Topics Alcohol use: Yes Comment: TWICE YEARLY Drug use: No FAMILY HISTORY: FAMILY HISTORY Problem Relation Age of Onset Colon Cancer Mother Coronary Artery Disease Father Cancer Brother REVIEW OF SYMPTOMS: The review of systems data was entered by the nurse and reviewed by me Nursing Notes: Kylie Lares LPN 05/20/2023 3:14 PM Signed REVIEW OF SYSTEMS: General: The patient denies fatigue, denies weight loss, denies weight gain, denies feeling hot, and denies feelings of cold. Eyes: The patient denies glaucoma, denies eye injury/surgery, does not wear glasses or contacts. Ear/Nose/Throat: The patient denies allergies, denies hayfever, denies ear infections, and denies bloody noses. Cardiovascular: The patient denies chest pain, denies heart disease, denies high blood pressure,denies cardiac stent, denies prior heart attack, denies irregular heart beat, denies high cholesterol, denies poor circulation, denies heart failure, other cardiac issues, denies claudication, denies cold feet, denies peripheral arterial stent. Respiratory: The patient denies tuberculosis, denies pneumonia, denies frequent cough, denies pulmonary embolism, denies shortness of breath, and denies coughing up blood. Gastrointestinal: The patient denies difficulty swallowing, denies acid reflux, denies ulcers, denies vomiting, denies jaundice/hepatitis, NOTES gallbladder problems, denies black or tarry stools, denies hemorrhoids, denies bleeding from rectum, denies diverticulitis, denies constipation, denies diarrhea, denies loss of stool control, and NOTES hernias. Kidney/Bladder: The patient deniesdenies kidney stones, denies urine infections, and denies bloody urine. Skin: The patient denies a history of skin cancer, denies bleeding/changing moles, and denies a history of skin rash. Neurologic: The patient denies a history of epilepsy/convulsions, denies headaches, denies head/spinal injuries, and denies stroke/TIA. Psychiatric: The patient denies psychiatric medications, denies depression, and denies voices, denies substance abuse. Endocrine: The patient NOTES thyroid disorders, denies diabetes, and denies hormonal problems. Hematologic: The patient denies a history of bruising, denies bleeding, and denies anemia, denies blood clots. Infections: The patient denies a history of measles and mumps, denies rheumatic fever, and denies sexually transmitted diseases. Musculoskeletal: The patient denies back pain/injury, denies back problems, denies sciatica, NOTES knee/foot trouble, denies arthritis, or denies gout. When was patient's last Mammogram screening? N/A Last Colonoscopy: 2015 Kylie Lares LPN PHYSICAL EXAMINATION: General: The patient is 77 year old male, well nourished, well hydrated in no acute distress. The patient is oriented to time, place, and person. VITALS: Blood pressure 130/68, pulse (!) 58, temperature 36.4 C (97.5 F), height 172.7 cm (5' 8 ), weight 82.4 kg (181 lb 9.6 oz), SpO2 95 %. Body mass index is 27.61 kg/m . HEENT: Normal cephalic, ataumatic, pupils are equally round, sclera are anicteric, mucous membranes are moist, oropharynx is clear. Neck has no masses, asymmetry or lymphadenopathy. Thyroid is unremarkable. Respiratory: Clear to auscultation and percussion. Normal respiratory excursion and pattern. Cardiac: Examination is regular rate and rhythm. Abdominal exam: Soft, nontender, with no palpable masses. No hepatosplenomegaly. No palpable hernias. Rectal exam: exam deferred Extremities: no clubbing, cyanosis or edema. No adenopathy. Other: LABORATORY VALUES: As Noted RADIOLOGIC STUDIES: As Noted Assessment IMPRESSION: No palpable inguinal hernias, rectal bleeding with family history of colon cancer PLAN: I plan to perform lower endoscopy. We discussed the risks and benefits of the planned endoscopy. I have informed the patient that complications can occur including failure to complete the endoscopy and perforation. The patient had the opportunity to ask questions concerning the planned endoscopy. My staff has also explained the procedure to the patient in understandable terms and has given the patient printed material concerning the procedure. The patient freely consents to surgery. I plan to use golytely bowel preparation for endoscopy Diagnoses: (K62.5) Rectal bleeding (primary encounter diagnosis) (R19.8) Change in bowel function (R10.32) Left inguinal pain (Z98.890, Z87.19) History of hernia repair My findings have been communicated to Lou Singh MD via shared medical record. This note will be forwarded to Lou Singh MD. Return to Clinic: The patient is instructed to follow-up with me after the testing has been completed. Jey Griffith MD documented in this encounter [facility] 05-20-2023 Nurse Note REVIEW OF SYSTEMS: General: The patient denies fatigue, denies weight loss, denies weight gain, denies feeling hot, and denies feelings of cold. Eyes: The patient denies glaucoma, denies eye injury/surgery, does not wear glasses or contacts. Ear/Nose/Throat: The patient denies allergies, denies hayfever, denies ear infections, and denies bloody noses. Cardiovascular: The patient denies chest pain, denies heart disease, denies high blood pressure,denies cardiac stent, denies prior heart attack, denies irregular heart beat, denies high cholesterol, denies poor circulation, denies heart failure, other cardiac issues, denies claudication, denies cold feet, denies peripheral arterial stent. Respiratory: The patient denies tuberculosis, denies pneumonia, denies frequent cough, denies pulmonary embolism, denies shortness of breath, and denies coughing up blood. Gastrointestinal: The patient denies difficulty swallowing, denies acid reflux, denies ulcers, denies vomiting, denies jaundice/hepatitis, NOTES gallbladder problems, denies black or tarry stools, denies hemorrhoids, denies bleeding from rectum, denies diverticulitis, denies constipation, denies diarrhea, denies loss of stool control, and NOTES hernias. Kidney/Bladder: The patient deniesdenies kidney stones, denies urine infections, and denies bloody urine. Skin: The patient denies a history of skin cancer, denies bleeding/changing moles, and denies a history of skin rash. Neurologic: The patient denies a history of epilepsy/convulsions, denies headaches, denies head/spinal injuries, and denies stroke/TIA. Psychiatric: The patient denies psychiatric medications, denies depression, and denies voices, denies substance abuse. Endocrine: The patient NOTES thyroid disorders, denies diabetes, and denies hormonal problems. Hematologic: The patient denies a history of bruising, denies bleeding, and denies anemia, denies blood clots. Infections: The patient denies a history of measles and mumps, denies rheumatic fever, and denies sexually transmitted diseases. Musculoskeletal: The patient denies back pain/injury, denies back problems, denies sciatica, NOTES knee/foot trouble, denies arthritis, or denies gout. When was patient's last Mammogram screening? N/A Last Colonoscopy: 2015 Kylie Lares LPN documented in this encounter [facility] 05-11-2023 Miscellaneous Notes Pt aware of below information. He was going to talk to spouse about PT but will be in for labs next week when he is able. Left message with to return call His labs show he looks a little dry. Make sure pushing adequate fluids. His mag if anything is borderline high. If he is taking any mag supplements stop them. His xray shows deg disc changes. Can consider physical therapy. It does show what may be a stone in his kidney. Doubt it is significant but with his urinary issues, forward it to his urologist. Recheck bmp and mag in one week. documented in this encounter [facility] 05-10-2023 Note HNO ID: [id number] Author: Libia Mcdonald RT(R) Service: Radiology Author Type: Technologist Type: Progress Notes Filed: 05/10/2023 9:53 AM Note Text: Radiology Service Progress Note PATIENT NAME: Galen Byers DATE OF SERVICE: May 10, 2023 TIME: 9:43 AM PATIENT IDENTITY VERIFICATION COMPLETED USING TWO (2) IDENTIFIERS: Name and Date of confirmed by patient verbally. FALL SCREENING: Has the patient had 2 falls in the last year or 1 fall with injury or currently using an Ambulatory Assistive Device (Walker, Cane, Wheelchair, Crutches, etc.)? No PATIENT GENDER DATA: Male PATIENT RELEVANT IMPLANT DATA REVIEWED: Yes RADIOLOGY DEPARTMENT: General X-ray: Exam(s) Completed: Spine X-Ray(s): Lumbar AP / LAT / L5-S1 PERIPHERAL IV DATA: Not applicable SIGNED BY: RT Yosi(R) May 10, 2023 9:43 AM [facility] 05-10-2023 Note HNO ID: [id number] Author: Lou Ramos MD Service: ? Author Type: Physician Type: Progress Notes Filed: 05/10/2023 1:04 PM Note Text: Patient presents with: Yearly Exam HPI: Patient presents today for office visit for annual. Not wellness. Has not been seen since 2019. Has a very large number of complaints. HLD: Continues on Lovastatin 10 mg daily No side effects No myalgias. No chest pain or shortness of breath. THYROID: Continues on Levothyroxine 50 mcg No hair or skin changes No energy changes Follows with Derm Recently saw Urology in March. Started on Dutasteride. No urinary issues. Had cystoscopy for hematuria. They think it is from his prostate. No bruising. No recent blood in the stools. Did have some six month ago at least. Has noted some constipation in the last year. Seeing Dr. Emily Cruz. Due for appt in Jun. No issues. Continues on Bromocriptine for pituitary tumor. Requests having his magnesium checked. His son passes away. Feels he is dealing ok with it. Declines meds or counseling. No falls or memory issues. Has chronic left sided back pain for six months. No trauma. No leg pain. No numbness or weakness. Has a history of hernia repair x 3 on his left. Has had pain for a few years. Feels superficial No swelling or redness. No masses. Has hoarseness and drainage since covid. Has been there since Covid in September. MEDICATIONS: Current Outpatient Medications Medication Sig dutasteride (AVODART) 0.5 mg capsule Take 1 capsule by mouth every afternoon. levothyroxine (SYNTHROID) 50 mcg tablet Take 1 tablet by mouth once daily. Take two pills on Sundays bromocriptine (PARLODEL) 2.5 mg tablet Take 1 tablet by mouth two times a week. lovastatin (MEVACOR) 10 mg tablet Take 1 tablet by mouth daily at bedtime. Tgyjf-9-ZPO-EPA-Fish Oil (FISH OIL) 1,000 mg (120 mg-180 mg) cap Take 2 capsules by mouth twice daily. niacin (NIACIN) 500 mg tablet Take 500 mg by mouth daily with breakfast. naproxen sodium (ALEVE) 220 mg tablet Take 1 tablet by mouth as needed. No current facility-administered medications for this visit. ALLERGIES: ALLERGIES Allergen Reactions Lorelco Other] [Oth* Unknown Pravachol [Pravasta* PAST MEDICAL HISTORY Diagnosis Date Diverticulosis of colon (without mention of hemorrhage) Erectile dysfunction 10/12/2013 Family history of colon cancer 12/26/2015 Hyperplasia of prostate Hyperprolactinemia (HCC) HYPERTROPHY PROSTATE WITH OBST 09/03/2005 Hypothyroid INGUINAL HERNIA, BILAT, RECURRENT W/O GANGRENE/OBSTRUCTION 09/01/2005 Personal history of colonic polyps Colon polyps Pituitary adenoma (HCC) Pure hypercholesterolemia PAST SURGICAL HISTORY Procedure Laterality Date CHOLECYSTECTOMY COLONOSCOPY FLX DX W/COLLJ SPEC WHEN PFRMD 2004 Colonoscopy COLONOSCOPY FLX DX W/COLLJ SPEC WHEN PFRMD 12/26/09 Repeat in 5 years (3-2014) KNEE ARTHROSCOPY/SURGERY RPR 1ST INGUN HRNA AGE 4 YRS/> REDUCIBLE Hernia repair, inguinal, recent laparoscopic, had 2 prior hernia repairs on LT SEPTOPLASTY/SUBMUCOUS RESECJ W/WO CARTILAGE GRF Septoplasty TRANSURETHRAL ELEC-SURG PROSTATECTOM 2009 TURP FAMILY HISTORY Problem Relation Age of Onset Colon Cancer Mother Coronary Artery Disease Father Cancer Brother Social History Tobacco Use Smoking status: Former Types: Cigarettes Quit date: 09/03/1975 Years since quittin.7 Smokeless tobacco: Never Tobacco comments: vary rare usage Vaping Use Vaping Use: Never used Substance Use Topics Alcohol use: Yes Comment: TWICE YEARLY Drug use: No Reviewed current medications, allergies, past medical history, surgical history, family history and social history today. REVIEW OF SYSTEMS All other reviewed and negative other than HPI. HEALTH MAINTENANCE: Reviewed health maintenance issues today and recommended the following in detail. HEPATITIS C SCREENING Never done SHINGRIX VACCINE(1 of 2) Never done COVID-19 VACCINE(7 - Pfizer series) due on 09/25/2022 ADVANCE DIRECTIVE DISCUSSION - is his dpoa DEPRESSION ASSESSMENT Never done ANNUAL PCP TEAM CHRONIC DISEASE VISIT due on 05/05/2023 VITALS: BP 120/76 Pulse (!) 54 Ht 172.7 cm (5' 8 ) Wt 79.7 kg (175 lb 12.8 oz) SpO2 96% BMI 26.73 kg/m? Last 4 Encounter Wt Readings: Date: Wt: 05/05/2022 81.2 kg (179 lb) 12/15/2021 85.2 kg (187 lb 12.8 oz) 04/09/2021 83.5 kg (184 lb) 01/15/2021 84.1 kg (185 lb 6.4 oz) PHYSICAL EXAMINATION: General appearance: Well appearing, alert, in no acute distress, well-hydrated, well nourished. Skin: Skin color, texture, turgor normal, no suspicious rashes or lesions Head: Normocephalic, no masses, lesions, tenderness or abnormalities Eyes: Anicteric sclera. Pupils are equally round and reactive to light. Extraocular movements are intact. Ears: External ears normal, canals clear Nose/Sinuses: Nares normal, septum midline (more content not included)... [facility] 05-10-2023 History of Present illness Narrative Patient presents with: Yearly Exam HPI: Patient presents today for office visit for annual. Not wellness. Has not been seen since 2019. Has a very large number of complaints. HLD: Continues on Lovastatin 10 mg daily No side effects No myalgias. No chest pain or shortness of breath. THYROID: Continues on Levothyroxine 50 mcg No hair or skin changes No energy changes Follows with Derm Recently saw Urology in March. Started on Dutasteride. No urinary issues. Had cystoscopy for hematuria. They think it is from his prostate. No bruising. No recent blood in the stools. Did have some six month ago at least. Has noted some constipation in the last year. Seeing Dr. Emily Cruz. Due for appt in Jun. No issues. Continues on Bromocriptine for pituitary tumor. Requests having his magnesium checked. His son passes away. Feels he is dealing ok with it. Declines meds or counseling. No falls or memory issues. Has chronic left sided back pain for six months. No trauma. No leg pain. No numbness or weakness. Has a history of hernia repair x 3 on his left. Has had pain for a few years. Feels superficial No swelling or redness. No masses. Has hoarseness and drainage since cov. Has been there since [facility] in September. MEDICATIONS: Current Outpatient Medications Medication Sig dutasteride (AVODART) 0.5 mg capsule Take 1 capsule by mouth every afternoon. levothyroxine (SYNTHROID) 50 mcg tablet Take 1 tablet by mouth once daily. Take two pills on Sundays bromocriptine (PARLODEL) 2.5 mg tablet Take 1 tablet by mouth two times a week. lovastatin (MEVACOR) 10 mg tablet Take 1 tablet by mouth daily at bedtime. Bzdlt-5-APQ-EPA-Fish Oil (FISH OIL) 1,000 mg (120 mg-180 mg) cap Take 2 capsules by mouth twice daily. niacin (NIACIN) 500 mg tablet Take 500 mg by mouth daily with breakfast. naproxen sodium (ALEVE) 220 mg tablet Take 1 tablet by mouth as needed. No current facility-administered medications for this visit. ALLERGIES: ALLERGIES Allergen Reactions Lorelco Other] [Oth* Unknown Pravachol [Pravasta* PAST MEDICAL HISTORY Diagnosis Date Diverticulosis of colon (without mention of hemorrhage) Erectile dysfunction 10/12/2013 Family history of colon cancer 12/26/2015 Hyperplasia of prostate Hyperprolactinemia (HCC) \ HYPERTROPHY PROSTATE WITH OBST 09/03/2005 Hypothyroid INGUINAL HERNIA, BILAT, RECURRENT W/O GANGRENE/OBSTRUCTION 09/01/2005 Personal history of colonic polyps Colon polyps Pituitary adenoma (HCC) Pure hypercholesterolemia PAST SURGICAL HISTORY Procedure Laterality Date CHOLECYSTECTOMY COLONOSCOPY FLX DX W/COLLJ SPEC WHEN PFRMD 2004 Colonoscopy COLONOSCOPY FLX DX W/COLLJ SPEC WHEN PFRMD 12/26/09 Repeat in 5 years (-2014) KNEE ARTHROSCOPY/SURGERY RPR 1ST INGUN HRNA AGE 4 YRS/> REDUCIBLE Hernia repair, inguinal, recent laparoscopic, had 2 prior hernia repairs on LT SEPTOPLASTY/SUBMUCOUS RESECJ W/WO CARTILAGE GRF Septoplasty TRANSURETHRAL ELEC-SURG PROSTATECTOM 2009 TURP FAMILY HISTORY Problem Relation Age of Onset Colon Cancer Mother Coronary Artery Disease Father Cancer Brother Social History Tobacco Use Smoking status: Former Types: Cigarettes Quit date: 09/03/1975 Years since quittin.7 Smokeless tobacco: Never Tobacco comments: vary rare usage Vaping Use Vaping Use: Never used Substance Use Topics Alcohol use: Yes Comment: TWICE YEARLY Drug use: No Reviewed current medications, allergies, past medical history, surgical history, family history and social history today. REVIEW OF SYSTEMS All other reviewed and negative other than HPI. HEALTH MAINTENANCE: Reviewed health maintenance issues today and recommended the following in detail. HEPATITIS C SCREENING Never done SHINGRIX VACCINE(1 of 2) Never done COVID-19 VACCINE(7 - Pfizer series) due on 09/25/2022 ADVANCE DIRECTIVE DISCUSSION - is his dpoa DEPRESSION ASSESSMENT Never done ANNUAL PCP TEAM CHRONIC DISEASE VISIT due on 05/05/2023 VITALS: BP 120/76 Pulse (!) 54 Ht 172.7 cm (5' 8 ) Wt 79.7 kg (175 lb 12.8 oz) SpO2 96% BMI 26.73 kg/m Last 4 Encounter Wt Readings: Date: Wt: 05/05/2022 81.2 kg (179 lb) 12/15/2021 85.2 kg (187 lb 12.8 oz) 04/09/2021 83.5 kg (184 lb) 01/15/2021 84.1 kg (185 lb 6.4 oz) PHYSICAL EXAMINATION: General appearance: Well appearing, alert, [...] adenopathy; thyroid symmetric, normal size, no bruits BACK: Normal curvature of spine. No spine tenderness. Straight leg test negative. Deep tendon reflexes 2+/4 at patellas. Normal lower extremity strength. Negative hip exam. Groin non tender. No masses. Lungs: Lungs clear to auscultation. No wheezing, rhonchi, rales Heart: RRR without murmur, gallop, or rubs. No ectopy Abdomen: Normal abdominal exam, Abdomen soft, non-tender. Bowel sounds normal. No masses, organomegaly Extremities: No deformities, edema, skin discoloration, clubbing or cyanosis. Good capillary refill. Musculoskeletal: No joint swelling, deformity, or tenderness Peripheral pulses: Normal Neuro: Negative. ASSESSMENT/PLAN: 1. Hyperprolactinemia (HCC) - ICD9: 253.1, ICD10: E22.1 (primary diagnosis) - check labs and see endo - CBC + DIFF - PROLACTIN BLD - MAGNESIUM BLD 2. Acquired hypothyroidism - ICD9: 244.9, ICD10: E03.9 - follow labs. - TSH BLD - T4 FREE/FREE THYROX - MAGNESIUM BLD 3. Mixed hyperlipidemia - ICD9: 272.2, ICD10: E78.2 - Control undetermined, due for labs - Counseled on healthy diet and regular exercise - LIPID PANEL BASIC - COMP METABOLIC PANEL - MAGNESIUM BLD 4. Benign prostatic hyperplasia without lower urinary tract symptoms - ICD9: 600.00, ICD10: N40.0 - per urology 5. Gross hematuria - ICD9: 599.71, ICD10: R31.0 - check labs and see urology - PROTHROMBIN TIME/PT - ACTIVATED PTT 6. Change in bowel function - ICD9: 787.99, ICD10: R19.8 - CONSULT TO GENERAL SURGERY 7. Need for hepatitis C screening test - ICD9: V73.89, ICD10: Z11.59 - HEPATITIS C ANTIBODY IA WITH CONFIRMATION 8. History of lumbar spine x-ray - ICD9: V15.89, ICD10: Z92.89 - XR LUMBAR GENERAL 3V AP/LAT/L5-S1 9. Left inguinal pain - ICD9: 789.04, ICD10: R10.32 - CONSULT TO GENERAL SURGERY 10. History of hernia repair - ICD9: V45.89, ICD10: Z98.890, Z87.19 - CONSULT TO GENERAL SURGERY 11. Hoarseness - ICD9: 784.42, ICD10: R49.0 - CONSULT TO ENT Lou Ramos MD documented in this encounter [facility] 01-04-2023 Note Patient Outreach (NE TNAV) MODESTAGALEN ([id number]) 1945 M Date Time Provider Department 01/04/23 FAYE BISHOP During your visit today, we recorded the following information about you: Faye Bishop MA 01/04/2023 1:33 PM Signed POPULATION HEALTH NAVIGATION OUTREACH Action/ NO ANSWER [employer] MESSAGE SENT D35.2 - Prolactinoma (HCC) E22.1 - Hyperprolactinemia (HCC) - [id number] Last Billed 05/05/2022 ANNUAL MEDICARE WELLNESS EXAM Patient Identified by Name and : NO Outreach Outcome/Action Unable to reach patient: Phone number not valid / voicemail full [employer] message sent Did you use a PCP flex slot to schedule this appointment? N/A Reason for Outreach Care Gap or Scheduling/Wellness visits Payer: Payor: MEDICARE / Plan: MEDICARE A AND B / Product Type: Medicare / Care Gap Reviewed:: Annual Wellness visit Reminder: Reminder note to check Health Maintenance for items below Health Maintenance items due: HEPATITIS C SCREENING Never done SHINGRIX VACCINE(1 of 2) Never done ADVANCE DIRECTIVE DISCUSSION Never done DEPRESSION ASSESSMENT Never done Navigation Signature: Faye Bishop MA January 04, 2023 7:52 AM Allergies As of Date: 01/04/2023 Noted Allergy Reaction Lorelco Other] [Other] 04/13/2005 16 - Unknown PRAVACHOL (PRAVASTATIN SODIUM) 04/13/2005 Date Reviewed: 05/05/2022 Reviewed by: Chirag Rosario LPN - Fully Assessed Reason for Visit: Population Health Navigation Outreach [3910] Cmt: HCC CARE GAP Prescriptions as of 01/04/2023 - bromocriptine (PARLODEL) 2.5 mg tablet Take 1 tablet by mouth two times a week. - lovastatin (MEVACOR) 10 mg tablet Take 1 tablet by mouth daily at bedtime. - levothyroxine (SYNTHROID) 50 mcg tablet Take 1 tablet by mouth once daily. Take two pills on Sundays - Mbuvg-0-WSN-EPA-Fish Oil (FISH OIL) 1,000 mg (120 mg-180 mg) cap Take 2 capsules by mouth twice daily. - niacin (NIACIN) 500 mg tablet Take 500 mg by mouth daily with breakfast. - naproxen sodium (ALEVE) 220 mg tablet Take 1 tablet by mouth as needed. Problem List As Of Date 01/04/2023 Noted Resolved Mixed hyperlipidemia [E78.2] 08/06/2008 Prolactinoma [D35.2] 07/28/2010 Erectile dysfunction [N52.9] 10/12/2013 Hypothyroidism [E03.9] 10/20/2013 Family history of colon cancer [Z80.0] 12/26/2015 12/21/2016 Rectal bleeding [K62.5] 12/26/2015 12/21/2016 Benign prostatic hyperplasia without lower urin*03/28/2018 Hyperprolactinemia (HCC) [E22.1] 01/16/2021 Strength loss of [R53.1] 05/26/2022 Encounter Status:Closed by FAYE BISHOP on 01/04/23 [facility] 01-04-2023 Note HNO ID: [id number] Author: Faye Bishop MA Service: ? Author Type: Concreting Supervisor Type: Progress Notes Filed: 01/04/2023 1:33 PM Note Text: POPULATION HEALTH NAVIGATION OUTREACH Action/ NO ANSWER [employer] MESSAGE SENT D35.2 - Prolactinoma (HCC) E22.1 - Hyperprolactinemia (HCC) - [id number] Last Billed 05/05/2022 ANNUAL MEDICARE WELLNESS EXAM Patient Identified by Name and : NO Outreach Outcome/Action Unable to reach patient: Phone number not valid / voicemail full [employer] message sent Did you use a PCP flex slot to schedule this appointment? N/A Reason for Outreach Care Gap or Scheduling/Wellness visits Payer: Payor: MEDICARE / Plan: MEDICARE A AND B / Product Type: Medicare / Care Gap Reviewed:: Annual Wellness visit Reminder: Reminder note to check Health Maintenance for items below Health Maintenance items due: HEPATITIS C SCREENING Never done SHINGRIX VACCINE(1 of 2) Never done ADVANCE DIRECTIVE DISCUSSION Never done DEPRESSION ASSESSMENT Never done Navigation Signature: Faye Bishop MA January 04, 2023 7:52 AM [facility] 01-04-2023 History of Present illness Narrative POPULATION HEALTH NAVIGATION OUTREACH Action/I NO ANSWER [employer] MESSAGE SENT D35.2 - Prolactinoma (HCC) E22.1 - Hyperprolactinemia (HCC) - [id number] Last Billed 05/05/2022 ANNUAL MEDICARE WELLNESS EXAM Patient Identified by Name and : NO Outreach Outcome/Action Unable to reach patient: Phone number not valid / voicemail full [employer] message sent Did you use a PCP flex slot to schedule this appointment? N/A Reason for Outreach Care Gap or Scheduling/Wellness visits Payer: Payor: MEDICARE / Plan: MEDICARE A AND B / Product Type: Medicare / Care Gap Reviewed:: Annual Wellness visit Reminder: Reminder note to check Health Maintenance for items below Health Maintenance items due: HEPATITIS C SCREENING Never done SHINGRIX VACCINE(1 of 2) Never done ADVANCE DIRECTIVE DISCUSSION Never done DEPRESSION ASSESSMENT Never done Navigation Signature: Faye Bishop MA January 04, 2023 7:52 AM documented in this encounter [facility] 12-25-2022 Miscellaneous Notes Patient phones requesting refills as follows: Requested Prescriptions Pending Prescriptions Disp Refills bromocriptine (PARLODEL) 2.5 mg tablet 24 tablet 3 Sig: Take 1 tablet by mouth two times a week. Please review and advise. Marely Massey MA documented in this encounter [facility] 05-26-2022 History of Present illness Narrative Episode Visit Count: 1 Therapist That Will Oversee The Plan Of Care: Martina Miguel Start of Care Date: 05/26/22 Onset Date: 05/26/21 Plan of Care Certification Date: 05/26/22 Next Certification Due Date: 07/07/22 Patient Identified by Name and Date of : Yes REHABILITATION AND SPORTS THERAPY PHYSICAL THERAPY EVALUATION PLAN OF CARE: Assessment: Galen Byers presents with diagnosis of strength loss that interferes with lifting;squatting . He presents with impairments in ADL's, independence in exercise, patient reported outcome measures, and strength . Prognosis for therapy is Excellent due to: current objective clinical presentation;good overall health status . He will benefit from skilled therapy services to meet the goals established for this plan of care as noted below. Goals for Episode of Care: created on 05/26/22 through 07/07/22 Pt. Will be able to lift and carry x2 #20 DB from the floor x80 ft without cues for postural correction or body mechanics. Lares in home exercise program. Patient will improve 5 time sit to stand to demonstrate improvement in functional lower extremity strength. Patient Goals: independent with functional strengthening program. Planned Interventions, Frequency, and Duration: Current Frequency: 1x/week Duration: 6 weeks Total Number of Visits Planned: 6 Planned Treatment Interventions: Therapeutic exercise (25392);Neuromuscular re-education (99372);Therapeutic activities (60975);Self-residential management (54287);Gait Training (89048);Patient/Family/Caregiver Education PLAN FOR NEXT VISIT: Progress functional strengthening as tolerated. Patient demonstrates good understanding of plan of care and treatment. The above goals and plan of care were discussed and agreed upon by patient/family. SUBJECTIVE: Galen Byers is a 76 year old male seen today for for decreased functional strength without specific injury or illness. Pt. attributes this to just old age. . Pt. reports that he was sent to PT by referring provider to attend x1 PT visit to recieve guidance on starting a full body general strengthening program with his equipment at home. Pt. denies pain grossly with the exception of occasional B knee pain. Denies B knee symptoms currently at rest and he is able to complete all ADLs witout increased symptoms. Pt. does not have any specific limitations or functional goals. He states he just wants to make sure he does exercises correctly. Patient Goals: independent with functional strengthening program. Functional Limitations: lifting;squatting Prior Level of Function: Independent without limitations Relevant History Preferred Language: Mohawk Employment: Retired Hobbies / Interests: farming Intake Information: Prescription present Previous Treatment: Self prescribed exercises Falls Interview: No positive findings with falls interview Red Flags Vertebral Fracture Red Flags: Age >70 Vertebral Fracture Clinical Reasoning: Proceed with caution due to the above (1-2) risk factors Abdominal Aortic Aneurysm Red Flags: Age >60 Abdominal Aortic Aneurysm Clinical Reasoning: Proceed with caution Cancer Red Flags: Age >50 or <20 Cancer Clinical Reasoning: Proceed with caution Infection Clinical Reasoning: No identified risk factors. Cauda Equina Syndrome Clinical Reasoning: No identified risk factors. Red Flags - Cervical Cancer Red Flags: Age >50 or <20 Cancer Clinical Reasoning: Proceed with caution Infection Clinical Reasoning: No identified risk factors. Spine History Pain is Worse Sometimes: Lying Pain is Better Always: Rest Sleep Affected by Pain: Not affected by pain Pain: Pain Pain Level: 0 Pain Location: Knee - Right;Knee - Left Description: (pt. describes current symptoms as normal ) Post Treatment Pain Post Treatment Pain Level: 0 Post Treatment Pain Location: Knee - Left;Knee - Right PROMIS Scales Higher is Better 10/25/2019 04/16/2020 GH Physical - Score 54.1 50.8 GH Physical - Percentile 66 % 53 % GH Mental - Score 50.8 50.8 GH Mental - Percentile 53 % 53 % T-scores: mean of general population = 50. 5 points is clinically meaningfully difference Percentiles provide an indication of how the patient's score ranks in relation to the general population. Higher percentile rankings indicate better function/quality of life. 50th percentile is the average of the general population and indicates half of respondents had a worse score. T-scores: mean of general population = 50. 5 points is clinically meaningfully difference Percentiles provide an indication of how the patient's score ranks in relation to the general population. Higher percentile rankings indicate better function/quality of life. 50th percentile is the average of the general population and indicates half of respondents had a worse score. OBJECTIVE MEASURES WITH LEVEL OF FUNCTION: Cognition Cognition: Follows Commands Posture / Alignment Posture: Good Sitting Posture: Good Sensation - Lower Extremity LE Light Touch Sensation: Grossly Intact Sensation - Lumbar Sensation: Grossly Intact Lumbar Spine AROM Lumbar Flexion: Normal Lumbar Extension: Normal Lumbar R Side-Bend: Normal Lumbar L Side-Bend: Normal Lumbar R Rotation: Normal Lumbar L Rotation: Normal Lumbar Spine AROM Comments: denies symptoms Static Testing - Lumbar Sit Erect: no effect Stand Erect: no effect LE AROM R LE AROM: WNL grossly without symptoms L LE AROM: WNL grossly without symptoms R Knee Extension: 0 Degrees L Knee Extension: 0 Degrees LE Flexibility Flexibility: Hamstring Flexibility R Hamstring Flexibility: WNL L Hamstring Flexibility: WNL LE Strength R LE Strength: no myotomal weakness observed L LE Strength: no myotomal weakness observed Functional Strength Functional Strength: Sit<>stand;Lunge;Step up;Step down Sit/Stand: without use of BUE Gait Gait: Independent Gait Distance (feet): unremarkable Gait Device: None Functional Performance Test Results 30 Second Chair Stand Test: 10 reps (no onset of symptoms, without UE support) Education: Education Learning Preferences: Explanation;Performance;Printed Materials;Demonstration Barriers: None Learning/educational needs: Lifestyle changes;Home exercise program;Plan of Care Education Provided: Yes, see treatment interventions for education provided Education Provided To: Patient Education Mode/Type: Demonstration;Explanation/Discussi on;Literature/Printed Materials;Performance Response to Education/Teach Back: States/Identifies;Return Demonstration TREATMENT: PT Treatment Interventions: Therapeutic Exercise;Self-Fpc Management Evaluation Evaluation Therapeutic Exercise: 1: *functional DL 5# 10-12 reps 3 sets 2: *functional squat holding 5# DB, core and scapular musculature activated for optiomal posture 3 sets of 10-12 reps 3: *step ups forward and lateral with B #5 DB suitcase carry, emphasis on posture, 10-12 reps, 3 sets Skilled Intervention: Patient was educated in proper exercise technique and purpose for exercises. Skilled judgment was provided in selection of appropriate interventions. Correct performance of therapeutic exercises was facilitated with verbal, visual, and tactile cuing. Additional time necessary for providing HEP and pt. education due to initial evaluation without specific goals or current complaints of pain. Educated patient on rationale for performing exercises in regards to decreasing fatigue , improving fitness, increase ease of ADL, and ROM and function . Patient education as noted. Self-Fpc Management: 1: *substantial time providing education regarding setting specific objective goals that are related to pt. ADLs and hobbies so that PT would be able to best select exercises that will be most effective for pt. (PT provided examples related to farming) 2: *pt. education regarding the difference between physical therapy intervention and personal training services, advised pt. to consider seeing a medical management trainer if his fitness goals involve use of machines or equipment that are beyond basic functional strengthening upon dc from PT 3: *pt. education regarding the importance of functional strengthening exercises, and their effectiveness for maintaing strength and mobility even without external loads/weight 4: *pt. education to progress HEP very slowly, using very light weight, self assessing soreness 24-48 hours after, and progressing as tolerated to complete reps without losing quality of movment. 5: *explained 30 sec sit <> stand test results, functional strength just below WNL for 76 yo male, goal of 11 or more reps. Skilled Intervention: Skilled judgment in the selection of proper modification for activity of daily living/home management based on clinical presentation, deficits, and needs. Physical assistance was provided during education for modifications and patient safety. Provided written instruction for activities of daily living techniques to facilitate proper performance and compliance. Reviewed patient specific diagnosis in relation to activities of daily living/home management. Activity progression based on professional judgement. Instructed on proper lifting and carrying techniques with importance of core activation. Correct performance of home program was facilitated with verbal, visual, and tactile cueing. Billing * Evaluation Low Complexity: 1 Unit Therapeutic Exercise Treatment Minutes: 10 Self-Care/Home Management Treatment Minutes: 15 Total Treatment Time Minutes (timed/untimed): 45 Martina Miguel PT documented in this encounter [facility] 05-05-2022 Instructions Ryann Scott APRN.NETO - 05/05/2022 3:51 PM EDT 1. Get the knee xrays. 2. Schedule w/ physical therapy. documented in this encounter [facility] 05-05-2022 Nurse Note Bilateral ears flushed with warm water. Small amount of cerumen removed. Patient tolerated procedure well. Chirag Rosario LPN documented in this encounter [facility] 05-05-2022 History of Present illness Narrative This is a 76 year old male who presents today with: Patient presents with: Follow Up HISTORY OF PRESENT ILLNESS: Galen Byers is a 76 year old male. Patient presents with: Follow Up Pt presents today for several concerns. Ears are plugged. Refers ears got worse about 6-8 weeks ago. Refers that the hearing aids are getting plugged with wax. Would like to have irrigated. He reports significant improvement for appx 8 months after last irrigation. Has been losing muscle. He is interested in seeking help to build some muscle back. Refers that he is having trouble with weakness (LE and hands). Refers he has been trying to lose some weight -- feels best when he is less than 180 #. Refers that he will lift weights for a little bit, but then not now how to move forward from that point. Bowel movements are irregular. + constipation. Will have to strain. Has tried molassas and honey, but not too effective. No hematochezia/melena. Last colonoscopy in 2016 -- 10 year clearance. Knee pain. Attributes to losing muscle. Refers that it can keep him awake. Refers that he can't lay on his back because his knees hurt. Will take aleve for the knees. No popping/cracking. Does not give out. No swelling. Hyperprolactinemia Continues to follow with Dr. Morataya. HYPERLIPIDEMIA: Patient is taking medications: Yes. Patient is watching diet: Yes. Patient denies myalgias: Yes. Patient denies gi upset: Yes PAST MEDICAL HISTORY: PAST MEDICAL HISTORY Diagnosis Date Diverticulosis of colon (without mention of hemorrhage) Erectile dysfunction 10/12/2013 Family history of colon cancer 12/26/2015 Hyperplasia of prostate Hyperprolactinemia (HCC) \ HYPERTROPHY PROSTATE WITH OBST 09/03/2005 Hypothyroid INGUINAL HERNIA, BILAT, RECURRENT W/O GANGRENE/OBSTRUCTION 09/01/2005 Personal history of colonic polyps Colon polyps Pituitary adenoma (HCC) Pure hypercholesterolemia PAST SURGICAL HISTORY Procedure Laterality Date CHOLECYSTECTOMY COLONOSCOPY FLX DX W/COLLJ SPEC WHEN PFRMD 2004 Colonoscopy COLONOSCOPY FLX DX W/COLLJ SPEC WHEN PFRMD 12/26/09 Repeat in 5 years (-2014) KNEE ARTHROSCOPY/SURGERY RPR 1ST INGUN HRNA AGE 4 YRS/> REDUCIBLE Hernia repair, inguinal, recent laparoscopic, had 2 prior hernia repairs on LT SEPTOPLASTY/SUBMUCOUS RESECJ W/WO CARTILAGE GRF Septoplasty TRANSURETHRAL ELEC-SURG PROSTATECTOM 2009 TURP ALLERGIES [place] Other] [Other] and Pravachol [Pravastatin Sodium] MEDICATIONS Current Outpatient Medications Medication Sig levothyroxine (SYNTHROID) 50 mcg tablet Take 1 tablet by mouth once daily. Take two pills on Sundays bromocriptine (PARLODEL) 2.5 mg tablet Take 1 tablet by mouth two times a week. lovastatin (MEVACOR) 10 mg tablet Take 1 tablet by mouth daily at bedtime. Yhnnc-9-LIM-EPA-Fish Oil (FISH OIL) 1,000 mg (120 mg-180 mg) cap Take 2 capsules by mouth twice daily. niacin (NIACIN) 500 mg tablet Take 500 mg by mouth daily with breakfast. naproxen sodium (ALEVE) 220 mg tablet Take 1 tablet by mouth as needed. No current facility-administered medications for this visit. FAMILY HISTORY Problem Relation Age of Onset Colon Cancer Mother Coronary Artery Disease Father Cancer Brother Social History Tobacco Use Smoking status: Former Smoker Quit date: 09/03/1975 Years since quittin.7 Smokeless tobacco: Never Used Tobacco comment: vary rare usage Vaping Use Vaping Use: Never used Substance Use Topics Alcohol use: Yes Comment: TWICE YEARLY Drug use: No EXAM: BP 138/74 Pulse 68 Resp 18 Ht 173 cm (5' 8.11 ) Wt 81.2 kg (179 lb) SpO2 98% BMI 27.13 kg/m PHYSICAL EXAM: General Appearance: Well appearing, alert, in no acute distress, well-hydrated, well nourished.. Skin: Skin color, texture, turgor normal, no suspicious rashes or lesions. Healing laceration on the right calvo. Head: Normocephalic, no masses, lesions, tenderness or abnormalities. Eyes: Anicteric sclera. Pupils are equally round and reactive to light. Extraocular movements are intact . Ears: External ears normal, canals clear, wax successfully irrigated by nursing. Oropharynx: Lips, mucosa, and tongue normal, teeth and gums normal, oropharynx normal. Neck: Supple, no adenopathy; thyroid symmetric, normal size, no bruits. Lungs: Lungs clear to auscultation. No wheezing, rhonchi, rales.. Heart: RRR without murmur, gallop, or rubs. No ectopy. Abdomen: Abdomen soft, non-tender. Bowel sounds normal. No masses, organomegaly. Extremities: No deformities, edema, skin discoloration, clubbing or cyanosis. Good capillary refill. . Neurologic: Gait normal. Lower extremities equal or nearly equal in bulk and tone. No redness or increased warmth. No axial deformity. No evidence of swelling or ballottable effusion in either knee. Full flexion to 130+ degrees, full extension, negative bounce test. No pain or laxity with varus or valgus stress. No pain with patellar pressure or abnormal tracking. Anterior drawer, Jim, and Zunilda test all negative. ASSESSMENT/PLAN: 1. Wax in ear - ICD9: 380.4, ICD10: H61.20 (primary diagnosis) Successfully irrigated by Nursing. 2. Wound of right lower extremity, subsequent encounter - ICD9: V58.89, 894.0, ICD10: S81.801D Healing Due for tdap. - TDAP VACCINE AGE 7+ IM 3. Pain in both knees, unspecified chronicity - ICD9: 719.46, ICD10: M25.561, M25.562 Suspect arthritic in nature. nsaids helping, but will need to use cautiously d/t kidney function. - XR KNEE GENERAL 4V AP BOTH/PA BOTH/LAT/MERC BILATERAL 4. Strength loss of - ICD9: 780.79, ICD10: R53.1 Feels that he is losing strength. Notices a big change with the ability to complete activities/tasks since last year. Interested in strength training. - CONSULT TO PHYSICAL THERAPY 5. Hyperlipidemia, unspecified hyperlipidemia type - ICD9: 272.4, ICD10: E78.5 - good control - Continue current medication. - LOVASTATIN 10 MG TABLET 6. Hyperprolactinemia (HCC) - ICD9: 253.1, ICD10: E22.1 Continue per endocrinology. 7. Acquired hypothyroidism - ICD9: 244.9, ICD10: E03.9 Continue per endocrinology. 8. Chronic constipation - ICD9: 564.00, ICD10: K59.09 Increase fluids/fiber. Can use miralax as needed. Discussed treatment plan and patient voices understanding. Patient's questions answered appropriately. Medications and potential side effects were discussed and patient voices understanding. Return to the office as scheduled or as needed for worsening/no improvement. Ryann Scott APRN.[employer] documented in this encounter [facility] 03-09-2022 Miscellaneous Notes Requester: Patient Last Visit in Endocrinology: Provider name: Jey Morataya MD , Date 12/15/2021 Next Scheduled Appt in Endo: Visit date not found Last Refill: 02/24/2021 Number of Refills given: 3 Pending Prescriptions Disp Refills LEVOTHYROXINE 50 MCG TABLET 104 tablet 3 Sig: Take 1 tablet by mouth once daily. Take two pills on Sundays HALEIGH: No Please review and advise. Ely Eckert MA documented in this encounter [facility] documented as of this encounter (statuses as of 03/09/2022) [facility]2016 History of Past illness Narrative* Problem Noted Date Resolved Date Family history of colon cancer 12/26/2015 0 12/21/2016 Rectal bleeding 12/26/2015 12/21/2016 documented as of this encounter (statuses as of 05/05/2022) [facility] History of Past illness Narrative* Problem Noted Date Resolved Date Family history of colon cancer 12/26/2015 0 12/21/2016 Rectal bleeding 12/26/2015 12/21/2016 documented as of this encounter (statuses as of 05/26/2022) [facility] History of Past illness Narrative* Problem Noted Date Resolved Date Family history of colon cancer 12/26/2015 0 12/21/2016 Rectal bleeding 12/26/2015 12/21/2016 documented as of this encounter (statuses as of 12/25/2022) [facility] History of Past illness Narrative* Problem Noted Date Resolved Date Family history of colon cancer 12/26/2015 0 12/21/2016 Rectal bleeding 12/26/2015 12/21/2016 documented as of this encounter (statuses as of 01/04/2023) [facility] History of Past illness Narrative* Problem Noted Date Diagnosed Date Resolved Date Family history of colon cancer 12/26/2015 12/21/2016 Rectal bleeding 12/26/2015 12/21/2016 documented as of this encounter (statuses as of 05/10/2023) [address]24-2016 History of Past illness Narrative* Problem Noted Date Diagnosed Date Resolved Date Family history of colon cancer 12/26/2015 12/21/2016 Rectal bleeding 12/26/2015 12/21/2016 documented as of this encounter (statuses as of 05/12/2023) [place] [id number] History of Past illness Narrative* Problem Noted Date Diagnosed Date Resolved Date Family history of colon cancer 12/26/2015 12/21/2016 Rectal bleeding 12/26/2015 12/21/2016 documented as of this encounter (statuses as of 05/21/2023) [address]24[address]2016 History of Past illness Narrative* Problem Noted Date Diagnosed Date Resolved Date Family history of colon cancer 12/26/2015 12/21/2016 Rectal bleeding 12/26/2015 12/21/2016 documented as of this encounter (statuses as of 05/21/2023) [address]24-2016 History of Past illness Narrative* Problem Noted Date Diagnosed Date Resolved Date Family history of colon cancer 12/26/2015 12/21/2016 Rectal bleeding 12/26/2015 12/21/2016 documented as of this encounter (statuses as of 08/08/2023) [address]24[address]2016 History of Past illness Narrative* Problem Noted Date Diagnosed Date Resolved Date Family history of colon cancer 12/26/2015 12/21/2016 Rectal bleeding 12/26/2015 12/21/2016 documented as of this encounter (statuses as of 08/11/2023) [address]2016 History of Past illness Narrative* Problem Noted Date Diagnosed Date Resolved Date Family history of colon cancer 12/26/2015 12/21/2016 Rectal bleeding 12/26/2015 12/21/2016 documented as of this encounter (statuses as of 08/13/2023) [facility] Acquired hypothyroidism Unspecified hypothyroidism [facility] [place] [facility] Diagnosis Wax in ear- Primary Impacted cerumen Wound of right lower extremity, subsequent encounter Pain in both knees, unspecified chronicity Strength loss of Other malaise and fatigue Hyperlipidemia, unspecified hyperlipidemia type Hyperprolactinemia (HCC) Other and unspecified anterior pituitary hyperfunction Acquired hypothyroidism Unspecified hypothyroidism Chronic constipation Unspecified constipation [facility] Strength loss of- Primary Other malaise and fatigue [facility] [place] [facility] Diagnosis 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) documented in this encounter [facility] note* Diagnosis Hyperprolactinemia (HCC)- Primary Other and unspecified anterior pituitary hyperfunction Acquired hypothyroidism Unspecified hypothyroidism Mixed hyperlipidemia Benign prostatic hyperplasia without lower urinary tract symptoms Gross hematuria Change in bowel function Other symptoms involving digestive system Need for hepatitis C screening test Special screening examination for other specified viral diseases History of lumbar spine x-ray Other specified personal history presenting hazards to health Left inguinal pain Abdominal pain, left lower quadrant History of hernia repair Other postprocedural status Hoarseness Dysphonia documented in this encounter [facility] note* Diagnosis Renal insufficiency- Primary Unspecified disorder of kidney and ureter documented in this encounter [facility] note* Diagnosis Rectal bleeding- Primary Hemorrhage of rectum and anus Change in bowel function Other symptoms involving digestive system Left inguinal pain Abdominal pain, left lower quadrant History of hernia repair Other postprocedural status [facility] [place] [facility] Diagnosis Special screening for malignant neoplasms, colon- Primary Change in bowel function Other symptoms involving digestive system Rectal bleeding Hemorrhage of rectum and anus documented in this encounter [facility] note* Diagnosis Prolactinoma- Primary Benign neoplasm of pituitary gland and craniopharyngeal duct (pouch) Acquired hypothyroidism Unspecified hypothyroidism Hyperprolactinemia (HCC) Other and unspecified anterior pituitary hyperfunction Thyroid nodule Nontoxic uninodular goiter Mixed hyperlipidemia Elevated blood pressure reading without diagnosis of hypertension documented in this encounter [facility] note* Diagnosis Change in bowel function- Primary Other symptoms involving digestive system documented in this encounter [facility] for referral (narrative)* Outpatient Procedure (Routine) - Pending Review Specialty Diagnoses / Procedures Referred By Andre perera Referred To Contact [facility] Diagnoses Change in bowel function Rectal bleeding Procedures COLONOSCOPY DIAGNOSTIC COLONOSCOPY FLX DX W/COLLJ SPEC WHEN Jey Pendleton MD [address] [place] [address] [facility] [address] [place] [id number] Referral ID Status Reason Start Date Expiration Date Visits Requested Visits Authorized [id number] Pending Review Auto-Generat ed Referral 05/20/2023 05/20/2024 1 1 [facility] for referral (narrative)* Outpatient Procedure (Routine) - Closed Specialty Diagnoses / Procedures Referred By Andre perera Referred To Contact [facility] Diagnoses Change in bowel function Rectal bleeding Procedures COLONOSCOPY DIAGNOSTIC COLONOSCOPY FLX DX W/COLLJ SPEC WHEN Jey Pendleton MD [address] [place] [address] [address] Referral ID Status Reason Start Date Expiration Date V isits Requested Visits Authorized [id number] Closed Auto-Generate d Referral 05/20/2023 05/20/2024 1 1 [facility] for referral (narrative)* Diagnostic Procedure Only (Routine) - Authorized Specialty Diagnoses / Procedures Referred By Andre perera Referred To Contact [facility] Diagnoses Thyroid nodule Procedures US THYROID/PARATHYROID US SOFT TISSUE HEAD & NECK REAL TIME IMGE DOC Jey Morataya MD [address] [place] [address], [address] [place] [address] [id number] Referral ID Status Reason Start Date Expiration Date Visits Requested Visits Authorized [id number] Authorized Auto-Generat ed Referral 08/11/2023 09/09/2024 1 1 [facility] for visit Narrative* Outpatient Procedure (Routine) - Closed Specialty Diagnoses / Procedures Referred By Andre perera Referred To Contact [facility] Diagnoses Change in bowel function Rectal bleeding Procedures COLONOSCOPY DIAGNOSTIC COLONOSCOPY FLX DX W/COLLJ SPEC WHEN Jey Pendleton MD [address] [place] [address] [facility] [address] [address] Referral ID Status Reason Start Date Expiration Date V isits Requested Visits Authorized [id number] Closed Auto-Generate d Referral 05/20/2023 05/20/2024 1 1 [facility] Advance Directives No Advanced Directives Records FoundDocuments on File Type Date Recorded Patient Solid Waste Analyst Expl anation Advance Directive(s) 01/15/2016 8:36 PM Advance Directive(s) 01/09/2016 12:37 PM Documents on File Type Date Recorded Patient Solid Waste Analyst Expl anation Advance Directive(s) 01/15/2016 8:36 PM Advance Directive(s) 01/09/2016 12:37 PM Reason for Referral Specialty Diagnoses / Procedures Referred By Contac t Referred To Contact [facility] Diagnoses Strength loss of Procedures CONSULT TO PHYSICAL THERAPY PHYSICAL THERAPY EVALUATION HIGH COMPLEX 45 MINS Ryann Scott, TANK STAVE ASSEMBLER.[employer] [address] [place] [address] [facility] [address] [place] [address] Referral ID Status Reason Start Date Expiration Date Visits Requested Visits Authorized [id number] Authorized PCP Requested Referral Auto-Generate d Referral 05/05/2022 05/05/2023 99 99 Specialty Diagnoses / Procedures Referred By Contac t Referred To Contact XR IMAGING Diagnoses Pain in both knees, unspecified chronicity Procedures XR KNEE GENERAL 4V AP BOTH/PA BOTH/LAT/MERC BILATERAL RADIOLOGIC EXAM KNEE COMPLETE 4/MORE VIEWS Ryann Scott, TANK STAVE ASSEMBLER.[employer] [address] [place] [address] Xr Imaging Referral ID Status Reason Start Date Expiration Date V isits Requested Visits Authorized [id number] Closed Auto-Generate d Referral 05/05/2022 06/04/2023 1 1 Specialty Diagnoses / Procedures Referred By Contac t Referred To Contact Ent - Otolaryngology Diagnoses Hoarseness Procedures CONSULT TO ENT OFFICE/OUTPATIENT [facility] MDM 60-74 MINUTES Lou Ramos MD [address] [place] [address] Referral ID Status Reason Start Date Expiration Date Visits Requested Visits Authorized [id number] Authorized PCP Requested Referral 05/10/2023 05/09/2024 1 1 Specialty Diagnoses / Procedures Referred By Contac t Referred To Contact XR IMAGING Diagnoses History of lumbar spine x-ray Procedures XR LUMBAR GENERAL 3V AP/LAT/L5-S1 RADEX SPINE LUMBOSACRAL 2/3 VIEWS Lou Ramos MD [address] [place] [address] Xr Imaging Referral ID Status Reason Start Date Expiration Date V isits Requested Visits Authorized [id number] Closed Auto-Generate d Referral 05/10/2023 06/08/2024 1 1 Specialty Diagnoses / Procedures Referred By Andre t Referred To Contact General Surgery Diagnoses Change in bowel function Left inguinal pain History of hernia repair Procedures CONSULT TO GENERAL SURGERY OFFICE/OUTPATIENT [facility] 60-74 MINUTES Lou Ramos MD [address] [place] [address] Referral ID Status Reason Start Date Expiration Date Visits Requested Visits Authorized [id number] Authorized PCP Requested Referral 05/10/2023 05/09/2024 1 1 Medications Administered Section Inactive Administered Medications - up to 3 most recent administrations Medication Order MAR Action Action Date Dose Rate Site benzocaine 20% 1 Toutle (TOPEX) 1 Toutle, TOPICAL, DIRECTED, Starting on Wed08/03/23 at 1330, Until Wed08/03/23 at 1729, DOSING DIRECTED BY PHYSICIAN FOR PROCEDURAL SEDATION ONLY - Pharmaceutical Waste: Aerosol -, Intraprocedure Given by LIP 08/03/2023 1:01 PM EDT 1 Toutle fentaNYL 50 mcg/mL 25-100 mcg injection (SUBLIMAZE) 25-100 mcg, INTRAVENOUS, DIRECTED, Starting on Wed08/03/23 at 1330, Until Wed08/03/23 at 1729, DOSING DIRECTED BY PHYSICIAN FOR PROCEDURAL SEDATION ONLY, Intraprocedure Given by LIP 08/03/2023 1:05 PM EDT 25 mcg Summary Purpose Family History No Family History Records Found Additional Source Comments Source Comments (unrecognize d section and content) In the event this informatio n is protected by the Federal Confidentiality of Alcohol and Drug Abuse Patient Records regulations: The Federal rules restrict any use of the information to criminally investigate or prosecute any alcohol or drug abuse patient.[facility] the event this information is protected by the Federal Confidentiality of Alcohol and Drug Abuse Patient Records regulations: The Federal rules restrict any use of the information to criminally investigate or prosecute any alcohol or drug abuse patient.[facility] the event this information is protected by the Federal Confidentiality of Alcohol and Drug Abuse Patient Records regulations: The Federal rules restrict any use of the information to criminally investigate or prosecute any alcohol or drug abuse patient.[facility] the event this information is protected by the Federal Confidentiality of Alcohol and Drug Abuse Patient Records regulations: The Federal rules restrict any use of the information to criminally investigate or prosecute any alcohol or drug abuse patient.[facility] the event this information is protected by the Federal Confidentiality of Alcohol and Drug Abuse Patient Records regulations: The Federal rules restrict any use of the information to criminally investigate or prosecute any alcohol or drug abuse patient.[facility] the event this information is protected by the Federal Confidentiality of Alcohol and Drug Abuse Patient Records regulations: The Federal rules restrict any use of the information to criminally investigate or prosecute any alcohol or drug abuse patient.[facility] the event this information is protected by the Federal Confidentiality of Alcohol and Drug Abuse Patient Records regulations: The Federal rules restrict any use of the information to criminally investigate or prosecute any alcohol or drug abuse patient.[facility] the event this information is protected by the Federal Confidentiality of Alcohol and Drug Abuse Patient Records regulations: The Federal rules restrict any use of the information to criminally investigate or prosecute any alcohol or drug abuse patient.[facility] the event this information is protected by the Federal Confidentiality of Alcohol and Drug Abuse Patient Records regulations: The Federal rules restrict any use of the information to criminally investigate or prosecute any alcohol or drug abuse patient.[facility] the event this information is protected by the Federal Confidentiality of Alcohol and Drug Abuse Patient Records regulations: The Federal rules restrict any use of the information to criminally investigate or prosecute any alcohol or drug abuse patient.[facility] the event this information is protected by the Federal Confidentiality of Alcohol and Drug Abuse Patient Records regulations: The Federal rules restrict any use of the information to criminally investigate or prosecute any alcohol or drug abuse patient.[facility] the event this information is protected by the Federal Confidentiality of Alcohol and Drug Abuse Patient Records regulations: The Federal rules restrict any use of the information to criminally investigate or prosecute any alcohol or drug abuse patient.[facility] Reason for Visit (unrecogniz ed section and content) Reason Comments Follow Up Reason Comments PT Eval Specialty Diagnoses / Procedures Referred By Contac t Referred To Contact [facility] Diagnoses Strength loss of Procedures CONSULT TO PHYSICAL THERAPY PHYSICAL THERAPY EVALUATION HIGH COMPLEX 45 MINS Ryann Scott APRN.[employer] [address] [place] [address] [facility] [address] [place] [address] Referral ID Status Reason Start Date Expiration Date Visits Requested Visits Authorized [id number] Authorized PCP Requested Referral Auto-Generate d Referral 05/05/2022 05/05/2023 99 99 Reason Onset Date Comments Refill Request 12/24/2022 Reason Onset Date Comments Population Health Navigation Outreach 01/04/2023 [facility] CARE GAP Reason Comments Yearly Exam Reason Comments Results Reason Comments Consult LEFT INGUINAL HERNIA Specialty Diagnoses / Procedures Referred By Contac t Referred To Contact General Surgery Diagnoses Change in bowel function Left inguinal pain History of hernia repair Procedures CONSULT TO GENERAL SURGERY OFFICE/OUTPATIENT [facility] MDM 60-74 MINUTES Lou Ramos MD [address] [place] [address] Referral ID Status Reason Start Date Expiration Date V isits Requested Visits Authorized [id number] Closed PCP Requested Referral 05/10/2023 05/09/2024 1 1 Reason Comments Follow Up Reason Comments Follow Up Colon & EGD Care Teams (unrecognized sec tion and content) Fructose Loader Relationship Specialty Start Date End Date Lou Ramos MD [address] [place], [place] [id number] PCP - General Family Practice 09/15/18 Fructose Loader Relationship Specialty Start Date End Date Lou Ramos MD [address] [place], [place] [id number] PCP - General Family Practice 09/15/18 Fructose Loader Relationship Specialty Start Date End Date Lou Ramos MD [address] [place], [place] [id number] PCP - General Family Medicine 09/15/18 Fructose Loader Relationship Specialty Start Date End Date Lou Ramos MD [address] [place] [address] PCP - General Family Medicine 09/15/18 Fructose Loader Relationship Specialty Start Date End Date Lou Ramos MD [address] [place], [place] [id number] PCP - General Family Medicine 09/15/18 Fructose Loader Relationship Specialty Start Date End Date Lou Ramos MD [address] [place], [place] [id number] PCP - General Family Medicine 09/15/18 Fructose Loader Relationship Specialty Start Date End Date Lou Ramos MD [address] [place], [place] [address] PCP - General Family Medicine 09/15/18 Fructose Loader Relationship Specialty Start Date End Date Lou Ramos MD [address] [facility], [place] [id number] PCP - General Family Medicine 09/15/18 Fructose Loader Relationship Specialty Start Date End Date Lou Ramos MD [address] [place], [place] [id number] PCP - General Family Medicine 09/15/18 Fructose Loader Relationship Specialty Start Date End Date Lou Ramos MD [address] [place], [place] [id number] PCP - General Family Medicine 09/15/18 (unrecognized sect ion and content) No Status Records Found INFORMATION SOURCE (unrecogn ized section and content) FOR RECORDS PERTAINING TO PATIENTS WHO ARE OR HAVE BEEN ENROLLED IN A CHEMICAL DEPENDENCY/SUBSTANCEABUSE PROGRAM, SOME INFORMATION MAY BE OMITTED. This clinical summary was aggregated from multiple sources. Caution should be exercised in using it in the provision of clinical care. This summary normalizes information from multiple sources, and as a consequence, information in this document may materially change the coding, format and clinical context of patient data. In addition, data may be omitted in some cases. CLINICAL DECISIONS SHOULD BE BASED ON THE PRIMARY CLINICAL RECORDS. [email or web address] provides no warranty or guarantee of the accuracy or completeness of information in this document.
[2023-10-28 16:22] LABS: PSA,Total- Diagnostic 2.81 ng/mL (0.0-4.0)
== END | disposition home or self-care (01) ==
LOC: LAB 14:11
PROVIDERS: PCP Family Medicine; Referring Provider Urology; Visit Provider Urology
DX: R97.20 Elevated prostate specific antigen [PSA] (principal)
CPT/HCPCS: 36415; 84153

== ENCOUNTER → 2024-10-30 | Outpatient (CLI) | payer MEDICARE, OTHER, SELFPAY ==
[2024-10-30 11:47] LABS: PSA,Total- Diagnostic 2.24 ng/mL (0.0-4.0)
== END | disposition home or self-care (01) ==
LOC: LAB 10:30
PROVIDERS: PCP Family Medicine; Referring Provider Nurse Practitioner; Visit Provider Nurse Practitioner
DX: R97.20 Elevated prostate specific antigen [PSA] (principal)
CPT/HCPCS: 36415; 84153